=== PATIENT | female | born 1995 | race Caucasian/White ===

== ENCOUNTER 2016-05-12 11:41 | Emergency (ER) | payer OTHER ==
[2016-05-12] MEDS ORDERED: ONDANSETRON ODT 4 MG TAB PO STA (12:39)
[2016-05-12] MEDS ORDERED: ONDANSETRON 4 MG ODT STARTER PACK 2 TAB BTL PO STA (12:39)
[2016-05-12] MEDS ORDERED: DIPHENOX-ATROP STARTER PACK 8 TAB BTL PO STA (12:39)
[2016-05-12] MEDS ORDERED: DIPHENOX-ATROP 2.5-0.025 MG 1 EACH TAB PO STA (12:39)
--- NOTE | 2016-05-12 12:42 | ED ---
General Adult HPI - General Chief complaint: Nausea/Vomiting/Diarrhea Stated complaint: Vomiting/stomach pain Time Seen by Provider: 05/12/16 12:00 Source: patient, RN notes reviewed Mode of arrival: ambulatory Limitations: no limitations - History of Present Illness Initial comments: This is a 21-year-old female who presents emergency Department complaining of coughing a lot and having started vomiting last evening and having diarrhea since. Patient denies any abdominal pain but she continues to be nauseous. Patient denies any fever or chills. Patient denies any sputum production when she is coughing. Patient denies any difficulty breathing or shortness of breath or chest pain. Patient states she hasn't taken anything for the cough. Patient denies any dysuria hematuria urinary frequency. Patient denies headache patient denies numbness weakness. Patient denies any lightheadedness dizziness and episode. - Related Data Home Medications Medication Instructions Recorded Confirmed EPINEPHrine (Auto Inject) [Epipen] 0.3 mg IM ONCE PRN 07/23/15 05/12/16 Previous Rx's Medication Instructions Recorded Benzonatate [Tessalon Perles] 200 mg PO TID 4 Days 05/12/16 Allergies Allergy/AdvReac Type Severity Reaction Status Date / Time adhesive tape Allergy Rash/Hives Verified 05/12/16 12:41 venom-honey bee Allergy Anaphylaxis Verified 05/12/16 12:41 [bee venom (honey bee)] Review of Systems ROS Statement: Those systems with pertinent positive or pertinent negative responses have been documented in the HPI. ROS Other: All systems not noted in ROS Statement are negative. Past Medical History Past Medical History: Asthma, Hypertension Additional Past Medical History / Comment(s): gestational diabetes History of Any Multi-Drug Resistant Organisms: MRSA Date of last positivie culture/infection: 2014 MDRO Source:: Skin Past Surgical History: Section, Cholecystectomy Past Anesthesia/Blood Transfusion Reactions: Postoperative Nausea & Vomiting ( PONV) Past Psychological History: No Psychological Hx Reported Smoking Status: Never smoker Past Alcohol Use History: None Reported Past Drug Use History: None Reported - Past Family History Mother Family Medical History: No Reported History General Exam - General Exam Comments Initial Comments: GENERAL: Patient is well-developed and well-nourished. Patient is nontoxic and well- hydrated and is in mild distress. ENT: Neck is soft and supple. No significant lymphadenopathy is noted. Oropharynx is clear. Moist mucous membranes. Neck has full range of motion without eliciting any pain. EYES: The sclera were anicteric and conjunctiva were pink and moist. Extraocular movements were intact and pupils were equal round and reactive to light. Eyelids were unremarkable. PULMONARY: Unlabored respirations. Good breath sounds bilaterally. No audible rales rhonchi or wheezing was noted. CARDIOVASCULAR: There is a regular rate and rhythm without any murmurs gallops or rubs. ABDOMEN: Soft and nontender with normal bowel sounds. No palpable organomegaly was noted. There is no palpable pulsatile mass. SKIN: Skin is clear with no lesions or rashes and otherwise unremarkable. NEUROLOGIC: Patient is alert and oriented x3. Cranial nerves II through XII are grossly intact. Motor and sensory are also intact. Normal speech, volume and content. Symmetrical smile. MUSCULOSKELETAL: Normal extremities with adequate strength and full range of motion. No lower extremity swelling or edema. No calf tenderness. LYMPHATICS: No significant lymphadenopathy is noted PSYCHIATRIC: Normal psychiatric evaluation. Normal interpersonal interactions appears functionally intact in deals appropriately with others. No signs of depression. No signs of anxiety. Limitations: no limitations Course Vital Signs 05/12/16 11:49 Temperature 97.8 F Pulse Rate 108 H Respiratory 20 Rate Blood Pressure 131/84 O2 Sat by Pulse 98 Oximetry Medical Decision Making - Medical Decision Making Chest x-ray is normal. Disposition Clinical Impression: Upper respiratory disease, Gastroenteritis Disposition: HOME SELF-CARE Condition: Good Instructions: Gastroenteritis (ED) Prescriptions: Benzonatate [Tessalon Perles] 200 mg PO TID 4 Days Referrals: Felipa Mesa MD [Primary Care Provider] - 1-2 days Time of Disposition: 13:10
--- NOTE | 2016-05-12 13:11 | XR ---
EXAMINATION TYPE: XR chest 2V DATE OF EXAM: 05/12/2016 12:59 PM COMPARISON: Chest x-ray March 12, 2013. HISTORY: Difficulty breathing per order. Coughing per patient. TECHNIQUE: Frontal and lateral views of the chest are obtained. FINDINGS: There is no focal air space opacity, pleural effusion, or pneumothorax seen. The cardiac silhouette size is within normal limits. The osseous structures are intact. Cholecystectomy clips a re redemonstrated. IMPRESSION: No acute cardiopulmonary process. No significant change from prior.
[2016-05-12 13:21] VITALS: BP 133/76; PULSE 90; RESP 16; TEMP 99.1
== END 2016-05-12 13:32 | disposition home or self-care (01) ==
LOC: EC 11:41
DX: K52.9 Noninfective gastroenteritis and colitis, unspecified (principal); J39.9 Disease of upper respiratory tract, unspecified
CPT/HCPCS: 71020; 99284; S0119

== ENCOUNTER 2016-05-14 19:26 | Emergency (ER) | payer OTHER ==
[2016-05-14] MEDS ORDERED: SODIUM CHLORIDE 0.9% 1,000 ML IV STA ×2 (20:08)
[2016-05-14] MEDS ORDERED: ACETAMINOPHEN IV (For NPO) 1,000 MG in SALINE 100 100ML.BAG IVPB STA (20:08)
[2016-05-14] MEDS ORDERED: ONDANSETRON 4 MG/2 ML VIAL IVP STA (20:10)
[2016-05-14] MEDS ORDERED: MECLIZINE 12.5 MG TAB PO STA (20:10)
--- NOTE | 2016-05-14 20:11 | ED ---
General Adult HPI - General Chief complaint: Dizziness Stated complaint: SOB Time Seen by Provider: 05/14/16 20:01 Source: patient, RN notes reviewed, old records reviewed Mode of arrival: ambulatory Limitations: no limitations - History of Present Illness Initial comments: Patient 21-year-old female who presents emergency room today with a chief complaint of increased cough congestion over the last 3 days. Does admit that she was seen here in the emergency room for this a few days ago had a chest x- ray was negative given cough medication go home with. Patient states that symptoms have increased. Admits cough with positive sputum production. Admits to sore throat. States fevers at home. States he really nauseated and having some vomiting. States feeling dizzy lightheaded at times. He describes as room spinning. Denies any other complaints associated symptoms. Patient denies any recent shortness of breath, chest pain, back pain, abdominal pain, nausea or vomiting, numbness or tingling, dysuria or hematuria, constipation or diarrhea, headaches or visual changes, or any other complaints. - Related Data Home Medications Medication Instructions Recorded Confirmed EPINEPHrine (Auto Inject) [Epipen] 0.3 mg IM ONCE PRN 07/23/15 05/14/16 Ibuprofen [Motrin] 200 mg PO Q6HR PRN 05/14/16 05/14/16 Previous Rx's Medication Instructions Recorded Benzonatate [Tessalon Perles] 200 mg PO TID 4 Days 05/12/16 Acetaminophen Tab [Tylenol] 1,000 mg PO TID 5 Days 05/14/16 Ibuprofen [Motrin] 600 mg PO Q6HR PRN #20 day 05/14/16 Oseltamivir [Tamiflu] 75 mg PO Q12HR 5 Days 05/14/16 Allergies Allergy/AdvReac Type Severity Reaction Status Date / Time adhesive tape Allergy Rash/Hives Verified 05/14/16 20:20 venom-honey bee Allergy Anaphylaxis Verified 05/14/16 20:20 [bee venom (honey bee)] Review of Systems ROS Statement: Those systems with pertinent positive or pertinent negative responses have been documented in the HPI. ROS Other: All systems not noted in ROS Statement are negative. Past Medical History Past Medical History: Asthma, Hypertension Additional Past Medical History / Comment(s): gestational diabetes History of Any Multi-Drug Resistant Organisms: MRSA Date of last positivie culture/infection: 2015 MDRO Source:: Skin Past Surgical History: Section, Cholecystectomy Past Anesthesia/Blood Transfusion Reactions: Postoperative Nausea & Vomiting ( PONV) Past Psychological History: No Psychological Hx Reported Smoking Status: Never smoker Past Alcohol Use History: None Reported Past Drug Use History: None Reported - Past Family History Mother Family Medical History: No Reported History General Exam - General Exam Comments Initial Comments: General: The patient is awake and alert, in no distress, and does not appear acutely ill. Eye: Pupils are equal, round and reactive to light, extra-ocular movements are intact. No nystagmus. There is normal conjunctiva bilaterally. No signs of icterus. Ears, nose, mouth and throat: There are moist mucous membranes and no oral lesions. Neck: The neck is supple, there is no tenderness or JVD. Cardiovascular: There is a regular rate and rhythm. No murmur, rub or gallop is appreciated. Respiratory: Lungs are clear to auscultation, respirations are non-labored, breath sounds are equal. No wheezes, stridor, rales, or rhonchi. Gastrointestinal: Soft, non-distended, non-tender abdomen without masses or organomegaly noted. There is no rebound or guarding present. No CVA tenderness. Bowel sounds are unremarkable. Musculoskeletal: Normal ROM, no tenderness. Strength 5/5. Sensation intact. Pulses equal bilaterally 2+. Neurological: A&O x 3. CN II-XII intact, There are no obvious motor or sensory deficits. Coordination appears grossly intact. Speech is normal. Skin: Skin is warm and dry and no rashes or lesions are noted. Psychiatric: Cooperative, appropriate mood & affect, normal judgment. Limitations: no limitations Course Vital Signs 05/14/16 19:55 Temperature 103.1 F H Pulse Rate 124 H Respiratory 20 Rate Blood Pressure 130/85 O2 Sat by Pulse 98 Oximetry Medical Decision Making - Medical Decision Making Patient has been on menstrual cycle. Labs reviewed shows large amount of blood in the urinalysis. Patient remained labs shows influenza B-positive chest x- rays negative. Patient reexamined at this time her recurrent 106 receiving approximately half the bolus at this time. We'll remain for the remaining bolus. Feeling better. Fever improved for 101.3F. Patient was started on Tamiflu his symptoms started 2 days ago advised continue Tylenol / ibuprofen. - Lab Data Result diagrams: 05/14/16 20:50 05/14/16 20:50 Lab Results 05/14/16 05/14/16 05/14/16 Range/Units 20:50 20:50 20:50 WBC 4.8 (3.8-10.6) k/uL RBC 4.84 (3.80-5.40) m/uL Hgb 14.2 (11.4-16.0) gm/dL Hct 42.6 (34.0-46.0) % MCV 88.0 (80.0-100.0) fL MCH 29.4 (25.0-35.0) pg MCHC 33.4 (31.0-37.0) g/dL RDW 13.2 (11.5-15.5) % Plt Count 200 (150-450) k/uL Neutrophils % 64 % Lymphocytes % 26 % Monocytes % 6 % Eosinophils % 1 % Basophils % 0 % Neutrophils # 3.1 (1.3-7.7) k/uL Lymphocytes # 1.3 (1.0-4.8) k/uL Monocytes # 0.3 (0-1.0) k/uL Eosinophils # 0.0 (0-0.7) k/uL Basophils # 0.0 (0-0.2) k/uL Sodium 140 (137-145) mmol/L Potassium 4.0 (3.5-5.1) mmol/L Chloride 104 (98-107) mmol/L Carbon Dioxide 25 (22-30) mmol/L Anion Gap 11 mmol/L BUN 13 (7-17) mg/dL Creatinine 0.72 (0.52-1.04) mg/dL Est GFR (MDRD) Af Amer >60 (>60 ml/min/1.73 sqM) Est GFR (MDRD) Non-Af >60 (>60 ml/min/1.73 sqM) Glucose 80 (74-99) mg/dL Calcium 9.0 (8.4-10.2) mg/dL Total Bilirubin 0.5 (0.2-1.3) mg/dL AST 30 (14-36) U/L ALT 39 (9-52) U/L Alkaline Phosphatase 74 (38-126) U/L Total Protein 7.1 (6.3-8.2) g/dL Albumin 4.2 (3.5-5.0) g/dL Urine Color Urine Appearance (Clear) Urine pH (5.0-8.0) Ur Specific [place] (1.001-1.035) Urine Protein (Negative) Urine Glucose (UA) (Negative) Urine Ketones (Negative) Urine Blood (Negative) Urine Nitrate (Negative) Urine Bilirubin (Negative) Urine Urobilinogen (<2.0) mg/dL Ur Leukocyte Esterase (Negative) Urine RBC (0-5) /hpf Urine WBC (0-5) /hpf Ur Squamous Epith Cells (0-4) /hpf Urine Mucus (None) /hpf Influenza Type A RNA Not Detected (Not Detectd) Influenza Type B (PCR) Detected H (Not Detectd) Group A Strep Rapid (Negative) 05/14/16 05/14/16 Range/Units 20:50 20:50 WBC (3.8-10.6) k/uL RBC (3.80-5.40) m/uL Hgb (11.4-16.0) gm/dL Hct (34.0-46.0) % MCV (80.0-100.0) fL MCH (25.0-35.0) pg MCHC (31.0-37.0) g/dL RDW (11.5-15.5) % Plt Count (150-450) k/uL Neutrophils % % Lymphocytes % % Monocytes % % Eosinophils % % Basophils % % Neutrophils # (1.3-7.7) k/uL Lymphocytes # (1.0-4.8) k/uL Monocytes # (0-1.0) k/uL Eosinophils # (0-0.7) k/uL Basophils # (0-0.2) k/uL Sodium (137-145) mmol/L Potassium (3.5-5.1) mmol/L Chloride (98-107) mmol/L Carbon Dioxide (22-30) mmol/L Anion Gap mmol/L BUN (7-17) mg/dL Creatinine (0.52-1.04) mg/dL Est GFR (MDRD) Af Amer (>60 ml/min/1.73 sqM) Est GFR (MDRD) Non-Af (>60 ml/min/1.73 sqM) Glucose (74-99) mg/dL Calcium (8.4-10.2) mg/dL Total Bilirubin (0.2-1.3) mg/dL AST (14-36) U/L ALT (9-52) U/L Alkaline Phosphatase (38-126) U/L Total Protein (6.3-8.2) g/dL Albumin (3.5-5.0) g/dL Urine Color Light Red Urine Appearance Clear (Clear) Urine pH 5.5 (5.0-8.0) Ur Specific [place] 1.022 (1.001-1.035) Urine Protein 1+ H (Negative) Urine Glucose (UA) Negative (Negative) Urine Ketones Negative (Negative) Urine Blood Large H (Negative) Urine Nitrate Negative (Negative) Urine Bilirubin Negative (Negative) Urine Urobilinogen <2.0 (<2.0) mg/dL Ur Leukocyte Esterase Trace H (Negative) Urine RBC >182 H (0-5) /hpf Urine WBC 20 H (0-5) /hpf Ur Squamous Epith Cells 3 (0-4) /hpf Urine Mucus Rare H (None) /hpf Influenza Type A RNA (Not Detectd) Influenza Type B (PCR) (Not Detectd) Group A Strep Rapid Negative (Negative) Disposition Clinical Impression: Influenza B Disposition: HOME SELF-CARE Condition: Good Instructions: Influenza (ED) Additional Instructions: Please use medication as discussed. Please follow-up with family doctor in the next 2 days of symptoms have not improved. Please return to emergency room if the symptoms increase or worsen or for any other concerns. Prescriptions: Acetaminophen Tab [Tylenol] 1,000 mg PO TID 5 Days Ibuprofen [Motrin] 600 mg PO Q6HR PRN #20 day PRN Reason: Pain Oseltamivir [Tamiflu] 75 mg PO Q12HR 5 Days Time of Disposition: 21:45
[2016-05-14 21:11] LABS: Basophils % (A) 0 %; CH 29.8; Eosinophils % (A) 1 %; HCT 42.6 % (34.0-46.0); HDW 2.97; HGB 14.2 gm/dL (11.4-16.0); Luc # (Auto) 0.12; Luc % (Auto) 3; Lymphocytes # (A) 1.3 k/uL (1.0-4.8); Lymphocytes % (A) 26 %; MCH 29.4 pg (25.0-35.0); MCHC 33.4 g/dL (31.0-37.0); Mean Platelet Volume 7.6; Monocytes # (A) 0.3 k/uL (0-1.0); Monocytes % (A) 6 %; Neutrophils # (A) 3.1 k/uL (1.3-7.7); Neutrophils % (A) 64 %; RBC 4.84 m/uL (3.80-5.40); RDW 13.2 % (11.5-15.5); WBC 4.8 k/uL (3.8-10.6); WBC (Perox) 4.57
[2016-05-14 21:19] LABS: Appearance,Urine Clear (Clear); Bilirubin,Urine Negative (Negative); Glucose,Urine (UA) Negative (Negative); Ketones,Urine Negative (Negative); Leukocyte Esterase,Urine Trace (Negative); Mucus,Urine Rare /hpf; Nitrite,Urine Negative (Negative); PH, Urine 5.5 (5.0-8.0); Particle Count 12196; Protein,Urine 1+ (Negative); RBC,Urine >182 /hpf (0-5); Specific Gravity,Urine 1.022 (1.001-1.035); Squamous Epithelial Cell,Urine 3 /hpf (0-4); UA Billing (MACRO vs. MICRO) MICRO; Urobilinogen,Urine <2.0 mg/dL (<2.0); WBC,Urine 20 /hpf (0-5)
[2016-05-14 21:26] LABS: ALT 39 U/L (9-52); AST 30 U/L (14-36); Alkaline Phosphatase 74 U/L (38-126); Anion Gap 11 mmol/L; Blood Urea Nitrogen 13 mg/dL (7-17); Carbon Dioxide 25 mmol/L (22-30); Chloride 104 mmol/L (98-107); Glucose 80 mg/dL (74-99); Non-African American GFR(MDRD) >60 (>60 ml/min/1.73 sqM); Sodium 140 mmol/L (137-145); Total Bilirubin 0.5 mg/dL (0.2-1.3); Total Protein 7.1 g/dL (6.3-8.2)
--- NOTE | 2016-05-14 21:42 | XR ---
EXAMINATION TYPE: XR chest 2V DATE OF EXAM: 05/14/2016 9:22 PM COMPARISON: 05/12/2016 HISTORY: Cough and congestion TECHNIQUE: Frontal and lateral views of the chest are obtained. FINDINGS: Heart and mediastinum are normal. Lungs are clear. Diaphragm is normal. Bony thorax is int act. IMPRESSION: Normal chest. No change.
[2016-05-14] MEDS ORDERED: IBUPROFEN 600 MG TAB PO STA (21:44)
[2016-05-14 22:05] VITALS: BP 106/58; PULSE 102; RESP 18; TEMP 101.4
== END 2016-05-14 22:05 | disposition home or self-care (01) ==
LOC: EC 19:26
DX: J10.1 Influenza due to other identified influenza virus with other respiratory manifestations (principal); R42 Dizziness and giddiness; R11.2 Nausea with vomiting, unspecified; Z91.030 Bee allergy status; Z91.048 Other nonmedicinal substance allergy status
CPT/HCPCS: 36415; 93005; 80053; 85025; 81001; 87040; 87086; 87081; 87430; 87502; 71020; 99284; 96374; 96375; 96361; J2405; J0131

== ENCOUNTER 2017-03-12 11:38 | Emergency (ER) | payer OTHER ==
[2017-03-12 11:59] VITALS: BP 125/85; PULSE 97; RESP 16; TEMP 98.9
--- NOTE | 2017-03-12 12:42 | ED ---
URI HPI - General Chief Complaint: Upper Respiratory Infection Stated Complaint: Cough Time Seen by Provider: 03/12/17 11:59 Source: patient Mode of arrival: ambulatory Limitations: no limitations - History of Present Illness Initial Comments: 22-year-old female patient presents to the emergency department today with complaints of cough and upper respiratory symptoms. Patient states that symptoms started 2-3 days ago. She states that she has had sore throat, nasal congestion, and cough. States that she does have coughing episodes that are so bad they cause her to vomit. She denies any fevers or chills with this. She denies any sputum production. She states her children have been sick with similar symptoms over the last week or 2. She states that she does become short of breath at times. Patient denies any recent rash, chest pain, abdominal pain, nausea, vomiting, diarrhea, constipation, back pain, numbness, tingling, dizziness, weakness, hematuria, dysuria, urinary urgency, urinary frequency, headache, visual changes, or any other complaints. - Related Data Home Medications Medication Instructions Recorded Confirmed EPINEPHrine (Auto Inject) [Epipen] 0.3 mg IM ONCE PRN 07/23/15 05/14/16 Ibuprofen [Motrin] 200 mg PO Q6HR PRN 05/14/16 05/14/16 Previous Rx's Medication Instructions Recorded Benzonatate [Tessalon Perles] 200 mg PO TID 4 Days capsule 05/12/16 Acetaminophen Tab [Tylenol] 1,000 mg PO TID 5 Days tablet 05/14/16 Ibuprofen [Motrin] 600 mg PO Q6HR PRN #20 day 05/14/16 Oseltamivir [Tamiflu] 75 mg PO Q12HR 5 Days cap 05/14/16 Benzonatate [Tessalon Perles] 100 mg PO TID #15 cap 03/12/17 Promethaz-Cod 6.25-10 mg/5 ml 5 ml PO Q6HR PRN #100 ml 03/12/17 [Phenergan with Codeine] Allergies Allergy/AdvReac Type Severity Reaction Status Date / Time adhesive tape Allergy Rash/Hives Verified 03/12/17 11:56 venom-honey bee Allergy Anaphylaxis Verified 03/12/17 11:56 [bee venom (honey bee)] Review of Systems ROS Statement: Those systems with pertinent positive or pertinent negative responses have been documented in the HPI. ROS Other: All systems not noted in ROS Statement are negative. Past Medical History Past Medical History: Asthma, Hypertension Additional Past Medical History / Comment(s): gestational diabetes History of Any Multi-Drug Resistant Organisms: MRSA Date of last positivie culture/infection: 2014 MDRO Source:: Skin Past Surgical History: Section, Cholecystectomy Past Anesthesia/Blood Transfusion Reactions: Postoperative Nausea & Vomiting ( PONV) Past Psychological History: No Psychological Hx Reported Smoking Status: Never smoker Past Alcohol Use History: None Reported Past Drug Use History: None Reported - Past Family History Mother Family Medical History: No Reported History General Exam Limitations: no limitations General appearance: alert, in no apparent distress, other (This is a well- developed, well-nourished, obese female patient in no acute distress. Vital signs upon presentation are temperature 98.9F, pulse 97, respirations 16, blood pressure 125/85, pulse ox 100% on room air.) Eye exam: Present: normal appearance, PERRL, EOMI. Absent: scleral icterus, conjunctival injection, periorbital swelling ENT exam: Present: normal exam, normal oropharynx, mucous membranes moist Neck exam: Present: normal inspection. Absent: tenderness, meningismus, lymphadenopathy Respiratory exam: Present: normal lung sounds bilaterally, other (Persistent cough noted throughout exam). Absent: respiratory distress, wheezes, rales, rhonchi, stridor Cardiovascular Exam: Present: regular rate, normal rhythm, normal heart sounds. Absent: systolic murmur, diastolic murmur, rubs, gallop, clicks GI/Abdominal exam: Present: soft, normal bowel sounds. Absent: distended, tenderness, guarding, rebound, rigid Neurological exam: Present: alert, oriented X3, CN II-XII intact Psychiatric exam: Present: normal affect, normal mood Skin exam: Present: warm, dry, intact, normal color. Absent: rash Course Vital Signs 03/12/17 11:56 Temperature 98.9 F Pulse Rate 97 Respiratory 16 Rate Blood Pressure 125/85 O2 Sat by Pulse 100 Oximetry Medical Decision Making - Medical Decision Making 22-year-old female patient presented to the emergency department today for evaluation of cough and upper respiratory symptoms. Physical examination was unremarkable. Lungs are clear to auscultation with good air movement. Patient had even nonlabored respirations. She did exhibit a dry cough throughout the exam. Chest x-ray was clear for any acute cardiopulmonary process. Influenza testing was negative. Patient symptoms are consistent with viral upper respiratory infection. She is instructed to increase her fluids. She is instructed to use [id number] cold remedies such as Mucinex however reports that she does not have money to buy these things. She will be given a prescription for Tessalon Perles for use during the day and Phenergan with codeine for use at night. She is instructed to follow-up with her primary care physician for recheck in 1-2 days. She is instructed to return here immediately for any new, worsening, or concerning symptoms. She verbalizes understanding and agrees with this plan. - Lab Data Lab Results 03/12/17 Range/Units 12:25 Influenza Type A RNA Not Detected (Not Detectd) Influenza Type B (PCR) Not Detected (Not Detectd) - Radiology Data Radiology results: report reviewed, image reviewed 2 views of the chest are obtained and show no focal airspace opacity. No evidence for pneumothorax. No pleural effusion. The cardiac silhouette size is within normal limits. The osseous structures are grossly intact. Impression by Dr. Peoples shows no acute cardiopulmonary process. Disposition Clinical Impression: Viral upper respiratory illness Disposition: HOME SELF-CARE Condition: Good Instructions: Upper Respiratory Infection (ED) Additional Instructions: Increase fluids. Rest. Use [id number] nasal decongestants for symptom relief. Take cough medication as directed. Follow-up with your primary care physician for recheck in 1-2 days. Return here immediately for any new, worsening, or concerning symptoms. Prescriptions: Benzonatate [Tessalon Perles] 100 mg PO TID #15 cap Promethaz-Cod 6.25-10 mg/5 ml [Phenergan with Codeine] 5 ml PO Q6HR PRN #100 ml PRN Reason: Cough Referrals: Felipa Mesa MD [Primary Care Provider] - 1-2 days Time of Disposition: 13:16
--- NOTE | 2017-03-12 12:44 | XR ---
EXAMINATION TYPE: XR chest 2V DATE OF EXAM: 03/12/2017 COMPARISON: 05/14/2016 HISTORY: Chest pain TECHNIQUE: Frontal and lateral views of the chest are obtained. FINDINGS: There is no focal air space opacity. No evidence for pneumothorax. No pleural effusion. The cardiac silhouette size is within normal limits. The osseous structures are grossly intact. IMPRESSION: 1. No acute cardiopulmonary process.
== END 2017-03-12 13:23 | disposition home or self-care (01) ==
LOC: EC 11:38
DX: J06.9 Acute upper respiratory infection, unspecified (principal); Z86.14 Personal history of Methicillin resistant Staphylococcus aureus infection; Z91.030 Bee allergy status; Z91.048 Other nonmedicinal substance allergy status
CPT/HCPCS: 71046; 87502; 99283

== ENCOUNTER 2017-12-09 11:37 | Emergency (ER) | payer OTHER ==
[2017-12-09 11:44] VITALS: BP 146/96; PULSE 96; RESP 20; TEMP 98.1
--- NOTE | 2017-12-09 12:05 | ED ---
General Adult HPI - General Chief complaint: Dental/Oral Stated complaint: dental pain Time Seen by Provider: 12/09/17 11:46 Source: patient, RN notes reviewed Mode of arrival: ambulatory Limitations: no limitations - History of Present Illness Initial comments: Patient's a 22-year-old female presents emergency room today with a chief complaint of increased dental pain. Patient admits that she's been trying follow-up with a dentist. Patient states that increased pain on both the right upper and lower jaw. States that was in teeth pushing 3. She states that she' s had small pieces that appropriate way. Patient admits increased pain over the last day. Denies any drainage. States she's been using [id number] Tylenol/ibuprofen for pain. Denies any other complaints or symptoms. Patient denies any recent fever, chills, shortness of breath, chest pain, back pain, abdominal pain, nausea or vomiting, or any other complaints. - Related Data Home Medications Medication Instructions Recorded Confirmed EPINEPHrine (Auto Inject) [Epipen] 0.3 mg IM ONCE PRN 07/23/15 05/14/16 Ibuprofen [Motrin] 200 mg PO Q6HR PRN 05/14/16 05/14/16 Previous Rx's Medication Instructions Recorded Benzonatate [Tessalon Perles] 200 mg PO TID 4 Days capsule 05/12/16 Acetaminophen Tab [Tylenol] 1,000 mg PO TID 5 Days tablet 05/14/16 Ibuprofen [Motrin] 600 mg PO Q6HR PRN #20 day 05/14/16 Oseltamivir [Tamiflu] 75 mg PO Q12HR 5 Days cap 05/14/16 Benzonatate [Tessalon Perles] 100 mg PO TID #15 cap 03/12/17 Promethaz-Cod 6.25-10 mg/5 ml 5 ml PO Q6HR PRN #100 ml 03/12/17 [Phenergan with Codeine] Acetaminophen Tab [Tylenol] 1,000 mg PO TID 5 Days tablet 12/09/17 Ibuprofen [Motrin] 600 mg PO Q6HR PRN #40 day 12/09/17 Penicillin V Potassium [Pen Vee K] 500 mg PO QID #40 tablet 12/09/17 Allergies Allergy/AdvReac Type Severity Reaction Status Date / Time adhesive tape Allergy Rash/Hives Verified 12/09/17 11:40 venom-honey bee Allergy Anaphylaxis Verified 12/09/17 11:40 [bee venom (honey bee)] Review of Systems ROS Statement: Those systems with pertinent positive or pertinent negative responses have been documented in the HPI. ROS Other: All systems not noted in ROS Statement are negative. Past Medical History Past Medical History: Asthma, Hypertension Additional Past Medical History / Comment(s): gestational diabetes History of Any Multi-Drug Resistant Organisms: MRSA Date of last positivie culture/infection: 2014 MDRO Source:: Skin Past Surgical History: Section, Cholecystectomy Past Anesthesia/Blood Transfusion Reactions: Postoperative Nausea & Vomiting ( PONV) Past Psychological History: No Psychological Hx Reported Smoking Status: Never smoker Past Alcohol Use History: None Reported Past Drug Use History: None Reported - Past Family History Mother Family Medical History: No Reported History General Exam - General Exam Comments Initial Comments: General: The patient is awake and alert, in no distress, and does not appear acutely ill. Eye: Extra-ocular movements are intact. No nystagmus. There is normal conjunctiva bilaterally. No signs of icterus. Ears, nose, mouth and throat: There are moist mucous membranes and no oral lesions. Patient does have tenderness over to teeth 1 and 32. No Drainable abscess. Uvula midline. Patient swallows without difficulty. Neck: The neck is supple, there is no tenderness or JVD. Musculoskeletal: Normal ROM, no tenderness. Sensation intact. Neurological: A&O x 3. CN II-XII intact, There are no obvious motor or sensory deficits. Coordination appears grossly intact. Speech is normal. Skin: Skin is warm and dry and no rashes or lesions are noted. Psychiatric: Cooperative, appropriate mood & affect, normal judgment. Limitations: no limitations Course Vital Signs 12/09/17 11:40 Temperature 98.1 F Pulse Rate 96 Respiratory 20 Rate Blood Pressure 146/96 O2 Sat by Pulse 95 Oximetry Medical Decision Making - Medical Decision Making Patient was given information to follow up with dentist. Patient will be started on antibiotics of penicillin. Advised continue Tylenol/ibuprofen. Advised warm compresses and saltwater gargles. Disposition Clinical Impression: Pain, dental Disposition: HOME SELF-CARE Condition: Good Instructions: Toothache (ED) Additional Instructions: Please follow-up with dentist and use antibiotic and pain medication as discussed. [facility] [place] [id number] [address] [phone]) (existing clients only) For new clients: [phone] [facility] Pay $50 for x-rays and the rest discovered [phone] Prescriptions: Acetaminophen Tab [Tylenol] 1,000 mg PO TID 5 Days tablet Ibuprofen [Motrin] 600 mg PO Q6HR PRN #40 day PRN Reason: Pain Penicillin V Potassium [Pen Vee K] 500 mg PO QID #40 tablet Is patient prescribed a controlled substance at d/c from ED?: No Referrals: Felipa Mesa MD [Primary Care Provider] - 1-2 days Time of Disposition: 12:04
== END 2017-12-09 12:10 | disposition home or self-care (01) ==
LOC: EC 11:37
DX: K08.89 Other specified disorders of teeth and supporting structures (principal); R68.84 Jaw pain; Z86.14 Personal history of Methicillin resistant Staphylococcus aureus infection; Z91.048 Other nonmedicinal substance allergy status; Z91.030 Bee allergy status
CPT/HCPCS: 99282

== ENCOUNTER 2018-01-31 21:27 | Emergency (ER) | payer OTHER ==
[2018-01-31] MEDS ORDERED: KETOROLAC 30 MG/ML 1 ML VIAL IVP STA (23:03)
--- NOTE | 2018-01-31 23:08 | ED ---
Chest Pain HPI - General Chief Complaint: Chest Pain Stated Complaint: Chest pain, left arm numb Time Seen by Provider: 01/31/18 22:08 Source: patient, RN notes reviewed Mode of arrival: ambulatory Limitations: no limitations - History of Present Illness Initial Comments: This is a 22-year-old female with no prior history of heart or lung disease who does not smoke who states she had the onset of chest pain this morning around 6 AM she states this started with some left arm numbness and left chest discomfort some dizziness with nausea she states that nausea is gone so some dizziness the pain initially was 6/10 severity now is 4-5/10 he does he worse with certain movements she's had no cough no fevers chills sweats no palpitations or other symptoms. MD Complaint: chest pain, other - Related Data Previous Rx's Medication Instructions Recorded Ibuprofen 800 mg PO Q6HR PRN #20 tablet 02/01/18 predniSONE 20 mg PO BID #10 tab 02/01/18 Allergies Allergy/AdvReac Type Severity Reaction Status Date / Time adhesive tape Allergy Rash/Hives Verified 01/31/18 22:41 venom-honey bee Allergy Anaphylaxis Verified 01/31/18 22:41 [bee venom (honey bee)] Review of Systems ROS Statement: Those systems with pertinent positive or pertinent negative responses have been documented in the HPI. ROS Other: All systems not noted in ROS Statement are negative. EKG Findings - EKG Results: EKG: interpreted by PRIYA, sinus rhythm (Sinus rhythm rate 93 NV interval 142 QRS 84 QT since QTC 364/432 minimal voltage criteria for LVH) Past Medical History Past Medical History: Asthma, Hypertension Additional Past Medical History / Comment(s): gestational diabetes History of Any Multi-Drug Resistant Organisms: MRSA Date of last positivie culture/infection: 2014 MDRO Source:: Skin Past Surgical History: Section, Cholecystectomy Past Anesthesia/Blood Transfusion Reactions: Postoperative Nausea & Vomiting ( PONV) Past Psychological History: No Psychological Hx Reported Smoking Status: Never smoker Past Alcohol Use History: None Reported Past Drug Use History: None Reported - Past Family History Mother Family Medical History: No Reported History General Exam - General Exam Comments Initial Comments: This is a well-developed well-nourished awake alert oriented 3 female Limitations: no limitations General appearance: alert, in no apparent distress Head exam: Present: atraumatic, normocephalic, normal inspection Eye exam: Present: normal appearance, PERRL, EOMI. Absent: scleral icterus, conjunctival injection, periorbital swelling ENT exam: Present: normal exam, mucous membranes moist Neck exam: Present: normal inspection. Absent: tenderness, meningismus, lymphadenopathy Respiratory exam: Present: normal lung sounds bilaterally, chest wall tenderness (Reproducible tennis palpation along the costal chondral and costosternal margins mostly on the left. No step-off no crepitation). Absent: respiratory distress, wheezes, rales, rhonchi, stridor Cardiovascular Exam: Present: regular rate, normal rhythm, normal heart sounds. Absent: systolic murmur, diastolic murmur, rubs, gallop, clicks GI/Abdominal exam: Present: soft, normal bowel sounds. Absent: distended, tenderness, guarding, rebound, rigid Extremities exam: Present: normal inspection, full ROM, normal capillary refill. Absent: tenderness, pedal edema, joint swelling, calf tenderness Back exam: Present: normal inspection Neurological exam: Present: alert, oriented X3, CN II-XII intact Psychiatric exam: Present: normal affect, normal mood Skin exam: Present: warm, dry, intact, normal color. Absent: rash Course Vital Signs 01/31/18 01/31/18 21:28 23:31 Temperature 99.1 F Pulse Rate 104 H 82 Respiratory 18 16 Rate Blood Pressure 148/85 118/58 O2 Sat by Pulse 99 100 Oximetry Chest Pain MDM - MDM I did review the imaging and report no acute findings. Patient's presentation is consistent with costochondritis I did have a long discussion with her and her family member was present regarding the findings patient be discharged on appropriate medication she did get a lot of relief from the Toradol. She'll be given medication prior to discharge and prescriptions. Disposition Clinical Impression: Chest wall syndrome, Costalchondritis Disposition: HOME SELF-CARE Condition: Good Instructions: Costochondritis (ED) Prescriptions: Ibuprofen 800 mg PO Q6HR PRN #20 tablet PRN Reason: Pain predniSONE 20 mg PO BID #10 tab Is patient prescribed a controlled substance at d/c from ED?: No Referrals: Felipa Mesa MD [Primary Care Provider] - 1-2 days
--- NOTE | 2018-01-31 23:23 | XR ---
EXAMINATION TYPE: XR chest 2V DATE OF EXAM: 01/31/2018 COMPARISON: 03/12/2017 HISTORY: Left arm numbness TECHNIQUE: Frontal and lateral views of the chest are obtained. FINDINGS: Heart and mediastinum are normal. Lungs are clear. Diaphragm is normal. Bony thorax appear s normal. IMPRESSION: Normal chest. No change.
[2018-01-31 23:59] LABS: Basophils % (A) 0 %; Eosinophils # (A) 0.1 k/uL (0-0.7); Eosinophils % (A) 1 %; HCT 40.1 % (34.0-46.0); HGB 13.2 gm/dL (11.4-16.0); Lymphocytes # (A) 2.2 k/uL (1.0-4.8); Lymphocytes % (A) 38 %; MCH 28.9 pg (25.0-35.0); MCHC 32.9 g/dL (31.0-37.0); MCV 87.7 fL (80.0-100.0); Mean Platelet Volume 8.2; Monocytes # (A) 0.3 k/uL (0-1.0); Monocytes % (A) 5 %; Neutrophils # (A) 3.1 k/uL (1.3-7.7); Neutrophils % (A) 53 %; Platelet Count 245 k/uL (150-450); RBC 4.57 m/uL (3.80-5.40); WBC 5.7 k/uL (3.8-10.6)
[2018-02-01 00:07] LABS: ALT 26 U/L (9-52); AST 27 U/L (14-36); Albumin 3.5 g/dL (3.5-5.0); Alkaline Phosphatase 53 U/L (38-126); Amylase 33 U/L (30-110); Anion Gap 8 mmol/L; Blood Urea Nitrogen 13 mg/dL (7-17); Calcium 9.1 mg/dL (8.4-10.2); Carbon Dioxide 23 mmol/L (22-30); Chloride 110 mmol/L (98-107); Glucose 126 mg/dL (74-99); Lipase 58 U/L (23-300); Potassium 4.2 mmol/L (3.5-5.1); Sodium 141 mmol/L (137-145); Total Bilirubin 0.3 mg/dL (0.2-1.3)
[2018-02-01 00:13] LABS: D-Dimer 0.5 mg/L FEU (<0.60); Partial Thromboplastin Time 22.5 sec (22.0-30.0); Prothrombin Time 9.5 sec (9.0-12.0)
[2018-02-01 00:24] LABS: Creatine Kinase 79 U/L (30-135)
[2018-02-01 00:37] LABS: Creatine Kinase MB <0.2 ng/mL (0.0-2.4); Troponin I <0.012 ng/mL (0.000-0.034)
[2018-02-01] MEDS ORDERED: HYDROmorphone 1 MG/ML 1 ML SYRINGE IVP STA (00:39)
[2018-02-01] MEDS ORDERED: methylPREDNISolone SOD SUCCI 125 MG/2 ML VIAL IV STA (00:40)
[2018-02-01] MEDS ORDERED: ONDANSETRON 4 MG/2 ML VIAL IVP STA (00:40)
[2018-02-01 01:08] VITALS: BP 130/90; PULSE 100; RESP 18; TEMP 97.5
== END 2018-02-01 01:07 | disposition home or self-care (01) ==
LOC: EC 21:27
DX: M94.0 Chondrocostal junction syndrome [Tietze] (principal); R20.0 Anesthesia of skin; R42 Dizziness and giddiness; R11.0 Nausea; J45.909 Unspecified asthma, uncomplicated; Z86.14 Personal history of Methicillin resistant Staphylococcus aureus infection; Z91.048 Other nonmedicinal substance allergy status; Z91.030 Bee allergy status
CPT/HCPCS: 36415; 93005; 85379; 83880; 80053; 82150; 82550; 82553; 83690; 83735; 84484; 85025; 85610; 85730; 71046; 99285; 96374; 96375 ×3; J2930; J2405; J1885; J1170

== ENCOUNTER 2018-02-13 07:40 | Emergency (ER) | payer OTHER ==
[2018-02-13] MEDS ORDERED: KETOROLAC 30 MG/ML 1 ML VIAL IVP STA (08:05)
[2018-02-13] MEDS ORDERED: SODIUM CHLORIDE 0.9% 1,000 ML IV STA (08:05)
[2018-02-13] MEDS ORDERED: LORazepam 2 MG/ML INJ IV STA (08:05)
--- NOTE | 2018-02-13 08:20 | ED ---
General Adult HPI - General Chief complaint: Chest Pain Stated complaint: Chest pain/nausea Time Seen by Provider: 02/13/18 07:44 Source: patient, EMS, RN notes reviewed, old records reviewed Mode of arrival: EMS Limitations: no limitations - History of Present Illness Initial comments: Patient 22-year-old female presenting to the emergency room today with a chief complaint of left-sided chest pain that started this morning at 6 AM when she was getting out of bed. She states that it's a sharp pain worse with certain movements. She does admit that she had similar pain a few weeks ago was seen here in the emergency room for this. She states she was concerned this morning as the pain was sharp some more intense and she felt like her throat was closing. She is unsure if she was having a panic attack. Patient states she's never felt like that in the past. She states symptoms have improved greatly at this time. Still expresses some pain to the left side of the chest wall that she rates at 5/10. States throat closing sensation is gone away. She does admit that she has numbness tingling into the left hand. Patient also felt nauseated. EMS did give her some Zofran and she is feeling better. Patient denies any other complaints at this time. Patient denies any recent fever, chills, shortness of breath, back pain, abdominal pain, vomiting, numbness or tingling, headaches or visual changes, or any other complaints. - Related Data Previous Rx's Medication Instructions Recorded Ibuprofen 800 mg PO Q6HR PRN #20 tablet 02/01/18 predniSONE 20 mg PO BID #10 tab 02/01/18 Ibuprofen [Motrin] 600 mg PO Q6HR PRN #40 day 02/13/18 Allergies Allergy/AdvReac Type Severity Reaction Status Date / Time adhesive tape Allergy Rash/Hives Verified 01/31/18 22:41 venom-honey bee Allergy Anaphylaxis Verified 01/31/18 22:41 [bee venom (honey bee)] Review of Systems ROS Statement: Those systems with pertinent positive or pertinent negative responses have been documented in the HPI. ROS Other: All systems not noted in ROS Statement are negative. Past Medical History Past Medical History: Asthma, Hypertension Additional Past Medical History / Comment(s): gestational diabetes History of Any Multi-Drug Resistant Organisms: MRSA Date of last positivie culture/infection: 2014 MDRO Source:: Skin Past Surgical History: Section, Cholecystectomy Past Anesthesia/Blood Transfusion Reactions: Postoperative Nausea & Vomiting ( PONV) Past Psychological History: No Psychological Hx Reported Smoking Status: Never smoker Past Alcohol Use History: None Reported Past Drug Use History: None Reported - Past Family History Mother Family Medical History: No Reported History General Exam - General Exam Comments Initial Comments: General: The patient is awake and alert, in no distress, and does not appear acutely ill. Eye: Pupils are equal, round and reactive to light, extra-ocular movements are intact. No nystagmus. There is normal conjunctiva bilaterally. No signs of icterus. Ears, nose, mouth and throat: There are moist mucous membranes and no oral lesions. Neck: The neck is supple, there is no tenderness or JVD. Cardiovascular: There is a regular rate and rhythm. No murmur, rub or gallop is appreciated. Chest pain reproduced to the anterior left side of the chest wall on palpation. Respiratory: Lungs are clear to auscultation, respirations are non-labored, breath sounds are equal. No wheezes, stridor, rales, or rhonchi Musculoskeletal: Normal ROM. Tender to palpation on the left side of the chest wall. Strength 5/5. Sensation intact. Pulses equal bilaterally 2+. Neurological: A&O x 3. CN II-XII intact, There are no obvious motor or sensory deficits. Coordination appears grossly intact. Speech is normal. Skin: Skin is warm and dry and no rashes or lesions are noted. Psychiatric: Cooperative, appropriate mood & affect, normal judgment. Limitations: no limitations Course Vital Signs 02/13/18 07:53 Temperature 99.1 F Pulse Rate 91 Respiratory 19 Rate Blood Pressure 129/70 O2 Sat by Pulse 97 Oximetry EKG Findings - EKG Comments: EKG Findings:: EKG performed at 0747: Shows normal sinus rhythm at 98 bpm. HI interval 140. QRS 70. QT/QTC 350/446. No acute ST changes. Medical Decision Making - Medical Decision Making Patient reexamined at this time shows no signs of distress she is resting comfortably. Patient does admit that symptoms have resolved after Toradol, Ativan here in the emergency room. Patient will be discharged home continued on anti-inflammatories. Her chest x-ray and labs have been reviewed. EKG showed normal sinus rhythm. Case discussed with attending physician Dr. Grimes. He had recent visit to the emergency room which was reviewed had a negative D- dimer test at that time. Patient currently doing well. Her pain is reproduced to palpation on the left side of the chest wall is felt to be musculoskeletal. She is. Following up with the family doctor over the next 2 days. Advised return if symptoms increase worsen or any other concerns. - Lab Data Result diagrams: 02/13/18 07:50 02/13/18 07:50 Lab Results 02/13/18 02/13/18 02/13/18 Range/Units 07:50 07:50 07:50 WBC 5.7 (3.8-10.6) k/uL RBC 4.37 (3.80-5.40) m/uL Hgb 12.7 (11.4-16.0) gm/dL Hct 37.4 (34.0-46.0) % MCV 85.6 (80.0-100.0) fL MCH 28.9 (25.0-35.0) pg MCHC 33.8 (31.0-37.0) g/dL RDW 13.5 (11.5-15.5) % Plt Count 223 (150-450) k/uL Neutrophils % 65 % Lymphocytes % 27 % Monocytes % 5 % Eosinophils % 2 % Basophils % 0 % Neutrophils # 3.7 (1.3-7.7) k/uL Lymphocytes # 1.5 (1.0-4.8) k/uL Monocytes # 0.3 (0-1.0) k/uL Eosinophils # 0.1 (0-0.7) k/uL Basophils # 0.0 (0-0.2) k/uL PT (9.0-12.0) sec INR (<1.2) APTT (22.0-30.0) sec Sodium 141 (137-145) mmol/L Potassium 4.2 (3.5-5.1) mmol/L Chloride 108 H (98-107) mmol/L Carbon Dioxide 24 (22-30) mmol/L Anion Gap 9 mmol/L BUN 16 (7-17) mg/dL Creatinine 0.63 (0.52-1.04) mg/dL Est GFR (CKD-EPI)AfAm >90 (>60 ml/min/1.73 sqM) Est GFR (CKD-EPI)NonAf >90 (>60 ml/min/1.73 sqM) Glucose 160 H (74-99) mg/dL Calcium 9.0 (8.4-10.2) mg/dL Total Bilirubin 0.3 (0.2-1.3) mg/dL AST 19 (14-36) U/L ALT 29 (9-52) U/L Alkaline Phosphatase 57 (38-126) U/L Total Creatine Kinase 41 (30-135) U/L CK-MB (CK-2) <0.2 (0.0-2.4) ng/mL CK-MB (CK-2) Rel Index Troponin I <0.012 (0.000-0.034) ng/mL Total Protein 5.7 L (6.3-8.2) g/dL Albumin 3.4 L (3.5-5.0) g/dL Urine Color Urine Appearance (Clear) Urine pH (5.0-8.0) Ur Specific [place] (1.001-1.035) Urine Protein (Negative) Urine Glucose (UA) (Negative) Urine Ketones (Negative) Urine Blood (Negative) Urine Nitrite (Negative) Urine Bilirubin (Negative) Urine Urobilinogen (<2.0) mg/dL Ur Leukocyte Esterase (Negative) Urine RBC (0-5) /hpf Urine WBC (0-5) /hpf Ur Squamous Epith Cells (0-4) /hpf Urine Bacteria (None) /hpf Urine Mucus (None) /hpf Urine HCG, Qual (Not Detectd) 02/13/18 02/13/18 02/13/18 Range/Units 07:50 07:50 07:50 WBC (3.8-10.6) k/uL RBC (3.80-5.40) m/uL Hgb (11.4-16.0) gm/dL Hct (34.0-46.0) % MCV (80.0-100.0) fL MCH (25.0-35.0) pg MCHC (31.0-37.0) g/dL RDW (11.5-15.5) % Plt Count (150-450) k/uL Neutrophils % % Lymphocytes % % Monocytes % % Eosinophils % % Basophils % % Neutrophils # (1.3-7.7) k/uL Lymphocytes # (1.0-4.8) k/uL Monocytes # (0-1.0) k/uL Eosinophils # (0-0.7) k/uL Basophils # (0-0.2) k/uL PT 9.4 (9.0-12.0) sec INR 0.9 (<1.2) APTT 23.1 (22.0-30.0) sec Sodium (137-145) mmol/L Potassium (3.5-5.1) mmol/L Chloride (98-107) mmol/L Carbon Dioxide (22-30) mmol/L Anion Gap mmol/L BUN (7-17) mg/dL Creatinine (0.52-1.04) mg/dL Est GFR (CKD-EPI)AfAm (>60 ml/min/1.73 sqM) Est GFR (CKD-EPI)NonAf (>60 ml/min/1.73 sqM) Glucose (74-99) mg/dL Calcium (8.4-10.2) mg/dL Total Bilirubin (0.2-1.3) mg/dL AST (14-36) U/L ALT (9-52) U/L Alkaline Phosphatase (38-126) U/L Total Creatine Kinase (30-135) U/L CK-MB (CK-2) (0.0-2.4) ng/mL CK-MB (CK-2) Rel Index Troponin I (0.000-0.034) ng/mL Total Protein (6.3-8.2) g/dL Albumin (3.5-5.0) g/dL Urine Color Light Yellow Urine Appearance Clear (Clear) Urine pH 5.0 (5.0-8.0) Ur Specific [place] 1.013 (1.001-1.035) Urine Protein Negative (Negative) Urine Glucose (UA) Negative (Negative) Urine Ketones Negative (Negative) Urine Blood Large H (Negative) Urine Nitrite Negative (Negative) Urine Bilirubin Negative (Negative) Urine Urobilinogen <2.0 (<2.0) mg/dL Ur Leukocyte Esterase Negative (Negative) Urine RBC 39 H (0-5) /hpf Urine WBC 1 (0-5) /hpf Ur Squamous Epith Cells 2 (0-4) /hpf Urine Bacteria Rare H (None) /hpf Urine Mucus Rare H (None) /hpf Urine HCG, Qual Not Detected (Not Detectd) Disposition Clinical Impression: Chest wall pain Disposition: HOME SELF-CARE Condition: Good Instructions: Chest Wall Pain (ED) Additional Instructions: Please use medication as discussed. Please follow-up with family doctor in the next 2 days of symptoms have not improved. Please return to emergency room if the symptoms increase or worsen or for any other concerns. Prescriptions: Ibuprofen [Motrin] 600 mg PO Q6HR PRN #40 day PRN Reason: Pain Is patient prescribed a controlled substance at d/c from ED?: No Referrals: Felipa Mesa MD [Primary Care Provider] - 1-2 days Time of Disposition: 10:21
[2018-02-13 08:45] LABS: Basophils % (A) 0 %; Eosinophils # (A) 0.1 k/uL (0-0.7); Eosinophils % (A) 2 %; HCT 37.4 % (34.0-46.0); HGB 12.7 gm/dL (11.4-16.0); Lymphocytes # (A) 1.5 k/uL (1.0-4.8); Lymphocytes % (A) 27 %; MCH 28.9 pg (25.0-35.0); MCHC 33.8 g/dL (31.0-37.0); MCV 85.6 fL (80.0-100.0); Mean Platelet Volume 7.7; Monocytes # (A) 0.3 k/uL (0-1.0); Monocytes % (A) 5 %; Neutrophils # (A) 3.7 k/uL (1.3-7.7); Neutrophils % (A) 65 %; Platelet Count 223 k/uL (150-450); RBC 4.37 m/uL (3.80-5.40); RDW 13.5 % (11.5-15.5); WBC 5.7 k/uL (3.8-10.6)
[2018-02-13 08:51] LABS: Appearance,Urine Clear (Clear); Bacteria,Urine Rare /hpf; Bilirubin,Urine Negative (Negative); Blood,Urine Large (Negative); Color,Urine Light Yellow; Glucose,Urine (UA) Negative (Negative); Ketones,Urine Negative (Negative); Leukocyte Esterase,Urine Negative (Negative); Mucus,Urine Rare /hpf; Nitrite,Urine Negative (Negative); Protein,Urine Negative (Negative); RBC,Urine 39 /hpf (0-5); Specific Gravity,Urine 1.013 (1.001-1.035); Squamous Epithelial Cell,Urine 2 /hpf (0-4); Urobilinogen,Urine <2.0 mg/dL (<2.0)
[2018-02-13 08:53] LABS: ALT 29 U/L (9-52); AST 19 U/L (14-36); Albumin 3.4 g/dL (3.5-5.0); Alkaline Phosphatase 57 U/L (38-126); Anion Gap 9 mmol/L; Blood Urea Nitrogen 16 mg/dL (7-17); Carbon Dioxide 24 mmol/L (22-30); Chloride 108 mmol/L (98-107); Glucose 160 mg/dL (74-99); Potassium 4.2 mmol/L (3.5-5.1); Sodium 141 mmol/L (137-145); Total Bilirubin 0.3 mg/dL (0.2-1.3); Total Protein 5.7 g/dL (6.3-8.2)
--- NOTE | 2018-02-13 08:54 | XR ---
EXAMINATION TYPE: XR chest 2V DATE OF EXAM: 02/13/2018 HISTORY: Fever and chills. REFERENCE: Previous study dated 01/31/2018. FINDINGS: The heart is mildly enlarged. There is mild vascular congestion without interstitial change . Pleural spaces are clear. IMPRESSION: 1. MILD CARDIOMEGALY. 2. VASCULAR CONGESTION.
[2018-02-13 08:58] LABS: INR 0.9 (<1.2); Partial Thromboplastin Time 23.1 sec (22.0-30.0); Prothrombin Time 9.4 sec (9.0-12.0)
[2018-02-13 09:16] LABS: Creatine Kinase 41 U/L (30-135)
[2018-02-13 09:29] LABS: Creatine Kinase MB <0.2 ng/mL (0.0-2.4); Troponin I <0.012 ng/mL (0.000-0.034)
[2018-02-13 10:26] VITALS: BP 119/81; PULSE 72; RESP 18; TEMP 98.4
== END 2018-02-13 10:27 | disposition home or self-care (01) ==
LOC: EC 07:40
DX: R07.89 Other chest pain (principal); R11.0 Nausea; Z91.048 Other nonmedicinal substance allergy status; Z91.030 Bee allergy status
CPT/HCPCS: 36415; 93005; 80053; 82550; 82553; 84484; 85025; 85610; 85730; 81001; 81025; 71046; 99285; 96374; 96375; 96361; J2060; J1885

== ENCOUNTER 2018-02-16 18:46 | Emergency (ER) | payer OTHER ==
[2018-02-16] MEDS ORDERED: LORazepam 1 MG TAB PO STA (20:32)
--- NOTE | 2018-02-16 21:03 | ED ---
Psych HPI - General Chief Complaint: Psychiatric Symptoms Stated Complaint: Mental Health Time Seen by Provider: 02/16/18 19:21 Source: patient, family, RN notes reviewed, old records reviewed Mode of arrival: ambulatory - History of Present Illness Initial Comments: Patient is a 22-year-old female with a history of anxiety and panic disorder. She presents today feeling like she is going to . She certainly started on Paxil by her primary care provider today. Patient states that she has this feeling of impending doom. She states that today she started to have feelings of suicidal thoughts. No specific plan. She states she does have a good life and knows that she will not complete suicidal action. She denies any other physical complaints at this time. - Related Data Home Medications Medication Instructions Recorded Confirmed Cyclobenzaprine [Flexeril] 10 mg PO TID PRN 02/16/18 02/16/18 PARoxetine [Paxil] 20 mg PO DAILY 02/16/18 02/16/18 Previous Rx's Medication Instructions Recorded Ibuprofen [Motrin] 600 mg PO Q6HR PRN #40 day 02/13/18 Allergies Allergy/AdvReac Type Severity Reaction Status Date / Time adhesive tape Allergy Rash/Hives Verified 02/16/18 19:48 prednisone Allergy Swelling Verified 02/16/18 19:48 venom-honey bee Allergy Anaphylaxis Verified 02/16/18 19:48 [bee venom (honey bee)] Review of Systems ROS Statement: Those systems with pertinent positive or pertinent negative responses have been documented in the HPI. ROS Other: All systems not noted in ROS Statement are negative. Past Medical History Past Medical History: Asthma, Hypertension Additional Past Medical History / Comment(s): gestational diabetes History of Any Multi-Drug Resistant Organisms: MRSA Date of last positivie culture/infection: 2014 MDRO Source:: Skin Past Surgical History: Section, Cholecystectomy Past Anesthesia/Blood Transfusion Reactions: Postoperative Nausea & Vomiting ( PONV) Past Psychological History: Anxiety, Panic Disorder Smoking Status: Never smoker Past Alcohol Use History: None Reported Past Drug Use History: None Reported - Past Family History Mother Family Medical History: No Reported History General Exam - General Exam Comments Initial Comments: This is an anxious appearing 22-year-old female. No acute distress. General: Well appearing, well nourished, in no distress. Oriented x 3, normal mood and affect . Ambulating without difficulty. Skin: Good turgor, no rash, unusual bruising or prominent lesions Hair: Normal texture and distribution. HEENT: Head: Normocephalic, atraumatic, no visible or palpable masses, depressions, or scaring. Eyes: Visual acuity intact, conjunctiva clear, sclera non-icteric, EOM intact, PERRL. Ears: EACs clear, TMs translucent & cone of light visualized. hearing intact. Nose: No external lesions, mucosa non-inflamed, septum and turbinates normal Mouth: Mucous membranes moist, no mucosal lesions. Teeth/Gums: No obvious caries or periodontal disease. No gingival inflammation or significant resorption. Pharynx: Mucosa non-inflamed, no tonsillar hypertrophy or exudate Neck: Supple, without lesions, bruits, or adenopathy, thyroid non-enlarged and non-tender Heart: No cardiomegaly or thrills; regular rate and rhythm, no murmur or gallop Lungs: Clear to auscultation and percussion Abdomen: Bowel sounds normal, no tenderness, organomegaly, masses, or hernia Extremities: No amputations or deformities, cyanosis, edema or varicosities, peripheral pulses intact Musculoskeletal: Normal gait and station. No misalignment, asymmetry, crepitation, defects, tenderness, masses, effusions, decreased range of motion, instability, atrophy or abnormal strength or tone in the head, neck, spine, ribs , pelvis or extremities. Neurologic: CN 2-12 normal. Sensation to pain, touch, and proprioception normal. DTRs normal in upper and lower extremities. No pathologic reflexes. Psychiatric: Oriented X3, Patient is anxious. States she's panicked. Feels impending doom. Limitations: no limitations Course Vital Signs 02/16/18 02/16/18 19:03 21:15 Temperature 98.4 F 99.1 F Pulse Rate 122 H 89 Respiratory 20 18 Rate Blood Pressure 126/80 138/78 O2 Sat by Pulse 99 98 Oximetry Medical Decision Making - Medical Decision Making 20 for a female history of panic disorder presents today with anxiety. She states she's had fleeting suicidal thoughts. No specific plan. At this time Patient is medically clear for EPS violation. Patient was seen by EPS. Patient was deemed to be discharged home with stable outpatient condition she' ll follow up with services. They do request 1 mg of Ativan by mouth to take at home for anxiety. Patient will be given give the Patient 1mgAtivan here in the emergency department. All questions answered return parameters were discussed. Following up outpatient counseling services. - Lab Data Lab Results 02/16/18 02/16/18 Range/Units 20:42 20:42 Urine HCG, Qual Not Detected (Not Detectd) Urine Opiates Screen Not Detected (NotDetected) Ur Oxycodone Screen Not Detected (NotDetected) Urine Methadone Screen Not Detected (NotDetected) Ur Propoxyphene Screen Not Detected (NotDetected) Ur Barbiturates Screen Not Detected (NotDetected) U Tricyclic Antidepress Not Detected (NotDetected) Ur Phencyclidine Scrn Not Detected (NotDetected) Ur Amphetamines Screen Not Detected (NotDetected) U Methamphetamines Scrn Not Detected (NotDetected) U Benzodiazepines Scrn Detected H (NotDetected) Urine Cocaine Screen Not Detected (NotDetected) U Marijuana (THC) Screen Not Detected (NotDetected) Disposition Clinical Impression: Anxiety, Panic disorder Disposition: HOME SELF-CARE Condition: Good Instructions: Help Prevent Suicide (ED), Anxiety (ED) Additional Instructions: Patient advised to follow-up with outpatient referrals for anxiety and depression. Return to emergency department if any alarming signs or symptoms occur. Is patient prescribed a controlled substance at d/c from ED?: No Referrals: Felipa Mesa MD [Primary Care Provider] - 1-2 days Time of Disposition: 21:03
[2018-02-16 21:11] LABS: Amphetamine Screen,Urine Not Detected (NotDetected); Barbiturate Screen,Urine Not Detected (NotDetected); Benzodiazepines Screen,Urine Detected (NotDetected); Cocaine Screen,Urine Not Detected (NotDetected); Methadone Screen, Urine Not Detected (NotDetected); Opiate Screen,Urine Not Detected (NotDetected); Oxycodone Screen, Urine Not Detected (NotDetected); Phencyclidine Screen,Urine Not Detected (NotDetected); Tricyclic Antidepressant,Urine Not Detected (NotDetected); Urn Cannabinoid Scrn Not Detected (NotDetected)
[2018-02-16 21:16] VITALS: BP 138/78; PULSE 89; RESP 18; TEMP 99.1
== END 2018-02-16 21:14 | disposition home or self-care (01) ==
LOC: EC 18:46
DX: F41.0 Panic disorder [episodic paroxysmal anxiety] (principal); R45.851 Suicidal ideations; Z86.14 Personal history of Methicillin resistant Staphylococcus aureus infection; Z79.899 Other long term (current) drug therapy; Z91.048 Other nonmedicinal substance allergy status; Z91.030 Bee allergy status; Z88.8 Allergy status to other drugs, medicaments and biological substances
CPT/HCPCS: 80306; 81025; 82075; 99285

== ENCOUNTER 2018-02-17 20:03 | Emergency (ER) | payer OTHER ==
[2018-02-17 20:21] VITALS: TEMP 97.8
[2018-02-17 21:16] LABS: Amphetamine Screen,Urine Not Detected (NotDetected); Barbiturate Screen,Urine Not Detected (NotDetected); Benzodiazepines Screen,Urine Detected (NotDetected); Cocaine Screen,Urine Not Detected (NotDetected); Methadone Screen, Urine Not Detected (NotDetected); Opiate Screen,Urine Not Detected (NotDetected); Oxycodone Screen, Urine Not Detected (NotDetected); Phencyclidine Screen,Urine Not Detected (NotDetected); Tricyclic Antidepressant,Urine Not Detected (NotDetected); Urn Cannabinoid Scrn Not Detected (NotDetected)
--- NOTE | 2018-02-17 23:39 | ED ---
Psych HPI - General Source: patient, EMS, RN notes reviewed, old records reviewed Mode of arrival: EMS <Jasmin Jackson - Last Filed: 02/21/18 01:31> <Carol Castro P - Last Filed: 02/25/18 03:52> - General Stated Complaint: Mental Health Time Seen by Provider: 02/17/18 20:18 - History of Present Illness Initial Comments: 22-year-old female presents emergency room today with suicidal ideation. She sees images per minute yesterday for similar complaints. She states that she feels unsafe with herself. Patient reports that she's anxious. Has a pending doom feeling. (Jasmin Jackson) - Related Data Home Medications Medication Instructions Recorded Confirmed Cyclobenzaprine [Flexeril] 10 mg PO TID PRN 02/16/18 02/17/18 PARoxetine [Paxil] 20 mg PO DAILY 02/16/18 02/17/18 LORazepam [Ativan] 1 mg PO ONCE 02/17/18 02/17/18 hydrOXYzine HCL [Atarax] 25 mg PO TID PRN 02/17/18 02/17/18 Previous Rx's Medication Instructions Recorded Ibuprofen [Motrin] 600 mg PO Q6HR PRN #40 day 02/13/18 Allergies Allergy/AdvReac Type Severity Reaction Status Date / Time adhesive tape Allergy Rash/Hives Verified 02/17/18 20:28 prednisone Allergy Swelling Verified 02/17/18 20:28 venom-honey bee Allergy Anaphylaxis Verified 02/17/18 20:28 [bee venom (honey bee)] Review of Systems ROS Other: All systems not noted in ROS Statement are negative. <Jasmin Jackson - Last Filed: 02/21/18 01:31> ROS Other: All systems not noted in ROS Statement are negative. <Carol Castro P - Last Filed: 02/25/18 03:52> ROS Statement: Those systems with pertinent positive or pertinent negative responses have been documented in the HPI. Past Medical History Past Medical History: Asthma, Hypertension Additional Past Medical History / Comment(s): gestational diabetes History of Any Multi-Drug Resistant Organisms: MRSA Date of last positivie culture/infection: 2014 MDRO Source:: Skin Past Surgical History: Section, Cholecystectomy Past Anesthesia/Blood Transfusion Reactions: Postoperative Nausea & Vomiting ( PONV) Past Psychological History: Anxiety, Panic Disorder Smoking Status: Never smoker Past Alcohol Use History: None Reported Past Drug Use History: None Reported - Past Family History Mother Family Medical History: No Reported History <Jasmin Jackson - Last Filed: 02/21/18 01:31> General Exam Limitations: no limitations General appearance: alert, in no apparent distress, anxious Head exam: Present: atraumatic, normocephalic, normal inspection Eye exam: Present: normal appearance, PERRL, EOMI. Absent: scleral icterus, conjunctival injection, periorbital swelling ENT exam: Present: normal exam, mucous membranes moist Respiratory exam: Present: normal lung sounds bilaterally. Absent: respiratory distress, wheezes, rales, rhonchi, stridor Cardiovascular Exam: Present: regular rate, normal rhythm, normal heart sounds. Absent: systolic murmur, diastolic murmur, rubs, gallop, clicks Extremities exam: Present: normal inspection, full ROM, normal capillary refill. Absent: tenderness, pedal edema, joint swelling, calf tenderness Back exam: Present: normal inspection Neurological exam: Present: alert, oriented X3, CN II-XII intact Psychiatric exam: Present: normal affect, depressed (Fleeting suicidal thoughts and manic. Patient denies plan. ) Skin exam: Present: warm, dry, intact, normal color. Absent: rash <Jasmin Jackson - Last Filed: 02/21/18 01:31> <Carol Castro P - Last Filed: 02/25/18 03:52> - General Exam Comments Initial Comments: 22-year-old female. Alert and oriented. Patient is Anxious. (Jasmin Jackson) Vital Signs 02/17/18 02/18/18 20:10 01:30 Temperature 97.8 F Pulse Rate 119 H 103 H Respiratory 16 18 Rate Blood Pressure 154/86 139/60 O2 Sat by Pulse 94 L 96 Oximetry Medical Decision Making <Jasmin Jackson - Last Filed: 02/21/18 01:31> <Carol Castro P - Last Filed: 02/25/18 03:52> - Medical Decision Making Patient presents emergency room for second time for fleeting suicidal thoughts and anxiety. Patient this time is medically clear for EPS evaluation. EPS evaluated the Patient and states the Patient safer discharge home. Patient has been advised that close follow-up with her primary care physician. Crisis unit [facility]. (Jasmin Jackson) I was available for consultation in the emergency department. The history and physical exam were done by the midlevel provider. I was consulted for this patient's care. I reviewed the case with the midlevel provider and based on their presentation of the patient, I agree with the assessment, medical decision making and plan of care as documented. (Carol Castro) - Lab Data Lab Results 02/17/18 Range/Units 20:38 Urine Opiates Screen Not Detected (NotDetected) Ur Oxycodone Screen Not Detected (NotDetected) Urine Methadone Screen Not Detected (NotDetected) Ur Propoxyphene Screen Not Detected (NotDetected) Ur Barbiturates Screen Not Detected (NotDetected) U Tricyclic Antidepress Not Detected (NotDetected) Ur Phencyclidine Scrn Not Detected (NotDetected) Ur Amphetamines Screen Not Detected (NotDetected) U Methamphetamines Scrn Not Detected (NotDetected) U Benzodiazepines Scrn Detected H (NotDetected) Urine Cocaine Screen Not Detected (NotDetected) U Marijuana (THC) Screen Not Detected (NotDetected) Disposition Is patient prescribed a controlled substance at d/c from ED?: No Time of Disposition: 23:52 <Jasmin Jackson - Last Filed: 02/21/18 01:31> <Carlo Castro - Last Filed: 02/25/18 03:52> Clinical Impression: Anxiety Disposition: HOME SELF-CARE Condition: Good Instructions: Help Prevent Suicide (ED) Additional Instructions: Patient advised to follow-up with primary care physician. Return to emergency department if any alarming signs or symptoms occur. Referrals: Felipa Mesa MD [Primary Care Provider] - 1-2 days
[2018-02-18 01:41] VITALS: BP 139/60; PULSE 103; RESP 18
== END 2018-02-18 01:30 | disposition home or self-care (01) ==
LOC: EC 20:03
DX: F41.0 Panic disorder [episodic paroxysmal anxiety] (principal); R45.851 Suicidal ideations; Z86.14 Personal history of Methicillin resistant Staphylococcus aureus infection; Z79.899 Other long term (current) drug therapy; Z88.8 Allergy status to other drugs, medicaments and biological substances; Z91.030 Bee allergy status; Z91.048 Other nonmedicinal substance allergy status
CPT/HCPCS: 80306; 82075; 99285

== ENCOUNTER 2018-03-04 17:44 | Emergency (ER) | payer OTHER ==
[2018-03-04 17:56] VITALS: TEMP 97.6
[2018-03-04 19:26] LABS: Basophils % (A) 0 %; Eosinophils # (A) 0.2 k/uL (0-0.7); Eosinophils % (A) 3 %; HCT 41.7 % (34.0-46.0); HGB 13.7 gm/dL (11.4-16.0); Lymphocytes # (A) 1.8 k/uL (1.0-4.8); Lymphocytes % (A) 29 %; MCH 27.9 pg (25.0-35.0); MCHC 32.8 g/dL (31.0-37.0); MCV 84.8 fL (80.0-100.0); Mean Platelet Volume 7.4; Monocytes # (A) 0.3 k/uL (0-1.0); Monocytes % (A) 5 %; Neutrophils # (A) 3.8 k/uL (1.3-7.7); Neutrophils % (A) 61 %; Platelet Count 240 k/uL (150-450); RBC 4.91 m/uL (3.80-5.40); RDW 13.6 % (11.5-15.5); WBC 6.2 k/uL (3.8-10.6)
[2018-03-04 19:30] LABS: Amorphous Sediment,Urine Rare /hpf; Appearance,Urine Cloudy (Clear); Bilirubin,Urine Negative (Negative); Blood,Urine Negative (Negative); Color,Urine Yellow; Glucose,Urine (UA) Negative (Negative); Ketones,Urine Negative (Negative); Leukocyte Esterase,Urine Negative (Negative); Mucus,Urine Occasional /hpf; Nitrite,Urine Negative (Negative); Protein,Urine Trace (Negative); RBC,Urine 21 /hpf (0-5); Specific Gravity,Urine 1.025 (1.001-1.035); Squamous Epithelial Cell,Urine 7 /hpf (0-4); Urobilinogen,Urine <2.0 mg/dL (<2.0)
[2018-03-04] MEDS ORDERED: SODIUM CHLORIDE 0.9% 1,000 ML IV STA (19:36)
--- NOTE | 2018-03-04 19:36 | ED ---
General Adult HPI - General Chief complaint: Allergic Reaction Stated complaint: vision trouble Time Seen by Provider: 03/04/18 18:33 Source: patient, RN notes reviewed Mode of arrival: ambulatory Limitations: no limitations - History of Present Illness Initial comments: Patient is a 22-year-old female presenting to the emergency room today with a chief complaint of possible medication reaction. Patient does admit that she was started on Seroquel approximately one month ago. She states she was started on Trileptal approximately 2 weeks ago. She states that since starting the Trileptal she's noticed some blurry vision double vision at times. She states that she is also felt unsteady when she is on her feet at times. States does not always happen. Patient states she is unsure if this is related back to the medication. She states she does not see a psychiatrist for another week and a half and does not feel like she can go that long. She denies any suicidal , homicidal thoughts or plans. Patient denies any other complaints or symptoms. States appetites been well. Patient denies any recent fever, chills, shortness of breath, chest pain, back pain, abdominal pain, nausea or vomiting, numbness or tingling, headaches, or any other complaints. - Related Data Home Medications Medication Instructions Recorded Confirmed Cyclobenzaprine [Flexeril] 10 mg PO TID PRN 02/16/18 02/17/18 PARoxetine [Paxil] 20 mg PO DAILY 02/16/18 02/17/18 LORazepam [Ativan] 1 mg PO ONCE 02/17/18 02/17/18 hydrOXYzine HCL [Atarax] 25 mg PO TID PRN 02/17/18 02/17/18 Previous Rx's Medication Instructions Recorded Ibuprofen [Motrin] 600 mg PO Q6HR PRN #40 day 02/13/18 Allergies Allergy/AdvReac Type Severity Reaction Status Date / Time adhesive tape Allergy Rash/Hives Verified 03/04/18 17:56 prednisone Allergy Swelling Verified 03/04/18 17:56 venom-honey bee Allergy Anaphylaxis Verified 03/04/18 17:56 [bee venom (honey bee)] Review of Systems ROS Statement: Those systems with pertinent positive or pertinent negative responses have been documented in the HPI. ROS Other: All systems not noted in ROS Statement are negative. Past Medical History Past Medical History: Asthma, Hypertension Additional Past Medical History / Comment(s): gestational diabetes History of Any Multi-Drug Resistant Organisms: MRSA Date of last positivie culture/infection: 2014 MDRO Source:: Skin Past Surgical History: Section, Cholecystectomy Past Anesthesia/Blood Transfusion Reactions: Postoperative Nausea & Vomiting ( PONV) Past Psychological History: Anxiety, Panic Disorder Smoking Status: Never smoker Past Alcohol Use History: None Reported Past Drug Use History: None Reported - Past Family History Mother Family Medical History: No Reported History General Exam - General Exam Comments Initial Comments: General: The patient is awake and alert, in no distress, and does not appear acutely ill. Eye: Pupils are equal, round and reactive to light, extra-ocular movements are intact. No nystagmus. There is normal conjunctiva bilaterally. No signs of icterus. Ears, nose, mouth and throat: There are moist mucous membranes and no oral lesions. Neck: The neck is supple, there is no tenderness or JVD. Cardiovascular: There is a regular rate and rhythm. No murmur, rub or gallop is appreciated. Respiratory: Lungs are clear to auscultation, respirations are non-labored, breath sounds are equal. No wheezes, stridor, rales, or rhonchi. Musculoskeletal: Normal ROM, no tenderness. Strength 5/5. Sensation intact. Pulses equal bilaterally 2+. Neurological: A&O x 3. CN II-XII intact, There are no obvious motor or sensory deficits. Coordination appears grossly intact. Speech is normal. Skin: Skin is warm and dry and no rashes or lesions are noted. Psychiatric: Cooperative, appropriate mood & affect, normal judgment. Limitations: no limitations Course Vital Signs 03/04/18 17:52 Temperature 97.6 F Pulse Rate 118 H Respiratory 20 Rate Blood Pressure 141/81 O2 Sat by Pulse 97 Oximetry EKG Findings - EKG Comments: EKG Findings:: EKG performed at 1927: Shows normal sinus rhythm at 94 bpm. IN interval 142. QRS 70. QT/QTc is 342/427. No acute ST changes. Medical Decision Making - Medical Decision Making Patient labs been reviewed are unremarkable. EKG showed normal sinus rhythm. Patient was seen by psychiatric nurse here in the emergency room who did discuss the case with psychiatrist. At this time patient is advised to stop the Trileptal. Advised follow-up the family doctor with her appointment this coming week. Patient states understanding and is in agreement with the plan. Will be discharged home advised return for any other concerns. - Lab Data Result diagrams: 03/04/18 18:56 03/04/18 18:56 Lab Results 03/04/18 03/04/18 12 Range/Units 18:56 18:56 18:56 WBC 6.2 (3.8-10.6) k/uL RBC 4.91 (3.80-5.40) m/uL Hgb 13.7 (11.4-16.0) gm/dL Hct 41.7 (34.0-46.0) % MCV 84.8 (80.0-100.0) fL MCH 27.9 (25.0-35.0) pg MCHC 32.8 (31.0-37.0) g/dL RDW 13.6 (11.5-15.5) % Plt Count 240 (150-450) k/uL Neutrophils % 61 % Lymphocytes % 29 % Monocytes % 5 % Eosinophils % 3 % Basophils % 0 % Neutrophils # 3.8 (1.3-7.7) k/uL Lymphocytes # 1.8 (1.0-4.8) k/uL Monocytes # 0.3 (0-1.0) k/uL Eosinophils # 0.2 (0-0.7) k/uL Basophils # 0.0 (0-0.2) k/uL Sodium 142 (137-145) mmol/L Potassium 4.2 (3.5-5.1) mmol/L Chloride 112 H (98-107) mmol/L Carbon Dioxide 23 (22-30) mmol/L Anion Gap 7 mmol/L BUN 15 (7-17) mg/dL Creatinine 0.68 (0.52-1.04) mg/dL Est GFR (CKD-EPI)AfAm >90 (>60 ml/min/1.73 sqM) Est GFR (CKD-EPI)NonAf >90 (>60 ml/min/1.73 sqM) Glucose 109 H (74-99) mg/dL Calcium 9.7 (8.4-10.2) mg/dL Total Bilirubin 0.4 (0.2-1.3) mg/dL AST 23 (14-36) U/L ALT 23 (9-52) U/L Alkaline Phosphatase 67 (38-126) U/L Total Protein 7.0 (6.3-8.2) g/dL Albumin 4.2 (3.5-5.0) g/dL Urine Color Yellow Urine Appearance Cloudy H (Clear) Urine pH 6.0 (5.0-8.0) Ur Specific [place] 1.025 (1.001-1.035) Urine Protein Trace H (Negative) Urine Glucose (UA) Negative (Negative) Urine Ketones Negative (Negative) Urine Blood Negative (Negative) Urine Nitrite Negative (Negative) Urine Bilirubin Negative (Negative) Urine Urobilinogen <2.0 (<2.0) mg/dL Ur Leukocyte Esterase Negative (Negative) Urine RBC 21 H (0-5) /hpf Urine WBC 3 (0-5) /hpf Ur Squamous Epith Cells 7 H (0-4) /hpf Amorphous Sediment Rare H (None) /hpf Urine Mucus Occasional H (None) /hpf Urine HCG, Qual (Not Detectd) Urine Opiates Screen Not Detected (NotDetected) Ur Oxycodone Screen Not Detected (NotDetected) Urine Methadone Screen Not Detected (NotDetected) Ur Propoxyphene Screen Not Detected (NotDetected) Ur Barbiturates Screen Not Detected (NotDetected) U Tricyclic Antidepress Detected H (NotDetected) Ur Phencyclidine Scrn Not Detected (NotDetected) Ur Amphetamines Screen Not Detected (NotDetected) U Methamphetamines Scrn Not Detected (NotDetected) U Benzodiazepines Scrn Not Detected (NotDetected) Urine Cocaine Screen Not Detected (NotDetected) U Marijuana (THC) Screen Not Detected (NotDetected) 03/04/18 Range/Units 18:56 WBC (3.8-10.6) k/uL RBC (3.80-5.40) m/uL Hgb (11.4-16.0) gm/dL Hct (34.0-46.0) % MCV (80.0-100.0) fL MCH (25.0-35.0) pg MCHC (31.0-37.0) g/dL RDW (11.5-15.5) % Plt Count (150-450) k/uL Neutrophils % % Lymphocytes % % Monocytes % % Eosinophils % % Basophils % % Neutrophils # (1.3-7.7) k/uL Lymphocytes # (1.0-4.8) k/uL Monocytes # (0-1.0) k/uL Eosinophils # (0-0.7) k/uL Basophils # (0-0.2) k/uL Sodium (137-145) mmol/L Potassium (3.5-5.1) mmol/L Chloride (98-107) mmol/L Carbon Dioxide (22-30) mmol/L Anion Gap mmol/L BUN (7-17) mg/dL Creatinine (0.52-1.04) mg/dL Est GFR (CKD-EPI)AfAm (>60 ml/min/1.73 sqM) Est GFR (CKD-EPI)NonAf (>60 ml/min/1.73 sqM) Glucose (74-99) mg/dL Calcium (8.4-10.2) mg/dL Total Bilirubin (0.2-1.3) mg/dL AST (14-36) U/L ALT (9-52) U/L Alkaline Phosphatase (38-126) U/L Total Protein (6.3-8.2) g/dL Albumin (3.5-5.0) g/dL Urine Color Urine Appearance (Clear) Urine pH (5.0-8.0) Ur Specific [place] (1.001-1.035) Urine Protein (Negative) Urine Glucose (UA) (Negative) Urine Ketones (Negative) Urine Blood (Negative) Urine Nitrite (Negative) Urine Bilirubin (Negative) Urine Urobilinogen (<2.0) mg/dL Ur Leukocyte Esterase (Negative) Urine RBC (0-5) /hpf Urine WBC (0-5) /hpf Ur Squamous Epith Cells (0-4) /hpf Amorphous Sediment (None) /hpf Urine Mucus (None) /hpf Urine HCG, Qual Not Detected (Not Detectd) Urine Opiates Screen (NotDetected) Ur Oxycodone Screen (NotDetected) Urine Methadone Screen (NotDetected) Ur Propoxyphene Screen (NotDetected) Ur Barbiturates Screen (NotDetected) U Tricyclic Antidepress (NotDetected) Ur Phencyclidine Scrn (NotDetected) Ur Amphetamines Screen (NotDetected) U Methamphetamines Scrn (NotDetected) U Benzodiazepines Scrn (NotDetected) Urine Cocaine Screen (NotDetected) U Marijuana (THC) Screen (NotDetected) Disposition Clinical Impression: Dizziness Disposition: HOME SELF-CARE Condition: Good Instructions: Adverse Drug Reaction (ED) Additional Instructions: Please stop the Trileptal as discussed and follow-up family doctor with your appointment. Please return here to the emergency room for any other concerns. Is patient prescribed a controlled substance at d/c from ED?: No Referrals: Felipa Mesa MD [Primary Care Provider] - 1-2 days Time of Disposition: 00:26
[2018-03-04 19:37] LABS: Amphetamine Screen,Urine Not Detected (NotDetected); Barbiturate Screen,Urine Not Detected (NotDetected); Benzodiazepines Screen,Urine Not Detected (NotDetected); Cocaine Screen,Urine Not Detected (NotDetected); Methadone Screen, Urine Not Detected (NotDetected); Opiate Screen,Urine Not Detected (NotDetected); Oxycodone Screen, Urine Not Detected (NotDetected); Phencyclidine Screen,Urine Not Detected (NotDetected); Tricyclic Antidepressant,Urine Detected (NotDetected); Urn Cannabinoid Scrn Not Detected (NotDetected)
[2018-03-04 19:38] LABS: ALT 23 U/L (9-52); AST 23 U/L (14-36); Albumin 4.2 g/dL (3.5-5.0); Alkaline Phosphatase 67 U/L (38-126); Anion Gap 7 mmol/L; Blood Urea Nitrogen 15 mg/dL (7-17); Calcium 9.7 mg/dL (8.4-10.2); Carbon Dioxide 23 mmol/L (22-30); Chloride 112 mmol/L (98-107); Glucose 109 mg/dL (74-99); Potassium 4.2 mmol/L (3.5-5.1); Sodium 142 mmol/L (137-145); Total Bilirubin 0.4 mg/dL (0.2-1.3)
[2018-03-05 01:11] VITALS: BP 135/95; PULSE 100; RESP 18
== END 2018-03-05 00:37 | disposition home or self-care (01) ==
LOC: EC 17:44
DX: R42 Dizziness and giddiness (principal); H53.2 Diplopia; H53.8 Other visual disturbances; F41.0 Panic disorder [episodic paroxysmal anxiety]; Z88.8 Allergy status to other drugs, medicaments and biological substances; Z91.030 Bee allergy status; Z91.048 Other nonmedicinal substance allergy status; Z79.899 Other long term (current) drug therapy; Z86.14 Personal history of Methicillin resistant Staphylococcus aureus infection
CPT/HCPCS: 36415; 80053; 80306; 81001; 81025; 85025; 93005; 96360; 99284

== ENCOUNTER 2018-03-15 13:07 | Emergency (ER) | payer OTHER ==
[2018-03-15 13:15] VITALS: RESP 18
[2018-03-15] MEDS ORDERED: ACETAMINOPHEN TAB 500 MG TAB PO STA (13:44)
[2018-03-15] MEDS ORDERED: SODIUM CHLORIDE 0.9% 1,000 ML IV STA (13:44)
--- NOTE | 2018-03-15 14:30 | XR ---
EXAMINATION TYPE: XR chest 2V DATE OF EXAM: 03/15/2018 COMPARISON: 02/13/2018 HISTORY: 23 year-old female chest pain, dysrhythmia TECHNIQUE: PA and lateral views FINDINGS: Heart upper limits of normal in size. Hazy density at the cardiac apex suggesting epicardial fat pad. Aorta and pulmonary vasculature within normal limits. No consolidation or pleural effusion. IMPRESSION: Borderline heart size. No definite acute process.
[2018-03-15 14:41] LABS: ALT 32 U/L (9-52); AST 22 U/L (14-36); Albumin 3.6 g/dL (3.5-5.0); Alkaline Phosphatase 68 U/L (38-126); Anion Gap 8 mmol/L; Blood Urea Nitrogen 8 mg/dL (7-17); Carbon Dioxide 23 mmol/L (22-30); Chloride 109 mmol/L (98-107); Glucose 207 mg/dL (74-99); Magnesium 1.7 mg/dL (1.6-2.3); Potassium 3.9 mmol/L (3.5-5.1); Sodium 140 mmol/L (137-145); Total Bilirubin 0.3 mg/dL (0.2-1.3); Total Protein 6.1 g/dL (6.3-8.2)
[2018-03-15 14:43] LABS: Basophils % (A) 0 %; Eosinophils # (A) 0.1 k/uL (0-0.7); Eosinophils % (A) 2 %; HCT 37.8 % (34.0-46.0); HGB 12.8 gm/dL (11.4-16.0); Lymphocytes % (A) 25 %; MCH 28.8 pg (25.0-35.0); MCHC 33.9 g/dL (31.0-37.0); MCV 85.1 fL (80.0-100.0); Mean Platelet Volume 7.7; Monocytes # (A) 0.3 k/uL (0-1.0); Monocytes % (A) 6 %; Neutrophils # (A) 2.6 k/uL (1.3-7.7); Neutrophils % (A) 64 %; Platelet Count 191 k/uL (150-450); RBC 4.44 m/uL (3.80-5.40); RDW 13.5 % (11.5-15.5)
--- NOTE | 2018-03-15 14:45 | ED ---
Arrhythmia/Palpitations HPI - General Chief Complaint: Arrhythmia/Palpitations Stated Complaint: Rapid heart beat, chest pain Time Seen by Provider: 03/15/18 13:24 Source: patient, RN notes reviewed Mode of arrival: wheelchair Limitations: no limitations - History of Present Illness Initial Comments: This a 23-year-old female presents emergency Department chief complaint of heart racing, palpitations and body aches. Patient states that she's had ongoing palpitations she's also been referred to a manager competitive intelligence but has not seen a manager competitive intelligence. Patient admits to cough that has started 1 day ago. Patient went of body aches diffusely denies any sore throat, headache, dizziness , nausea, vomiting diarrhea constipation. Patient does have some intermittent shortness breath. Patient has no history of hyperthyroidism - Related Data Home Medications Medication Instructions Recorded Confirmed QUEtiapine FUMARATE [SEROquel] 200 mg PO HS 03/15/18 03/15/18 Previous Rx's Medication Instructions Recorded Oseltamivir [Tamiflu] 75 mg PO Q12HR #10 cap 03/15/18 Allergies Allergy/AdvReac Type Severity Reaction Status Date / Time adhesive tape Allergy Rash/Hives Verified 03/15/18 13:31 prednisone Allergy Swelling Verified 03/15/18 13:31 venom-honey bee Allergy Anaphylaxis Verified 03/15/18 13:31 [bee venom (honey bee)] Review of Systems ROS Statement: Those systems with pertinent positive or pertinent negative responses have been documented in the HPI. ROS Other: All systems not noted in ROS Statement are negative. Past Medical History Past Medical History: Asthma, Hypertension Additional Past Medical History / Comment(s): gestational diabetes History of Any Multi-Drug Resistant Organisms: MRSA Date of last positivie culture/infection: 2014 MDRO Source:: Skin Past Surgical History: Section, Cholecystectomy Past Anesthesia/Blood Transfusion Reactions: Postoperative Nausea & Vomiting ( PONV) Past Psychological History: Anxiety, Bipolar, Panic Disorder Smoking Status: Never smoker Past Alcohol Use History: None Reported Past Drug Use History: None Reported - Past Family History Mother Family Medical History: No Reported History General Exam Limitations: no limitations General appearance: alert, in no apparent distress Head exam: Present: atraumatic, normocephalic, normal inspection Eye exam: Present: normal appearance, PERRL, EOMI. Absent: scleral icterus, conjunctival injection, periorbital swelling ENT exam: Present: normal exam, normal oropharynx, mucous membranes moist, TM's normal bilaterally, normal external ear exam Neck exam: Present: normal inspection, full ROM. Absent: tenderness, meningismus, lymphadenopathy Respiratory exam: Present: normal lung sounds bilaterally. Absent: respiratory distress, wheezes, rales, rhonchi, stridor Cardiovascular Exam: Present: normal rhythm, tachycardia, normal heart sounds. Absent: systolic murmur, diastolic murmur, rubs, gallop, clicks GI/Abdominal exam: Present: soft, normal bowel sounds. Absent: distended, tenderness, guarding, rebound, rigid Skin exam: Present: warm, dry, intact, normal color. Absent: rash Course Vital Signs 03/15/18 03/15/18 03/15/18 13:11 14:30 15:00 Temperature 99.7 F H 98.6 F Pulse Rate 115 H 107 H 92 Respiratory 18 18 18 Rate Blood Pressure 137/84 167/75 126/83 O2 Sat by Pulse 98 99 100 Oximetry EKG Findings - EKG Comments: EKG Findings:: EKG performed at 14:04 normal sinus rhythm with a rate of 97 NE 148 QRS 68 QT/QTC 354/[address] elevation or depression, normal axis normal intervals Medical Decision Making - Medical Decision Making 23-year-old female presented for palpitations, cough. Patient's found to have influenza A. Patient symptoms that started within last 24 hours will be started on antivirals. CT of the chest was obtained secondary to elevated d- dimer which is negative for PE. Patient otherwise had normal lab work. She will be discharged) follow-up with primary care physician and cardiology as she' s been scheduled see for ongoing palpitations. - Lab Data Result diagrams: 03/15/18 13:52 03/15/18 13:52 Lab Results 03/15/18 03/15/18 03/15/18 Range/Units 13:52 13:52 13:52 WBC 4.0 (3.8-10.6) k/uL RBC 4.44 (3.80-5.40) m/uL Hgb 12.8 (11.4-16.0) gm/dL Hct 37.8 (34.0-46.0) % MCV 85.1 (80.0-100.0) fL MCH 28.8 (25.0-35.0) pg MCHC 33.9 (31.0-37.0) g/dL RDW 13.5 (11.5-15.5) % Plt Count 191 (150-450) k/uL Neutrophils % 64 % Lymphocytes % 25 % Monocytes % 6 % Eosinophils % 2 % Basophils % 0 % Neutrophils # 2.6 (1.3-7.7) k/uL Lymphocytes # 1.0 (1.0-4.8) k/uL Monocytes # 0.3 (0-1.0) k/uL Eosinophils # 0.1 (0-0.7) k/uL Basophils # 0.0 (0-0.2) k/uL D-Dimer 0.63 H (<0.60) mg/L FEU Sodium 140 (137-145) mmol/L Potassium 3.9 (3.5-5.1) mmol/L Chloride 109 H (98-107) mmol/L Carbon Dioxide 23 (22-30) mmol/L Anion Gap 8 mmol/L BUN 8 (7-17) mg/dL Creatinine 0.65 (0.52-1.04) mg/dL Est GFR (CKD-EPI)AfAm >90 (>60 ml/min/1.73 sqM) Est GFR (CKD-EPI)NonAf >90 (>60 ml/min/1.73 sqM) Glucose 207 H (74-99) mg/dL Calcium 9.0 (8.4-10.2) mg/dL Magnesium 1.7 (1.6-2.3) mg/dL Total Bilirubin 0.3 (0.2-1.3) mg/dL AST 22 (14-36) U/L ALT 32 (9-52) U/L Alkaline Phosphatase 68 (38-126) U/L Troponin I (0.000-0.034) ng/mL Total Protein 6.1 L (6.3-8.2) g/dL Albumin 3.6 (3.5-5.0) g/dL TSH 1.480 (0.465-4.680) mIU/L Influenza Type A RNA (Not Detectd) Influenza Type B (PCR) (Not Detectd) 03/15/18 03/15/18 Range/Units 13:52 13:52 WBC (3.8-10.6) k/uL RBC (3.80-5.40) m/uL Hgb (11.4-16.0) gm/dL Hct (34.0-46.0) % MCV (80.0-100.0) fL MCH (25.0-35.0) pg MCHC (31.0-37.0) g/dL RDW (11.5-15.5) % Plt Count (150-450) k/uL Neutrophils % % Lymphocytes % % Monocytes % % Eosinophils % % Basophils % % Neutrophils # (1.3-7.7) k/uL Lymphocytes # (1.0-4.8) k/uL Monocytes # (0-1.0) k/uL Eosinophils # (0-0.7) k/uL Basophils # (0-0.2) k/uL D-Dimer (<0.60) mg/L FEU Sodium (137-145) mmol/L Potassium (3.5-5.1) mmol/L Chloride (98-107) mmol/L Carbon Dioxide (22-30) mmol/L Anion Gap mmol/L BUN (7-17) mg/dL Creatinine (0.52-1.04) mg/dL Est GFR (CKD-EPI)AfAm (>60 ml/min/1.73 sqM) Est GFR (CKD-EPI)NonAf (>60 ml/min/1.73 sqM) Glucose (74-99) mg/dL Calcium (8.4-10.2) mg/dL Magnesium (1.6-2.3) mg/dL Total Bilirubin (0.2-1.3) mg/dL AST (14-36) U/L ALT (9-52) U/L Alkaline Phosphatase (38-126) U/L Troponin I <0.012 (0.000-0.034) ng/mL Total Protein (6.3-8.2) g/dL Albumin (3.5-5.0) g/dL TSH (0.465-4.680) mIU/L Influenza Type A RNA Detected H (Not Detectd) Influenza Type B (PCR) Not Detected (Not Detectd) Disposition Clinical Impression: Palpitations, Anxiety, Influenza Disposition: HOME SELF-CARE Condition: Stable Instructions: Heart Palpitations (ED), Influenza (ED) Additional Instructions: Please return to the Emergency Department if symptoms worsen or any other concerns. Prescriptions: Oseltamivir [Tamiflu] 75 mg PO Q12HR #10 cap Is patient prescribed a controlled substance at d/c from ED?: No Referrals: Felipa Mesa MD [Primary Care Provider] - 1-2 days Time of Disposition: 16:15
[2018-03-15 15:09] VITALS: TEMP 98.6
--- NOTE | 2018-03-15 16:10 | CT ---
CT CHEST FOR PULMONARY EMBOLISM. EXAMINATION TYPE: CT chest angio for PE DATE OF EXAM: 03/15/2018 INDICATION: Chest pressure CT DLP: 665.7 mGycm, Automated exposure control for dose reduction was used. CONTRAST: Patient injected with 100 mL of Isovue 370. COMPARISON: None TECHNIQUE: CT of the chest is performed on a spiral scan at 2 mm thick sections. Study is performed with intravenous contrast timed for evaluation for pulmonary embolism. This will limit additional po rtions of the evaluation. 3-D MIP images reconstructed by the technologist are reviewed on the compu ter in the coronal and sagittal planes. FINDINGS: No persistent filling defects are evident to suggest an acute pulmonary embolism. No mediastinal or hilar adenopathy enlarged by CT criteria is evident. The ascending aorta diameter at the level of the main pulmonary artery is 3.0 cm. The main pulmonary artery diameter at the bifur cation is 2.7 cm. Lung windows are clear. Limited CT section through the upper abdomen are unremarkable. IMPRESSIONS: 1. No acute pulmonary embolism.
[2018-03-15 16:21] VITALS: BP 128/78; PULSE 98
== END 2018-03-15 16:28 | disposition home or self-care (01) ==
LOC: EC 13:07
DX: J10.1 Influenza due to other identified influenza virus with other respiratory manifestations (principal); F41.9 Anxiety disorder, unspecified; R00.2 Palpitations; R79.1 Abnormal coagulation profile; F31.9 Bipolar disorder, unspecified; Z88.8 Allergy status to other drugs, medicaments and biological substances; Z91.030 Bee allergy status; Z91.048 Other nonmedicinal substance allergy status; Z79.899 Other long term (current) drug therapy; Z86.14 Personal history of Methicillin resistant Staphylococcus aureus infection
CPT/HCPCS: 36415; 93005; 85379; 80053; 84443; 83735; 84484; 85025; 87502; 71046; 71275; 99285; 96360; Q9967

== ENCOUNTER 2018-07-06 19:25 | Emergency (ER) | payer OTHER ==
[2018-07-06] MEDS ORDERED: SODIUM CHLORIDE 0.9% 1,000 ML IV STA (20:22)
[2018-07-06] MEDS ORDERED: ONDANSETRON 4 MG/2 ML VIAL IVP STA (20:22)
--- NOTE | 2018-07-06 20:25 | ED ---
Weakness HPI - General Chief complaint: Chest Pain Stated complaint: Vomiting Time Seen by Provider: 07/06/18 19:45 Source: patient, RN notes reviewed, old records reviewed Mode of arrival: wheelchair Limitations: no limitations - History of Present Illness Initial comments: This is a 23-year-old female the ER for evaluation. She presents today for evelia luation multiple complaints nausea and vomiting. Chest pain and abdominal pain. Patient is history of gallbladder surgery, patient has no diarrhea no fevers. No significant history of similar, complaints. No recent travel history no sick contacts. MD Complaint: generalized weakness, lack of energy (Nausea vomiting chest pain and abdominal pain) -: hour(s) Location: generalized Severity: moderate Severity scale (1-10): 5 Quality: aching Consistency: constant Improves with: none Worsens with: none Context: recent illness Associated Symptoms: chest pain, fever/chills, loss of appetite, nausea/vomiting - Related Data Previous Rx's Medication Instructions Recorded Ibuprofen [Motrin] 600 mg PO Q8HR PRN #30 tab 03/15/18 Allergies Allergy/AdvReac Type Severity Reaction Status Date / Time adhesive tape Allergy Rash/Hives Verified 07/06/18 20:21 prednisone Allergy Swelling Verified 07/06/18 20:21 venom-honey bee Allergy Anaphylaxis Verified 07/06/18 20:21 [bee venom (honey bee)] Review of Systems ROS Statement: Those systems with pertinent positive or pertinent negative responses have been documented in the HPI. ROS Other: All systems not noted in ROS Statement are negative. Past Medical History Past Medical History: Asthma, Hypertension Additional Past Medical History / Comment(s): gestational diabetes History of Any Multi-Drug Resistant Organisms: MRSA Date of last positivie culture/infection: 2014 MDRO Source:: Skin Past Surgical History: Section, Cholecystectomy Past Anesthesia/Blood Transfusion Reactions: Postoperative Nausea & Vomiting (PONV) Past Psychological History: Anxiety, Bipolar, Panic Disorder Smoking Status: Never smoker Past Alcohol Use History: None Reported Past Drug Use History: None Reported - Past Family History Mother Family Medical History: No Reported History General Exam Limitations: no limitations General appearance: alert, in no apparent distress, obese Head exam: Present: atraumatic, normocephalic, normal inspection Eye exam: Present: normal appearance, PERRL, EOMI. Absent: scleral icterus, conjunctival injection, periorbital swelling ENT exam: Present: normal exam, mucous membranes moist Neck exam: Present: normal inspection. Absent: tenderness, meningismus, lymphadenopathy Respiratory exam: Present: normal lung sounds bilaterally. Absent: respiratory distress, wheezes, rales, rhonchi, stridor Cardiovascular Exam: Present: regular rate, normal rhythm, normal heart sounds. Absent: systolic murmur, diastolic murmur, rubs, gallop, clicks GI/Abdominal exam: Present: soft, normal bowel sounds. Absent: distended, tenderness, guarding, rebound, rigid Extremities exam: Present: normal inspection, full ROM, normal capillary refill. Absent: tenderness, pedal edema, joint swelling, calf tenderness Back exam: Present: normal inspection Neurological exam: Present: alert, oriented X3, CN II-XII intact Psychiatric exam: Present: normal affect, normal mood Skin exam: Present: warm, dry, intact, normal color. Absent: rash Course Vital Signs 07/06/18 19:39 Temperature 98.3 F Pulse Rate 80 Respiratory 18 Rate Blood Pressure 137/89 O2 Sat by Pulse 97 Oximetry - Reevaluation(s) Reevaluation #1: 07/06/18 21:40 Record reviewed Reevaluation #2: 07/06/18 21:40 Symptoms are improved Reevaluation #3: 07/06/18 22:32 NO Active nausea and vomiting EKG Findings - EKG Comments: EKG Findings:: EKG shows normal sinus rhythm rate 90, NE 150, QRS 72, QTc 459 Medical Decision Making - Medical Decision Making 23 female the ER for evaluation of bowel pain positive abdominal pain and chest pain which are improved no significant nausea vomiting currently. Patient can be discharged home - Lab Data Result diagrams: 07/06/18 20:15 07/06/18 20:15 Lab Results 07/06/18 07/06/18 07/06/18 Range/Units 20:15 20:15 20:15 WBC 7.3 (3.8-10.6) k/uL RBC 4.95 (3.80-5.40) m/uL Hgb 13.8 (11.4-16.0) gm/dL Hct 41.6 (34.0-46.0) % MCV 84.1 (80.0-100.0) fL MCH 27.8 (25.0-35.0) pg MCHC 33.1 (31.0-37.0) g/dL RDW 14.1 (11.5-15.5) % Plt Count 249 (150-450) k/uL Neutrophils % 85 % Lymphocytes % 9 % Monocytes % 4 % Eosinophils % 1 % Basophils % 0 % Neutrophils # 6.2 (1.3-7.7) k/uL Lymphocytes # 0.7 L (1.0-4.8) k/uL Monocytes # 0.3 (0-1.0) k/uL Eosinophils # 0.1 (0-0.7) k/uL Basophils # 0.0 (0-0.2) k/uL Poikilocytosis Slight D-Dimer 0.28 (<0.60) mg/L FEU Sodium 141 (137-145) mmol/L Potassium 3.7 (3.5-5.1) mmol/L Chloride 108 H (98-107) mmol/L Carbon Dioxide 24 (22-30) mmol/L Anion Gap 9 mmol/L BUN 13 (7-17) mg/dL Creatinine 0.71 (0.52-1.04) mg/dL Est GFR (CKD-EPI)AfAm >90 (>60 ml/min/1.73 sqM) Est GFR (CKD-EPI)NonAf >90 (>60 ml/min/1.73 sqM) Glucose 139 H (74-99) mg/dL Plasma Lactic Acid Scooby (0.7-2.0) mmol/L Calcium 9.2 (8.4-10.2) mg/dL Phosphorus 2.3 L (2.5-4.5) mg/dL Magnesium 1.7 (1.6-2.3) mg/dL Total Bilirubin 0.7 (0.2-1.3) mg/dL AST 32 (14-36) U/L ALT 39 (9-52) U/L Alkaline Phosphatase 86 (38-126) U/L Troponin I (0.000-0.034) ng/mL NT-Pro-B Natriuret Pep pg/mL Total Protein 6.5 (6.3-8.2) g/dL Albumin 4.1 (3.5-5.0) g/dL Urine Color Urine Appearance (Clear) Urine pH (5.0-8.0) Ur Specific [place] (1.001-1.035) Urine Protein (Negative) Urine Glucose (UA) (Negative) Urine Ketones (Negative) Urine Blood (Negative) Urine Nitrite (Negative) Urine Bilirubin (Negative) Urine Urobilinogen (<2.0) mg/dL Ur Leukocyte Esterase (Negative) Urine RBC (0-5) /hpf Urine WBC (0-5) /hpf Ur Squamous Epith Cells (0-4) /hpf Hyaline Casts (0-2) /lpf Urine Mucus (None) /hpf 07/06/18 07/06/18 07/06/18 Range/Units 20:15 20:15 20:15 WBC (3.8-10.6) k/uL RBC (3.80-5.40) m/uL Hgb (11.4-16.0) gm/dL Hct (34.0-46.0) % MCV (80.0-100.0) fL MCH (25.0-35.0) pg MCHC (31.0-37.0) g/dL RDW (11.5-15.5) % Plt Count (150-450) k/uL Neutrophils % % Lymphocytes % % Monocytes % % Eosinophils % % Basophils % % Neutrophils # (1.3-7.7) k/uL Lymphocytes # (1.0-4.8) k/uL Monocytes # (0-1.0) k/uL Eosinophils # (0-0.7) k/uL Basophils # (0-0.2) k/uL Poikilocytosis D-Dimer (<0.60) mg/L FEU Sodium (137-145) mmol/L Potassium (3.5-5.1) mmol/L Chloride (98-107) mmol/L Carbon Dioxide (22-30) mmol/L Anion Gap mmol/L BUN (7-17) mg/dL Creatinine (0.52-1.04) mg/dL Est GFR (CKD-EPI)AfAm (>60 ml/min/1.73 sqM) Est GFR (CKD-EPI)NonAf (>60 ml/min/1.73 sqM) Glucose (74-99) mg/dL Plasma Lactic Acid Scooby 1.3 (0.7-2.0) mmol/L Calcium (8.4-10.2) mg/dL Phosphorus (2.5-4.5) mg/dL Magnesium (1.6-2.3) mg/dL Total Bilirubin (0.2-1.3) mg/dL AST (14-36) U/L ALT (9-52) U/L Alkaline Phosphatase (38-126) U/L Troponin I <0.012 (0.000-0.034) ng/mL NT-Pro-B Natriuret Pep 35 pg/mL Total Protein (6.3-8.2) g/dL Albumin (3.5-5.0) g/dL Urine Color Urine Appearance (Clear) Urine pH (5.0-8.0) Ur Specific [place] (1.001-1.035) Urine Protein (Negative) Urine Glucose (UA) (Negative) Urine Ketones (Negative) Urine Blood (Negative) Urine Nitrite (Negative) Urine Bilirubin (Negative) Urine Urobilinogen (<2.0) mg/dL Ur Leukocyte Esterase (Negative) Urine RBC (0-5) /hpf Urine WBC (0-5) /hpf Ur Squamous Epith Cells (0-4) /hpf Hyaline Casts (0-2) /lpf Urine Mucus (None) /hpf 07/06/18 Range/Units 20:15 WBC (3.8-10.6) k/uL RBC (3.80-5.40) m/uL Hgb (11.4-16.0) gm/dL Hct (34.0-46.0) % MCV (80.0-100.0) fL MCH (25.0-35.0) pg MCHC (31.0-37.0) g/dL RDW (11.5-15.5) % Plt Count (150-450) k/uL Neutrophils % % Lymphocytes % % Monocytes % % Eosinophils % % Basophils % % Neutrophils # (1.3-7.7) k/uL Lymphocytes # (1.0-4.8) k/uL Monocytes # (0-1.0) k/uL Eosinophils # (0-0.7) k/uL Basophils # (0-0.2) k/uL Poikilocytosis D-Dimer (<0.60) mg/L FEU Sodium (137-145) mmol/L Potassium (3.5-5.1) mmol/L Chloride (98-107) mmol/L Carbon Dioxide (22-30) mmol/L Anion Gap mmol/L BUN (7-17) mg/dL Creatinine (0.52-1.04) mg/dL Est GFR (CKD-EPI)AfAm (>60 ml/min/1.73 sqM) Est GFR (CKD-EPI)NonAf (>60 ml/min/1.73 sqM) Glucose (74-99) mg/dL Plasma Lactic Acid Scooby (0.7-2.0) mmol/L Calcium (8.4-10.2) mg/dL Phosphorus (2.5-4.5) mg/dL Magnesium (1.6-2.3) mg/dL Total Bilirubin (0.2-1.3) mg/dL AST (14-36) U/L ALT (9-52) U/L Alkaline Phosphatase (38-126) U/L Troponin I (0.000-0.034) ng/mL NT-Pro-B Natriuret Pep pg/mL Total Protein (6.3-8.2) g/dL Albumin (3.5-5.0) g/dL Urine Color Yellow Urine Appearance Cloudy H (Clear) Urine pH 5.5 (5.0-8.0) Ur Specific [place] 1.018 (1.001-1.035) Urine Protein Trace H (Negative) Urine Glucose (UA) Negative (Negative) Urine Ketones Trace H (Negative) Urine Blood Negative (Negative) Urine Nitrite Negative (Negative) Urine Bilirubin Negative (Negative) Urine Urobilinogen <2.0 (<2.0) mg/dL Ur Leukocyte Esterase Negative (Negative) Urine RBC 1 (0-5) /hpf Urine WBC 1 (0-5) /hpf Ur Squamous Epith Cells 14 H (0-4) /hpf Hyaline Casts 1 (0-2) /lpf Urine Mucus Occasional H (None) /hpf - Radiology Data Radiology results: report reviewed (CTA chest abdomen and pelvis negative for acute disease), image reviewed Disposition Clinical Impression: Chest pain, Atypical chest pain, Abdominal pain Disposition: HOME SELF-CARE Condition: Good Instructions (If sedation given, give patient instructions): Abdominal Pain (ED), Chest Pain (ED) Is patient prescribed a controlled substance at d/c from ED?: No Referrals: Felipa Mesa MD [Primary Care Provider] - 1-2 days
[2018-07-06 20:52] LABS: Basophils % (A) 0 %; Eosinophils # (A) 0.1 k/uL (0-0.7); Eosinophils % (A) 1 %; HCT 41.6 % (34.0-46.0); HGB 13.8 gm/dL (11.4-16.0); Lymphocytes # (A) 0.7 k/uL (1.0-4.8); Lymphocytes % (A) 9 %; MCH 27.8 pg (25.0-35.0); MCHC 33.1 g/dL (31.0-37.0); MCV 84.1 fL (80.0-100.0); Mean Platelet Volume 8.1; Monocytes # (A) 0.3 k/uL (0-1.0); Monocytes % (A) 4 %; Neutrophils # (A) 6.2 k/uL (1.3-7.7); Neutrophils % (A) 85 %; Platelet Count 249 k/uL (150-450); Poikilocytosis Slight; RBC 4.95 m/uL (3.80-5.40); RDW 14.1 % (11.5-15.5); WBC 7.3 k/uL (3.8-10.6)
--- NOTE | 2018-07-06 20:58 | XR ---
EXAMINATION: XR chest 2V DATE AND TIME: 07/06/2018 8:51 PM CLINICAL INDICATION: PHH; Weakness TECHNIQUE: Departmental protocol COMPARISON: 03/15/2018 FINDINGS: The lungs are clear. The pleural spaces are negative. The cardiac silhouette is not enlarged. The remainder of the mediastinal silhouette is unremarkable. The skeletal structures and soft tissues are negative for acute findings. IMPRESSION: NO ACUTE PROCESS.
[2018-07-06 21:12] LABS: ALT 39 U/L (9-52); AST 32 U/L (14-36); Albumin 4.1 g/dL (3.5-5.0); Alkaline Phosphatase 86 U/L (38-126); Anion Gap 9 mmol/L; Blood Urea Nitrogen 13 mg/dL (7-17); Calcium 9.2 mg/dL (8.4-10.2); Carbon Dioxide 24 mmol/L (22-30); Chloride 108 mmol/L (98-107); Glucose 139 mg/dL (74-99); Magnesium 1.7 mg/dL (1.6-2.3); Phosphorus 2.3 mg/dL (2.5-4.5); Potassium 3.7 mmol/L (3.5-5.1); Sodium 141 mmol/L (137-145); Total Bilirubin 0.7 mg/dL (0.2-1.3); Total Protein 6.5 g/dL (6.3-8.2)
[2018-07-06 21:24] LABS: Appearance,Urine Cloudy (Clear); Bilirubin,Urine Negative (Negative); Blood,Urine Negative (Negative); Color,Urine Yellow; Glucose,Urine (UA) Negative (Negative); Hyaline Casts,Urine 1 /lpf (0-2); Ketones,Urine Trace (Negative); Leukocyte Esterase,Urine Negative (Negative); Mucus,Urine Occasional /hpf; Nitrite,Urine Negative (Negative); PH, Urine 5.5 (5.0-8.0); Protein,Urine Trace (Negative); RBC,Urine 1 /hpf (0-5); Specific Gravity,Urine 1.018 (1.001-1.035); Squamous Epithelial Cell,Urine 14 /hpf (0-4); Urobilinogen,Urine <2.0 mg/dL (<2.0); WBC,Urine 1 /hpf (0-5)
--- NOTE | 2018-07-06 22:21 | CT ---
EXAM: CT Abdomen and Pelvis With Intravenous Contrast CLINICAL HISTORY: ITS.REASON CT Reason: Pain TECHNIQUE: Axial computed tomography images of the abdomen and pelvis with intravenous contrast. CTDI is 45.9 mGy and DLP is 2061.4 mGy-cm. This CT exam was performed using one or more of the following dose reduction techniques: automated exposure control, adjustment of the mA and/or kV according to patient size, and/or use of iterative reconstruction technique. COMPARISON: No relevant prior studies available. FINDINGS: Lung bases: Unremarkable. No mass. No consolidation. ABDOMEN: Liver: Probable mild parenchymal steatosis. No mass. Gallbladder and bile ducts: Cholecystectomy Pancreas: Unremarkable. No mass. No ductal dilation. Spleen: Splenomegaly. Adrenals: Unremarkable. No mass. Kidneys and ureters: 8mm upper pole left renal hypodensity is too small to characterize, but most likely a cyst. The same applies to a 4 mm mid zone right renal hypodensity. No hydronephrosis. Stomach and bowel: No obstruction or perforation. PELVIS: Appendix: Suspect a normal appendix, but somewhat limited assessment due to motion. Bladder: Unremarkable. No mass. Reproductive: Unremarkable as visualized. ABDOMEN and PELVIS: Intraperitoneal space: Unremarkable. No free air. No significant fluid collection. Bones/joints: No acute fracture. No dislocation. Soft tissues: Small fatty umbilical hernia. Vasculature: Unremarkable. No abdominal aortic aneurysm. Lymph nodes: Unremarkable. No enlarged lymph nodes. IMPRESSION: No clear explanation for abdominal pain. Renal hypodensities are too small to characterize, but statistically speaking, most likely represents cyst. Splenomegaly and other incidental findings as detailed above
--- NOTE | 2018-07-06 22:25 | CT ---
EXAM: CT Angiography Chest With Intravenous Contrast CLINICAL HISTORY: ITS.REASON CT Reason: Pain TECHNIQUE: Axial computed tomographic angiography images of the chest with intravenous contrast using pulmonary embolism protocol. CTDI is 22.9 mGy and DLP is 622.8 mGy-cm. This CT exam was performed using one or more of the following dose reduction techniques: automated exposure control, adjustment of the mA and/or kV according to patient size, and/or use of iterative reconstruction technique. MIP reconstructed images were created and reviewed. COMPARISON: 03/15/18. FINDINGS: Pulmonary arteries: Unremarkable. No pulmonary embolism. Aorta: No acute findings. No thoracic aortic aneurysm. Lungs: Unremarkable. No mass. No consolidation. Pleural space: Unremarkable. No significant effusion. No pneumothorax. Heart: Unremarkable. No cardiomegaly. No significant pericardial effusion. No evidence of RV dysfunction. Bones/joints: No acute fracture. No dislocation. Soft tissues: Upper abdominal findings are described in the dedicated CT abdomen and pelvis report. Lymph nodes: Unremarkable. No enlarged lymph nodes. IMPRESSION: No PE or aortic dissection. No acute pulmonary infiltrate.
[2018-07-07 00:39] VITALS: BP 145/76; PULSE 78; RESP 16; TEMP 99
== END 2018-07-06 23:01 | disposition home or self-care (01) ==
LOC: EC 19:25
DX: R07.89 Other chest pain (principal); R10.84 Generalized abdominal pain; R53.1 Weakness; R11.2 Nausea with vomiting, unspecified; R63.0 Anorexia; R50.9 Fever, unspecified; Z86.14 Personal history of Methicillin resistant Staphylococcus aureus infection; Z90.49 Acquired absence of other specified parts of digestive tract; Z88.8 Allergy status to other drugs, medicaments and biological substances; Z91.030 Bee allergy status; Z91.048 Other nonmedicinal substance allergy status
CPT/HCPCS: 36415; 93005; 85379; 83880; 80053; 83605; 83735; 84100; 84484; 85025; 81001; 87086; 71046; 71275; 74177; 99285; 96374; 96361; J2405; Q9967

== ENCOUNTER 2018-07-27 09:22 | Emergency (ER) | payer OTHER ==
[2018-07-27 09:34] VITALS: BP 173/95; PULSE 116; RESP 20; TEMP 99.1
--- NOTE | 2018-07-27 10:01 | XR ---
EXAMINATION TYPE: XR chest 2V DATE OF EXAM: 07/27/2018 COMPARISON: Prior chest x-ray 07/06/2018 HISTORY: Cough and pain TECHNIQUE: Frontal and lateral views of the chest are obtained. FINDINGS: The patient is rotated. There is no focal air space opacity, pleural effusion, or pneumotho rax seen. The cardiac silhouette size is within normal limits. The osseous structures are intact. IMPRESSION: No acute cardiopulmonary process.
--- NOTE | 2018-07-27 10:35 | ED ---
URI HPI - General Chief Complaint: Upper Respiratory Infection Stated Complaint: chest pain, cough Time Seen by Provider: 07/27/18 09:38 Source: patient, RN notes reviewed Mode of arrival: ambulatory Limitations: no limitations - History of Present Illness Initial Comments: This a 23-year-old female presents emergency Department chief complaint of chest pain, cough congestion. Patient did show the cough last 24 hours. Patient states it hurts when she coughs in her chest states he also hurts when she takes a deep inspiration. No pain leg pain no leg swelling. No history of PE or DVT. Patient had multiple CTs of her chest recently that are negative. Patient has not taken anything for the discomfort. Patient states she just feels achy does not feel well. - Related Data Home Medications Medication Instructions Recorded Confirmed Aspirin/Acetaminophen/Caffeine 1 tab PO Q12H PRN 07/27/18 07/27/18 [Excedrin Migraine Caplet] Previous Rx's Medication Instructions Recorded Azithromycin [Zithromax Z-pack] 0 mg PO DIRECTED #1 pack 07/27/18 Benzonatate [Tessalon Perles] 100 mg PO TID PRN #15 capsule 07/27/18 Fluticasone Nasal [place] [Flonase 2 spr EA NOSTRIL DAILY #1 bottle 07/27/18 Nasal [place]] Ibuprofen [Motrin] 600 mg PO Q8HR PRN #30 tab 07/27/18 Allergies Allergy/AdvReac Type Severity Reaction Status Date / Time adhesive tape Allergy Rash/Hives Verified 07/27/18 09:48 prednisone Allergy Swelling Verified 07/27/18 09:48 venom-honey bee Allergy Anaphylaxis Verified 07/27/18 09:48 [bee venom (honey bee)] Review of Systems ROS Statement: Those systems with pertinent positive or pertinent negative responses have been documented in the HPI. ROS Other: All systems not noted in ROS Statement are negative. Past Medical History Past Medical History: Asthma, Hypertension Additional Past Medical History / Comment(s): gestational diabetes History of Any Multi-Drug Resistant Organisms: MRSA Date of last positivie culture/infection: 2014 MDRO Source:: Skin Past Surgical History: Section, Cholecystectomy Past Anesthesia/Blood Transfusion Reactions: Postoperative Nausea & Vomiting (PONV) Past Psychological History: Anxiety, Bipolar, Panic Disorder Smoking Status: Never smoker Past Alcohol Use History: None Reported Past Drug Use History: None Reported - Past Family History Mother Family Medical History: No Reported History General Exam Limitations: no limitations General appearance: alert, in no apparent distress Head exam: Present: atraumatic, normocephalic, normal inspection Eye exam: Present: normal appearance, PERRL, EOMI. Absent: scleral icterus, conjunctival injection, periorbital swelling ENT exam: Present: normal exam, normal oropharynx, mucous membranes moist, TM's normal bilaterally, normal external ear exam Neck exam: Present: normal inspection. Absent: tenderness, meningismus, lymphadenopathy Respiratory exam: Present: normal lung sounds bilaterally, chest wall tenderness. Absent: respiratory distress, wheezes, rales, rhonchi, stridor Cardiovascular Exam: Present: normal rhythm, tachycardia, normal heart sounds. Absent: systolic murmur, diastolic murmur, rubs, gallop, clicks GI/Abdominal exam: Present: soft, normal bowel sounds. Absent: distended, tenderness, guarding, rebound, rigid Course Vital Signs 07/27/18 09:30 Temperature 99.1 F Pulse Rate 116 H Respiratory 20 Rate Blood Pressure 173/95 O2 Sat by Pulse 95 Oximetry Medical Decision Making - Medical Decision Making 23-year-old female presents emergency from for cough congestion chest discomfort. Patient's pain is related to costochondritis as is very reproducible along the sternal border. Chest x-ray unremarkable EKG unremarkable - EKG Data EKG Comments: EKG performed at 10:26 sinus tachycardia rate of 102 WV 150 QRS 72 QT/QTC 350/456 Disposition Clinical Impression: Bronchitis, Costochondritis, acute Disposition: HOME SELF-CARE Condition: Stable Instructions (If sedation given, give patient instructions): Costochondritis (ED) Additional Instructions: Please return to the Emergency Department if symptoms worsen or any other concerns. Prescriptions: Fluticasone Nasal [place] [Flonase Nasal [place]] 2 spr EA NOSTRIL DAILY #1 bottle Ibuprofen [Motrin] 600 mg PO Q8HR PRN #30 tab PRN Reason: Pain Benzonatate [Tessalon Perles] 100 mg PO TID PRN #15 capsule PRN Reason: Cough Azithromycin [Zithromax Z-pack] 0 mg PO DIRECTED #1 pack Is patient prescribed a controlled substance at d/c from ED?: No Referrals: Felipa Mesa MD [Primary Care Provider] - 1-2 days Time of Disposition: 11:07
[2018-07-27] MEDS ORDERED: IBUPROFEN 600 MG TAB PO STA (11:18)
== END 2018-07-27 11:28 | disposition home or self-care (01) ==
LOC: EC 09:22
DX: M94.0 Chondrocostal junction syndrome [Tietze] (principal); J40 Bronchitis, not specified as acute or chronic; Z86.14 Personal history of Methicillin resistant Staphylococcus aureus infection; Z91.030 Bee allergy status; Z88.8 Allergy status to other drugs, medicaments and biological substances; Z91.048 Other nonmedicinal substance allergy status
CPT/HCPCS: 71046; 99285

== ENCOUNTER 2018-12-30 17:32 | Emergency (ER) | payer OTHER ==
[2018-12-30 17:45] VITALS: RESP 18; TEMP 98.3
[2018-12-30] MEDS ORDERED: SODIUM CHLORIDE 0.9% 1,000 ML IV STA (18:00)
[2018-12-30] MEDS ORDERED: MORPHINE SULFATE 4 MG/ML SYRINGE IVP STA (18:06)
[2018-12-30] MEDS ORDERED: ONDANSETRON 4 MG/2 ML VIAL IVP STA (18:06)
--- NOTE | 2018-12-30 18:06 | ED ---
Chest Pain HPI <Sarah Del Rosario Sasha - Last Filed: 12/30/18 21:08> - General Source: patient, RN notes reviewed, old records reviewed Mode of arrival: ambulatory Limitations: no limitations - History of Present Illness MD Complaint: chest pain, other (abdpminal pain, vaginal bleeding) Onset: during rest Pain Location: substernal, left chest Pain Radiation: LUE Severity: mild Severity scale (1-10): 3 Quality: tightness Consistency: constant, other (also crampy abdominal pain) Improves With: nothing Worsens With: nothing Anginal Symptoms: nausea, dyspnea Treatments Prior to Arrival: none <Eliazar Soto - Last Filed: 12/31/18 16:32> - General Chief Complaint: Chest Pain Stated Complaint: pelvic pain, bleeding Time Seen by Provider: 12/30/18 17:47 - History of Present Illness Initial Comments: This is a 23-year-old female the ER for evaluation patient does say for evaluation of chest pain. Patient has anterior chest pain left-sided chest pain. Left-sided body. Patient also complaining of abdominal pain with persistent vaginal bleeding. There is had tuba ligation so denying . No recent travel history or sick contacts no fevers. Mild nausea no vomiting no significant diarrhea, she does have also pain with intercourse. No fevers. (Eliazar Soto) - Related Data Home Medications Medication Instructions Recorded Confirmed Aspirin/Acetaminophen/Caffeine 1 tab PO Q12H PRN 07/27/18 07/27/18 [Excedrin Migraine Caplet] Previous Rx's Medication Instructions Recorded Azithromycin [Zithromax Z-pack] 0 mg PO DIRECTED #1 pack 07/27/18 Benzonatate [Tessalon Perles] 100 mg PO TID PRN #15 capsule 07/27/18 Fluticasone Nasal [place] [Flonase 2 spr EA NOSTRIL DAILY #1 bottle 07/27/18 Nasal [place]] Ibuprofen [Motrin] 600 mg PO Q8HR PRN #30 tab 07/27/18 Allergies Allergy/AdvReac Type Severity Reaction Status Date / Time adhesive tape Allergy Rash/Hives Verified 12/30/18 17:45 prednisone Allergy Swelling Verified 12/30/18 17:45 venom-honey bee Allergy Anaphylaxis Verified 12/30/18 17:45 [bee venom (honey bee)] Review of Systems ROS Other: All systems not noted in ROS Statement are negative. <Sarah Del Rosario - Last Filed: 12/30/18 21:08> ROS Other: All systems not noted in ROS Statement are negative. <Eliazar Soto - Last Filed: 12/31/18 16:32> ROS Statement: Those systems with pertinent positive or pertinent negative responses have been documented in the HPI. Past Medical History Past Medical History: Asthma, Hypertension Additional Past Medical History / Comment(s): gestational diabetes History of Any Multi-Drug Resistant Organisms: MRSA Date of last positivie culture/infection: 2014 MDRO Source:: Skin Past Surgical History: Section, Cholecystectomy Past Anesthesia/Blood Transfusion Reactions: Postoperative Nausea & Vomiting (PONV) Past Psychological History: Anxiety, Bipolar, Panic Disorder Smoking Status: Never smoker Past Alcohol Use History: None Reported Past Drug Use History: None Reported - Past Family History Mother Family Medical History: No Reported History <Eliazar Soto - Last Filed: 12/31/18 16:32> General Exam External exam: Present: normal external exam (Pelvic exam was performed by Sarah Del Rosario PA-C). Absent: swelling, lesions Speculum exam: Present: vaginal discharge (Small amount of white milky discharge.). Absent: erythema, cervical discharge, vaginal bleeding By manual exam: Present: normal by manual exam <Sarah Del Rosario - Last Filed: 12/30/18 21:08> Limitations: no limitations General appearance: alert, in no apparent distress, anxious Head exam: Present: atraumatic, normocephalic, normal inspection Eye exam: Present: normal appearance, PERRL, EOMI. Absent: scleral icterus, conjunctival injection, periorbital swelling ENT exam: Present: normal exam, mucous membranes moist Neck exam: Present: normal inspection. Absent: tenderness, meningismus, lymphadenopathy Respiratory exam: Present: normal lung sounds bilaterally. Absent: respiratory distress, wheezes, rales, rhonchi, stridor Cardiovascular Exam: Present: normal rhythm, tachycardia, normal heart sounds. Absent: systolic murmur, diastolic murmur, rubs, gallop, clicks GI/Abdominal exam: Present: soft, normal bowel sounds. Absent: distended, tenderness (diffuse), guarding, rebound, rigid Extremities exam: Present: normal inspection, full ROM, normal capillary refill. Absent: tenderness, pedal edema, joint swelling, calf tenderness Back exam: Present: normal inspection Neurological exam: Present: alert, oriented X3, CN II-XII intact Psychiatric exam: Present: normal affect, normal mood Skin exam: Present: warm, dry, intact, normal color. Absent: rash <Eliazar Soto - Last Filed: 12/31/18 16:32> Course <Eliazar Soto - Last Filed: 12/31/18 16:32> Vital Signs 12/30/18 12/30/18 12/30/18 17:41 19:52 21:09 Temperature 98.3 F Pulse Rate 110 H 83 90 Respiratory 18 18 18 Rate Blood Pressure 143/80 139/81 120/77 O2 Sat by Pulse 98 98 98 Oximetry - Reevaluation(s) Reevaluation #1: 12/30/18 18:06 Medical records reviewed Patient's chest pain abdominal pain is improved (Eliazar Soto) Reevaluation #2: No acute findings. Patient's chest pain or bowel pain pelvic pain. Patient can be discharged home (Eliazar Soto) Chest Pain MDM <Eliazar Soto - Last Filed: 12/31/18 16:32> - MDM 23 female to the ER with atypical chest pain suprapubic abdominal pain, no signs of infection CT chest and pelvis negative for acute disease. Patient can be discharged home (Eliazar Soto) Disposition <Sarah Del Rosario - Last Filed: 12/30/18 21:08> Is patient prescribed a controlled substance at d/c from ED?: No <Eliazar Soto - Last Filed: 12/31/18 16:32> Clinical Impression: Abdominal pain, Atypical chest pain Disposition: HOME SELF-CARE Condition: Good Instructions (If sedation given, give patient instructions): Chest Pain (ED), Abdominal Pain (ED) Referrals: Felipa Mesa MD [Primary Care Provider] - 1-2 days
[2018-12-30 18:46] LABS: Basophils % (A) 1 %; Eosinophils # (A) 0.1 k/uL (0-0.7); Eosinophils % (A) 1 %; HCT 43.6 % (34.0-46.0); HGB 14.8 gm/dL (11.4-16.0); Lymphocytes # (A) 2.1 k/uL (1.0-4.8); Lymphocytes % (A) 29 %; MCH 28.7 pg (25.0-35.0); MCV 84.4 fL (80.0-100.0); Mean Platelet Volume 6.8; Monocytes # (A) 0.3 k/uL (0-1.0); Monocytes % (A) 5 %; Neutrophils # (A) 4.5 k/uL (1.3-7.7); Neutrophils % (A) 63 %; Platelet Count 272 k/uL (150-450); RBC 5.16 m/uL (3.80-5.40); RDW 13.5 % (11.5-15.5); WBC 7.2 k/uL (3.8-10.6)
[2018-12-30 18:50] LABS: Appearance,Urine Cloudy (Clear); Bacteria,Urine Rare /hpf; Bilirubin,Urine Negative (Negative); Blood,Urine Negative (Negative); Color,Urine Yellow; Glucose,Urine (UA) Negative (Negative); Ketones,Urine Negative (Negative); Leukocyte Esterase,Urine Negative (Negative); Mucus,Urine Rare /hpf; Nitrite,Urine Negative (Negative); PH, Urine 5.5 (5.0-8.0); Protein,Urine Trace (Negative); RBC,Urine <1 /hpf (0-5); Specific Gravity,Urine 1.032 (1.001-1.035); Squamous Epithelial Cell,Urine 9 /hpf (0-4); Urobilinogen,Urine <2.0 mg/dL (<2.0)
[2018-12-30 18:57] LABS: ALT 21 U/L (9-52); AST 21 U/L (14-36); African American GFR (CKD) >90 (>60 ml/min/1.73 sqM); Albumin 3.5 g/dL (3.5-5.0); Alkaline Phosphatase 54 U/L (38-126); Amylase 32 U/L (30-110); Anion Gap 4 mmol/L; Blood Urea Nitrogen 18 mg/dL (7-17); Calcium 8.6 mg/dL (8.4-10.2); Carbon Dioxide 24 mmol/L (22-30); Chloride 111 mmol/L (98-107); Creatine Kinase 99 U/L (30-135); Glucose 127 mg/dL (74-99); Potassium 3.9 mmol/L (3.5-5.1); Sodium 139 mmol/L (137-145); Total Bilirubin 0.3 mg/dL (0.2-1.3); Total Protein 5.7 g/dL (6.3-8.2)
--- NOTE | 2018-12-30 20:16 | CT ---
EXAMINATION TYPE: CT angio chest with contrast and with 3-D reconstruction renderings. DATE OF EXAM: 12/30/2018 7:09 PM COMPARISON: 07/06/2018 HISTORY: Chest pain. CT DLP: 676.1. mGycm Automated exposure control for dose reduction was used. CONTRAST: Dyspnea, suspect CTA scan of the thorax is performed with IV Contrast, patient injected wit h 100ml mL of Isovue 370, pulmonary embolism protocol. Three-D reconstructions. FINDINGS: LUNGS: The lungs are grossly clear, there is no concerning parenchymal mass or nodule identified. The re is no pleural effusion or pneumothorax seen. The tracheobronchial tree is patent. MEDIASTINUM: There is satisfactory enhancement of the pulmonary artery and its branches, there is no CT evidence for pulmonary embolism. No acute aortic findings. No cardiomegaly or pericardial effusion . No mediastinal or hilar adenopathy. OTHER: No additional significant abnormality is seen. IMPRESSION: NO ACUTE PROCESS.
--- NOTE | 2018-12-30 20:20 | CT ---
EXAMINATION TYPE: CT abdomen pelvis w con DATE OF EXAM: 12/30/2018 COMPARISON: 07/06/2018 HISTORY: Pelvic pain x2 weeks and vaginal bleeding. CT DLP: 2559.7 mGycm Automated exposure control for dose reduction was used. TECHNIQUE: Helical acquisition of images was performed from the lung bases through the pelvis. CONTRAST: Performed without Oral Contrast and with IV Contrast, patient injected with 100ml mL of Isovue 370. FINDINGS: LUNG BASES: No acute findings. LIVER/GB: No significant abnormality is appreciated. PANCREAS: No significant abnormality is seen. SPLEEN: There is a seen mild splenomegaly is redemonstrated. No focal findings. ADRENALS: No signific ant abnormality is seen. KIDNEYS: No significant abnormality is seen. FREE AIR: No free air is visualized. RETROPERITONEAL ADENOPATHY: None visualized REPRODUCTIVE ORGANS: No significant abnormality is seen URINARY BLADDER: No significant abnormality is seen. PELVIC ADENOPATHY: None visualized. OSSEOUS STRUCTURES: No significant abnormality is seen. BOWEL: No significant abnormality is seen. OTHER: No acute vascular findings. IMPRESSION: NO ACUTE PROCESS.
[2018-12-30 21:10] VITALS: BP 120/77; PULSE 90
[2019-01-01 14:56] LABS: C. trachomatis,PCR Negative (Neg,Equiv); Chlamydia trachomatis Source Urine
[2019-01-02 12:35] LABS: N. gonorrhoeae,PCR Negative (Neg,Equiv); Neisseria Source Urine
== END 2018-12-30 21:10 | disposition home or self-care (01) ==
LOC: EC 17:32
DX: R07.89 Other chest pain (principal); R10.30 Lower abdominal pain, unspecified; R00.0 Tachycardia, unspecified; N89.8 Other specified noninflammatory disorders of vagina; R11.0 Nausea; Z88.8 Allergy status to other drugs, medicaments and biological substances; Z91.030 Bee allergy status; Z91.048 Other nonmedicinal substance allergy status; Z86.14 Personal history of Methicillin resistant Staphylococcus aureus infection; Z98.51 Tubal ligation status; Z90.49 Acquired absence of other specified parts of digestive tract
CPT/HCPCS: 36415; 80053; 82150; 82550; 83690; 85025; 81001; 81025; 84703; 87491; 87591; 71275; 74177; 99285; 96374; 96375; 96361; J2270; J2405; Q9967

== ENCOUNTER 2020-05-18 15:04 | Emergency (ER) | payer OTHER ==
[2020-05-18 15:23] VITALS: BP 110/78; RESP 18; TEMP 98.9
--- NOTE | 2020-05-18 15:27 | ED ---
General Adult HPI - General Source: patient Mode of arrival: ambulatory Limitations: no limitations <Carol Castro P - Last Filed: 05/18/20 15:27> - General Source: RN notes reviewed <Wali Echevarria - Last Filed: 05/18/20 17:02> - General Chief complaint: Upper Respiratory Infection Stated complaint: ENT Time Seen by Provider: 05/18/20 15:27 - History of Present Illness Initial comments: Patient is a 25-year-old female presents to emergency department with her 2 children status post exposure to a Covid-positive family member. She notes that she has had a cough for approximately 2-3 days that is nonproductive and dry and a mildly irritated throat. She notes that she is wanted to get tested to make sure she did have Covid. She denied any chest pain shortness of breath headache nausea vomiting diarrhea constipation fever fatigue chills loss of sense of taste or smell. (Wali Echevarria) - Related Data Home Medications Medication Instructions Recorded Confirmed Aspirin/Acetaminophen/Caffeine 1 tab PO Q12H PRN 07/27/18 07/27/18 [Excedrin Migraine Caplet] Previous Rx's Medication Instructions Recorded Azithromycin [Zithromax Z-pack (6 0 mg PO DIRECTED #1 pack 07/27/18 tabs)] Benzonatate [Tessalon Perles] 100 mg PO TID PRN #15 capsule 07/27/18 Fluticasone Nasal [place] [Flonase 2 spr EA NOSTRIL DAILY #1 bottle 07/27/18 Nasal [place]] Ibuprofen [Motrin] 600 mg PO Q8HR PRN #30 tab 07/27/18 Allergies Allergy/AdvReac Type Severity Reaction Status Date / Time adhesive tape Allergy Rash/Hives Verified 05/18/20 15:23 prednisone Allergy Swelling Verified 05/18/20 15:23 venom-honey bee Allergy Anaphylaxis Verified 05/18/20 15:23 [bee venom (honey bee)] Review of Systems ROS Other: All systems not noted in ROS Statement are negative. <Carol Castro P - Last Filed: 05/18/20 15:27> ROS Other: All systems not noted in ROS Statement are negative. <Wali Echevarria - Last Filed: 05/18/20 17:02> ROS Statement: Those systems with pertinent positive or pertinent negative responses have been documented in the HPI. Past Medical History Past Medical History: Asthma, Hypertension Additional Past Medical History / Comment(s): gestational diabetes History of Any Multi-Drug Resistant Organisms: MRSA Date of last positivie culture/infection: 2014 MDRO Source:: Skin Past Surgical History: Section, Cholecystectomy Past Anesthesia/Blood Transfusion Reactions: Postoperative Nausea & Vomiting (PONV) Past Psychological History: Anxiety, Bipolar, Panic Disorder Smoking Status: Never smoker Past Alcohol Use History: None Reported Past Drug Use History: None Reported - Past Family History Mother Family Medical History: No Reported History <Carol Castro P - Last Filed: 05/18/20 15:27> General Exam Limitations: no limitations <Carol Castro P - Last Filed: 05/18/20 15:27> General appearance: alert, in no apparent distress, obese Head exam: Present: atraumatic, normocephalic, normal inspection Eye exam: Present: normal appearance, PERRL, EOMI. Absent: scleral icterus, conjunctival injection, periorbital swelling ENT exam: Present: normal exam, mucous membranes moist Neck exam: Present: normal inspection. Absent: tenderness, meningismus, lymphadenopathy Respiratory exam: Present: normal lung sounds bilaterally. Absent: respiratory distress, wheezes, rales, rhonchi, stridor Cardiovascular Exam: Present: regular rate, normal rhythm, normal heart sounds. Absent: systolic murmur, diastolic murmur, rubs, gallop, clicks GI/Abdominal exam: Present: soft, normal bowel sounds. Absent: distended, tenderness, guarding, rebound, rigid Extremities exam: Present: normal inspection, full ROM, normal capillary refill. Absent: tenderness, pedal edema, joint swelling, calf tenderness Neurological exam: Present: alert, oriented X3, CN II-XII intact Psychiatric exam: Present: normal affect, normal mood Skin exam: Present: warm, dry, intact, normal color. Absent: rash <Wali Echevarria - Last Filed: 05/18/20 17:02> Course Vital Signs 05/18/20 05/18/20 05/18/20 15:20 15:45 16:18 Temperature 98.9 F Pulse Rate 100 Respiratory 18 18 18 Rate Blood Pressure 110/78 O2 Sat by Pulse 97 Oximetry Medical Decision Making <Wali Echevarria - Last Filed: 05/18/20 17:02> - Medical Decision Making 25-year-old female complaining of a cough that is nonproductive status post exposure to Covid positive family member. Covid test ordered. Vital stable Covid positive per rapid swab. Case discussed with Dr. Castro patient can discharge home with quarantining con servative management. (Wali Echevarria) - Lab Data Lab Results 05/18/20 Range/Units 16:30 Coronavirus (PCR) Detected A (Not Detectd) Disposition <Carol Castro - Last Filed: 05/18/20 15:27> Is patient prescribed a controlled substance at d/c from ED?: No Time of Disposition: 17:02 <Wali Echevarria - Last Filed: 05/18/20 17:02> Clinical Impression: COVID-19 Disposition: HOME SELF-CARE Condition: Stable Instructions (If sedation given, give patient instructions): Upper Respiratory Infection (ED) Additional Instructions: Please return to the Emergency Department if symptoms worsen or any other concerns. Per CDC guidelines quarantine for 10-14 days. Can use [id number] cough syrup and pain medication as needed for symptomatic control. I'll with primary care since possible. Referrals: Felipa Mesa MD [Primary Care Provider] - 1-2 days
[2020-05-18 17:25] VITALS: PULSE 81
== END 2020-05-18 17:15 | disposition home or self-care (01) ==
LOC: EC 15:04
DX: U07.1 COVID-19 (principal); I10 Essential (primary) hypertension; J45.909 Unspecified asthma, uncomplicated; Z79.1 Long term (current) use of non-steroidal anti-inflammatories (NSAID)
CPT/HCPCS: 87635; 99283

== ENCOUNTER 2020-05-24 06:55 | Emergency (ER) | payer OTHER ==
[2020-05-24] MEDS ORDERED: IBUPROFEN 600 MG TAB PO STA (07:06)
[2020-05-24] MEDS ORDERED: ACETAMINOPHEN TAB 500 MG TAB PO STA (07:06)
[2020-05-24] MEDS ORDERED: SODIUM CHLORIDE 0.9% 1,000 ML IV ONE (07:06)
--- NOTE | 2020-05-24 07:08 | ED ---
Fever HPI - General Chief Complaint: Fever Stated Complaint: Fever Time Seen by Provider: 05/24/20 06:58 Source: patient, EMS, RN notes reviewed Mode of arrival: EMS Limitations: no limitations - History of Present Illness Initial Comments: This a 25-year-old female presents emergency department via EMS chief complaint of fever. Patient was seen here few days ago and tested positive for covid. Patient states that she has not taken any recent Tylenol Motrin last dose was last night. Patient states she's has increasing cough but no significant shor tness of breath no chest pain. She states that she felt like her heart was racing this morning but has settled down denies any current vomiting diarrhea constipation dysuria, leg pain or any other complaints. - Related Data Home Medications Medication Instructions Recorded Confirmed Aspirin/Acetaminophen/Caffeine 1 tab PO Q12H PRN 07/27/18 07/27/18 [Excedrin Migraine Caplet] Previous Rx's Medication Instructions Recorded Azithromycin [Zithromax Z-pack (6 0 mg PO DIRECTED #1 pack 07/27/18 tabs)] Benzonatate [Tessalon Perles] 100 mg PO TID PRN #15 capsule 07/27/18 Fluticasone Nasal [place] [Flonase 2 spr EA NOSTRIL DAILY #1 bottle 07/27/18 Nasal [place]] Ibuprofen [Motrin] 600 mg PO Q8HR PRN #30 tab 07/27/18 Allergies Allergy/AdvReac Type Severity Reaction Status Date / Time adhesive tape Allergy Rash/Hives Verified 05/24/20 07:04 prednisone Allergy Swelling Verified 05/24/20 07:04 venom-honey bee Allergy Anaphylaxis Verified 05/24/20 07:04 [bee venom (honey bee)] Review of Systems ROS Statement: Those systems with pertinent positive or pertinent negative responses have been documented in the HPI. ROS Other: All systems not noted in ROS Statement are negative. Past Medical History Past Medical History: Asthma, Hypertension Additional Past Medical History / Comment(s): gestational diabetes History of Any Multi-Drug Resistant Organisms: MRSA Date of last positivie culture/infection: 2014 MDRO Source:: Skin Past Surgical History: Section, Cholecystectomy Past Anesthesia/Blood Transfusion Reactions: Postoperative Nausea & Vomiting (PONV) Past Psychological History: Anxiety, Bipolar, Panic Disorder Smoking Status: Never smoker Past Alcohol Use History: None Reported Past Drug Use History: None Reported - Past Family History Mother Family Medical History: No Reported History General Exam Limitations: no limitations General appearance: alert, in no apparent distress Head exam: Present: atraumatic, normocephalic, normal inspection Eye exam: Present: normal appearance, PERRL, EOMI. Absent: scleral icterus, conjunctival injection, periorbital swelling ENT exam: Present: normal exam, normal oropharynx, mucous membranes moist Neck exam: Present: normal inspection, full ROM. Absent: tenderness, meningismus, lymphadenopathy Respiratory exam: Present: normal lung sounds bilaterally. Absent: respiratory distress, wheezes, rales, rhonchi, stridor Cardiovascular Exam: Present: normal rhythm, tachycardia, normal heart sounds. Absent: systolic murmur, diastolic murmur, rubs, gallop, clicks GI/Abdominal exam: Present: soft, normal bowel sounds. Absent: distended, tenderness, guarding, rebound, rigid Back exam: Absent: CVA tenderness (R), CVA tenderness (L) Neurological exam: Present: alert, oriented X3 Skin exam: Present: warm, dry, intact, normal color. Absent: rash Course Vital Signs 05/24/20 07:01 Temperature 103.1 F H Pulse Rate 116 H Respiratory 18 Rate Blood Pressure 133/83 O2 Sat by Pulse 99 Oximetry Medical Decision Making - Medical Decision Making X-ray shows bilateral infiltrates. Patient was tachycardic with fever. Patient's fever was treated with Tylenol Motrin patient is otherwise medically stable no signs of distress no hypoxia or dyspnea. Patient was given monoclonal antibodies and discharged in stable condition. Disposition Clinical Impression: Pneumonia due to COVID-19 virus Disposition: HOME SELF-CARE Condition: Stable Instructions (If sedation given, give patient instructions): Fever in Adults (ED), Coronavirus Disease 2019 (COVID-19) Additional Instructions: Please return to the Emergency Department if symptoms worsen or any other concerns. Is patient prescribed a controlled substance at d/c from ED?: No Referrals: Felipa Mesa MD [Primary Care Provider] - 1-2 days Time of Disposition: 07:36
--- NOTE | 2020-05-24 07:31 | XR ---
EXAMINATION TYPE: XR chest 2V DATE OF EXAM: 05/24/2020 COMPARISON: Chest x-ray July 27, 2018. CT chest December 30, 2018 HISTORY: Fever, +Covid, cough. TECHNIQUE: Frontal and lateral views of the chest are obtained. FINDINGS: New patchy right hilar and right greater than left bilateral lower lung opacities on backg round low lung volumes. No pleural effusion or pneumothorax seen bilaterally. Cardiac silhouette size is stable and within normal limits. The osseous structures are intact. IMPRESSION: New bilateral multifocal opacities consistent with covid-19 infection.
[2020-05-24] MEDS ORDERED: BAMLANIVIMAB 700 MG in SODIUM CHLORIDE 0.9% 50 ML IVPB ONE (08:00)
[2020-05-24 08:54] VITALS: RESP 16
[2020-05-24 10:10] VITALS: BP 115/78; PULSE 79; TEMP 98.9
== END 2020-05-24 10:14 | disposition home or self-care (01) ==
LOC: EC 06:55
DX: U07.1 COVID-19 (principal); J12.82 Pneumonia due to coronavirus disease 2019; I10 Essential (primary) hypertension; J45.909 Unspecified asthma, uncomplicated; F41.9 Anxiety disorder, unspecified
CPT/HCPCS: 71046; 99283; 96360; Q0239

== ENCOUNTER 2020-08-10 19:47 | Emergency (ER) | payer OTHER ==
[2020-08-10 21:06] VITALS: BP 142/101; PULSE 98; RESP 22; TEMP 98.3
--- NOTE | 2020-08-10 21:59 | XR ---
EXAMINATION TYPE: XR chest 2V DATE OF EXAM: 08/10/2020 COMPARISON: 05/24/2020 HISTORY: Cough TECHNIQUE: FINDINGS: Heart and mediastinum are normal. Lungs are clear. Diaphragm is normal. Bony thorax is norm al. IMPRESSION: Normal chest. No adverse change.
--- NOTE | 2020-08-10 22:27 | ED ---
URI HPI - General Chief Complaint: Upper Respiratory Infection Stated Complaint: cough, chest congestion, fever Time Seen by Provider: 08/10/20 21:40 Source: patient Mode of arrival: ambulatory Limitations: no limitations - Related Data Home Medications Medication Instructions Recorded Confirmed Aspirin/Acetaminophen/Caffeine 1 tab PO Q12H PRN 07/27/18 07/27/18 [Excedrin Migraine Caplet] Previous Rx's Medication Instructions Recorded Azithromycin [Zithromax Z-pack (6 0 mg PO DIRECTED #1 pack 07/27/18 tabs)] Benzonatate [Tessalon Perles] 100 mg PO TID PRN #15 capsule 07/27/18 Fluticasone Nasal [place] [Flonase 2 spr EA NOSTRIL DAILY #1 bottle 07/27/18 Nasal [place]] Ibuprofen [Motrin] 600 mg PO Q8HR PRN #30 tab 07/27/18 Acetaminophen Tab [Tylenol Tab] 500 mg PO Q4H #30 tablet 05/24/20 Ibuprofen [Motrin] 600 mg PO Q8HR PRN #30 tab 05/24/20 Allergies Allergy/AdvReac Type Severity Reaction Status Date / Time adhesive tape Allergy Rash/Hives Verified 08/10/20 21:06 prednisone Allergy Swelling Verified 08/10/20 21:06 venom-honey bee Allergy Anaphylaxis Verified 08/10/20 21:06 [bee venom (honey bee)] Review of Systems ROS Statement: Those systems with pertinent positive or pertinent negative responses have been documented in the HPI. ROS Other: All systems not noted in ROS Statement are negative. Past Medical History Past Medical History: Asthma, Hypertension Additional Past Medical History / Comment(s): gestational diabetes Covid 05/26 History of Any Multi-Drug Resistant Organisms: MRSA Date of last positivie culture/infection: 2014 MDRO Source:: Skin Past Surgical History: Section, Cholecystectomy Past Anesthesia/Blood Transfusion Reactions: Postoperative Nausea & Vomiting (PONV) Past Psychological History: Anxiety, Bipolar, Panic Disorder Smoking Status: Never smoker Past Alcohol Use History: None Reported Past Drug Use History: None Reported - Past Family History Mother Family Medical History: No Reported History General Exam Limitations: no limitations Course Vital Signs 08/10/20 21:02 Temperature 98.3 F Pulse Rate 98 Respiratory 22 Rate Blood Pressure 142/101 O2 Sat by Pulse 97 Oximetry Medical Decision Making - Lab Data Lab Results 08/10/20 Range/Units 21:17 Coronavirus (PCR) Not Detected (Not Detectd) Disposition Clinical Impression: Acute upper respiratory infection Disposition: HOME SELF-CARE Condition: Fair Instructions (If sedation given, give patient instructions): Upper Respiratory Infection (ED) Is patient prescribed a controlled substance at d/c from ED?: No Referrals: Felipa Mesa MD [Primary Care Provider] - 1-2 days
== END 2020-08-10 22:59 | disposition home or self-care (01) ==
LOC: EC 19:47
DX: J06.9 Acute upper respiratory infection, unspecified (principal); I10 Essential (primary) hypertension; J45.909 Unspecified asthma, uncomplicated; F41.9 Anxiety disorder, unspecified; F31.9 Bipolar disorder, unspecified; Z86.16 Personal history of COVID-19; Z20.822 Contact with and (suspected) exposure to COVID-19; Z79.82 Long term (current) use of aspirin
CPT/HCPCS: 71046; 87635; 99283

== ENCOUNTER 2020-09-06 21:53 | Emergency (ER) | payer OTHER ==
[2020-09-06 22:07] VITALS: BP 120/78; RESP 20
--- NOTE | 2020-09-06 22:38 | XR ---
EXAMINATION TYPE: XR chest 2V DATE OF EXAM: 09/06/2020 COMPARISON: 08/10/2020 HISTORY: Fever TECHNIQUE: FINDINGS: Heart and mediastinum are normal. There is some mild infiltrate left lower lobe. The right lung is clear. Bony thorax is intact. There is no pleural effusion. IMPRESSION: There is some mild pneumonia in the left lower lobe which is a change compared to old exa m.
--- NOTE | 2020-09-06 22:41 | ED ---
URI HPI - General Chief Complaint: Upper Respiratory Infection Stated Complaint: Chest Heaviness, Body Aches Time Seen by Provider: 09/06/20 22:14 Source: patient Mode of arrival: ambulatory Limitations: no limitations - History of Present Illness Initial Comments: This patient is a 25-year-old woman. She presents to be evaluated for fever and chills, cough, myalgias. Symptoms had started a few days ago and she was seen at [facility], where she states she was given antibiotics to take for otitis media. The patient notes that her children had similar symptoms and then she developed cough, body aches, fever and chills. MD Complaint: fever, cough -: days(s) Consistency: constant Improves With: nothing Worsens With: nothing Context: sick contacts Associated Symptoms: fever, cough Treatments Prior to Arrival: antibiotics - Related Data Home Medications Medication Instructions Recorded Confirmed Aspirin/Acetaminophen/Caffeine 1 tab PO Q12H PRN 07/27/18 07/27/18 [Excedrin Migraine Caplet] Previous Rx's Medication Instructions Recorded Azithromycin [Zithromax Z-pack (6 0 mg PO DIRECTED #1 pack 07/27/18 tabs)] Benzonatate [Tessalon Perles] 100 mg PO TID PRN #15 capsule 07/27/18 Fluticasone Nasal [place] [Flonase 2 spr EA NOSTRIL DAILY #1 bottle 07/27/18 Nasal [place]] Ibuprofen [Motrin] 600 mg PO Q8HR PRN #30 tab 07/27/18 Acetaminophen Tab [Tylenol Tab] 500 mg PO Q4H #30 tablet 05/24/20 Ibuprofen [Motrin] 600 mg PO Q8HR PRN #30 tab 05/24/20 Azithromycin [Zithromax Z-pack (6 0 mg PO DIRECTED #1 pack 08/10/20 tabs)] Acetaminophen Tab [Tylenol] 650 mg PO Q6H PRN #40 tab 09/06/20 Albuterol Inhaler [Ventolin Hfa 2 puff INHALATION Q4HR PRN #1 09/06/20 Inhaler] inhaler Azithromycin [Zithromax Z-pack (6 250 mg PO DIRECTED #6 tab 09/06/20 tabs)] Benzonatate [Tessalon Perles] 100 mg PO TID PRN #15 capsule 09/06/20 Ibuprofen 600 mg PO Q8H PRN #30 tab 09/06/20 Allergies Allergy/AdvReac Type Severity Reaction Status Date / Time adhesive tape Allergy Rash/Hives Verified 09/06/20 22:03 prednisone Allergy Swelling Verified 09/06/20 22:03 venom-honey bee Allergy Anaphylaxis Verified 09/06/20 22:03 [bee venom (honey bee)] Review of Systems ROS Statement: Those systems with pertinent positive or pertinent negative responses have been documented in the HPI. ROS Other: All systems not noted in ROS Statement are negative. Constitutional: Reports: fever, chills. Denies: weakness Respiratory: Reports: cough, wheezes. Denies: dyspnea Cardiovascular: Denies: chest pain, palpitations, orthopnea, edema, syncope Gastrointestinal: Reports: other (Occasional posttussive emesis). Denies: abdominal pain, nausea, vomiting, diarrhea Genitourinary: Reports: other (Occasional stress incontinence with cough). Denies: dysuria, frequency, hematuria Musculoskeletal: Denies: back pain Skin: Denies: rash Neurological: Denies: headache, weakness Past Medical History Past Medical History: Asthma, Hypertension Additional Past Medical History / Comment(s): gestational diabetes Covid 05/26 History of Any Multi-Drug Resistant Organisms: MRSA Date of last positivie culture/infection: 2014 MDRO Source:: Skin Past Surgical History: Section, Cholecystectomy Past Anesthesia/Blood Transfusion Reactions: Postoperative Nausea & Vomiting (PONV) Past Psychological History: Anxiety, Bipolar, Panic Disorder Smoking Status: Never smoker Past Alcohol Use History: None Reported Past Drug Use History: None Reported - Past Family History Mother Family Medical History: No Reported History General Exam Limitations: no limitations General appearance: alert, in no apparent distress Head exam: Present: atraumatic, normocephalic Eye exam: Present: normal appearance. Absent: scleral icterus, conjunctival injection ENT exam: Present: normal oropharynx, TM's normal bilaterally, normal external ear exam Neck exam: Present: normal inspection, full ROM, lymphadenopathy. Absent: tenderness, meningismus Respiratory exam: Present: normal lung sounds bilaterally, wheezes. Absent: respiratory distress, rales, rhonchi, stridor, accessory muscle use, decreased breath sounds Cardiovascular Exam: Present: regular rate, normal rhythm, normal heart sounds. Absent: systolic murmur, diastolic murmur, rubs, gallop GI/Abdominal exam: Present: soft. Absent: distended, tenderness, guarding, rebound, rigid, mass Extremities exam: Present: normal inspection, normal capillary refill. Absent: pedal edema, calf tenderness Back exam: Present: normal inspection. Absent: CVA tenderness (R), CVA tenderness (L) Neurological exam: Present: alert Skin exam: Present: warm, dry, intact, normal color. Absent: rash Course Vital Signs 09/06/20 22:03 Temperature 102.9 F H Pulse Rate 115 H Respiratory 20 Rate Blood Pressure 120/78 O2 Sat by Pulse 97 Oximetry Medical Decision Making - Lab Data Lab Results 09/06/20 Range/Units 22:20 Coronavirus (PCR) Not Detected (Not Detectd) Disposition Clinical Impression: Pneumonia Disposition: HOME SELF-CARE Condition: Good Instructions (If sedation given, give patient instructions): Pneumonia (ED) Prescriptions: Ibuprofen 600 mg PO Q8H PRN #30 tab PRN Reason: Fever Benzonatate [Tessalon Perles] 100 mg PO TID PRN #15 capsule PRN Reason: Cough Acetaminophen Tab [Tylenol] 650 mg PO Q6H PRN #40 tab PRN Reason: Fever Albuterol Inhaler [Ventolin Hfa Inhaler] 2 puff INHALATION Q4HR PRN #1 inhaler PRN Reason: Wheezing Azithromycin [Zithromax Z-pack (6 tabs)] 250 mg PO DIRECTED #6 tab Is patient prescribed a controlled substance at d/c from ED?: No Referrals: Felipa Mesa MD [Primary Care Provider] - 1-2 days
[2020-09-06] MEDS: IBUPROFEN 800 MG TAB PO STA (23:25)
[2020-09-06] MEDS: BENZONATATE 100 MG CAP PO STA (23:25)
[2020-09-06] MEDS: AZITHROMYCIN 500 MG TAB PO STA (23:29)
[2020-09-06] MEDS: ALBUTEROL NEBULIZED 2.5 MG/3 ML INHALATION STA (23:35)
[2020-09-07 00:06] VITALS: PULSE 104; TEMP 99.2
== END 2020-09-07 00:06 | disposition home or self-care (01) ==
LOC: EC 21:53
DX: J18.9 Pneumonia, unspecified organism (principal); M79.10 Myalgia, unspecified site; J45.909 Unspecified asthma, uncomplicated; I10 Essential (primary) hypertension; F31.9 Bipolar disorder, unspecified; F41.9 Anxiety disorder, unspecified; Z86.16 Personal history of COVID-19; Z20.822 Contact with and (suspected) exposure to COVID-19; Z79.51 Long term (current) use of inhaled steroids; Z79.82 Long term (current) use of aspirin
CPT/HCPCS: 71046; 87635; 94640; 99284

== ENCOUNTER 2020-10-05 16:16 | Emergency (ER) | payer OTHER ==
[2020-10-05 16:28] VITALS: RESP 16
--- NOTE | 2020-10-05 16:46 | ED ---
General Adult HPI - General Chief complaint: Abdominal Pain Stated complaint: Dizziness/Lt Side Pain Time Seen by Provider: 10/05/20 16:19 Source: patient, RN notes reviewed Mode of arrival: EMS Limitations: no limitations - History of Present Illness Initial comments: This is a 25-year-old female presents emergency Department with chief complaint left chest discomfort. Patient states she's been having issues last week. She states she's been having intermittent left-sided chest and abdominal pain. She states it hurts to take a deep breath feels short of breath because it. Patient has no prior cardiac or lung disease. She states today she was donating plasma states she was done kidney and her saline when she started having squeezing type pain again left-sided rib chest. She states she's started to breathe very rapidly like she would not pass out. Patient states the pain went down her left side. No current prescription medications. She's been donating plasma for last 4 years. - Related Data Home Medications Medication Instructions Recorded Confirmed Aspirin/Acetaminophen/Caffeine 1 tab PO Q12H PRN 07/27/18 07/27/18 [Excedrin Migraine Caplet] Previous Rx's Medication Instructions Recorded Azithromycin [Zithromax Z-pack (6 0 mg PO DIRECTED #1 pack 07/27/18 tabs)] Benzonatate [Tessalon Perles] 100 mg PO TID PRN #15 capsule 07/27/18 Fluticasone Nasal [place] [Flonase 2 spr EA NOSTRIL DAILY #1 bottle 07/27/18 Nasal [place]] Ibuprofen [Motrin] 600 mg PO Q8HR PRN #30 tab 07/27/18 Acetaminophen Tab [Tylenol Tab] 500 mg PO Q4H #30 tablet 05/24/20 Ibuprofen [Motrin] 600 mg PO Q8HR PRN #30 tab 05/24/20 Azithromycin [Zithromax Z-pack (6 0 mg PO DIRECTED #1 pack 08/10/20 tabs)] Acetaminophen Tab [Tylenol] 650 mg PO Q6H PRN #40 tab 09/06/20 Albuterol Inhaler [Ventolin Hfa 2 puff INHALATION Q4HR PRN #1 09/06/20 Inhaler] inhaler Azithromycin [Zithromax Z-pack (6 250 mg PO DIRECTED #6 tab 07/02/21 tabs)] Benzonatate [Tessalon Perles] 100 mg PO TID PRN #15 capsule 09/06/20 Ibuprofen 600 mg PO Q8H PRN #30 tab 09/06/20 Ibuprofen [Motrin] 600 mg PO Q8HR PRN #20 tab 10/05/20 Allergies Allergy/AdvReac Type Severity Reaction Status Date / Time adhesive tape Allergy Rash/Hives Verified 10/05/20 16:28 prednisone Allergy Swelling Verified 10/05/20 16:28 venom-honey bee Allergy Anaphylaxis Verified 10/05/20 16:28 [bee venom (honey bee)] Review of Systems ROS Statement: Those systems with pertinent positive or pertinent negative responses have been documented in the HPI. ROS Other: All systems not noted in ROS Statement are negative. Past Medical History Past Medical History: Asthma, Hypertension Additional Past Medical History / Comment(s): gestational diabetes Covid 05/26 History of Any Multi-Drug Resistant Organisms: MRSA Date of last positivie culture/infection: 2014 MDRO Source:: Skin Past Surgical History: Section, Cholecystectomy Past Anesthesia/Blood Transfusion Reactions: Postoperative Nausea & Vomiting (PONV) Past Psychological History: Anxiety, Bipolar, Panic Disorder Smoking Status: Never smoker Past Alcohol Use History: None Reported Past Drug Use History: None Reported - Past Family History Mother Family Medical History: No Reported History General Exam Limitations: no limitations General appearance: alert, in no apparent distress Head exam: Present: atraumatic, normocephalic, normal inspection Eye exam: Present: normal appearance, PERRL, EOMI. Absent: scleral icterus, conjunctival injection, periorbital swelling Neck exam: Present: normal inspection. Absent: tenderness, meningismus, lymphadenopathy Respiratory exam: Present: normal lung sounds bilaterally, chest wall tenderness. Absent: respiratory distress, wheezes, rales, rhonchi, stridor Cardiovascular Exam: Present: regular rate, normal rhythm, normal heart sounds. Absent: systolic murmur, diastolic murmur, rubs, gallop, clicks GI/Abdominal exam: Present: soft, tenderness, normal bowel sounds. Absent: distended, guarding, rebound, rigid Back exam: Absent: CVA tenderness (R), CVA tenderness (L) Neurological exam: Present: alert Skin exam: Present: warm, dry, intact, normal color. Absent: rash Course Vital Signs 0710/05/20 10/05/20 16:23 16:24 16:30 Temperature 98.5 F Pulse Rate 90 105 H Respiratory 16 Rate Blood Pressure 135/94 135/94 O2 Sat by Pulse 96 95 Oximetry 10/05/20 10/05/20 10/05/20 16:40 16:50 17:00 Temperature Pulse Rate 106 H 86 Respiratory Rate Blood Pressure 135/94 135/94 135/94 O2 Sat by Pulse 97 98 97 Oximetry 10/05/20 10/05/20 10/05/20 17:10 17:20 18:20 Temperature Pulse Rate 82 86 99 Respiratory 16 Rate Blood Pressure 128/76 O2 Sat by Pulse 99 100 95 Oximetry Medical Decision Making - Medical Decision Making 45-year-old presented for left sided chest discomfort. X-ray, d-dimer, troponin, labs unremarkable. Patient was updated on results she was resting in room sleeping. Patient may have some underlying chest wall inflammation was started on anti-inflammatories. Return parameters discussed. - Lab Data Result diagrams: 10/05/20 16:39 10/05/20 16:39 Lab Results 10/05/20 10/05/20 10/05/20 Range/Units 16:39 16:39 16:39 WBC 6.7 (3.8-10.6) k/uL RBC 5.56 H (3.80-5.40) m/uL Hgb 16.2 H (11.4-16.0) gm/dL Hct 48.2 H (34.0-46.0) % MCV 86.7 (80.0-100.0) fL MCH 29.2 (25.0-35.0) pg MCHC 33.7 (31.0-37.0) g/dL RDW 13.4 (11.5-15.5) % Plt Count 240 (150-450) k/uL MPV 8.3 Neutrophils % 65 % Lymphocytes % 27 % Monocytes % 5 % Eosinophils % 1 % Basophils % 1 % Neutrophils # 4.4 (1.3-7.7) k/uL Lymphocytes # 1.8 (1.0-4.8) k/uL Monocytes # 0.3 (0-1.0) k/uL Eosinophils # 0.1 (0-0.7) k/uL Basophils # 0.0 (0-0.2) k/uL PT 10.4 (9.0-12.0) sec INR 1.0 (<1.2) APTT 22.5 (22.0-30.0) sec D-Dimer 0.27 (<0.60) mg/L FEU Sodium 138 (137-145) mmol/L Potassium 4.2 (3.5-5.1) mmol/L Chloride 109 H (98-107) mmol/L Carbon Dioxide 22 (22-30) mmol/L Anion Gap 7 mmol/L BUN 14 (7-17) mg/dL Creatinine 0.62 (0.52-1.04) mg/dL Est GFR (CKD-EPI)AfAm >90 (>60 ml/min/1.73 sqM) Est GFR (CKD-EPI)NonAf >90 (>60 ml/min/1.73 sqM) Glucose 175 H (74-99) mg/dL Calcium 8.7 (8.4-10.2) mg/dL Magnesium 1.8 (1.6-2.3) mg/dL Total Bilirubin 0.3 (0.2-1.3) mg/dL AST 23 (14-36) U/L ALT 18 (4-34) U/L Alkaline Phosphatase 71 (38-126) U/L Troponin I (0.000-0.034) ng/mL Total Protein 6.1 L (6.3-8.2) g/dL Albumin 3.6 (3.5-5.0) g/dL Lipase 54 (23-300) U/L Urine Color Urine Appearance (Clear) Urine pH (5.0-8.0) Ur Specific [place] (1.001-1.035) Urine Protein (Negative) Urine Glucose (UA) (Negative) Urine Ketones (Negative) Urine Blood (Negative) Urine Nitrite (Negative) Urine Bilirubin (Negative) Urine Urobilinogen (<2.0) mg/dL Ur Leukocyte Esterase (Negative) Urine RBC (0-5) /hpf Urine WBC (0-5) /hpf Ur Squamous Epith Cells (0-4) /hpf Urine Bacteria (None) /hpf Urine Mucus (None) /hpf Urine HCG, Qual (Not Detectd) 10/05/20 10/05/20 10/05/20 Range/Units 16:39 17:50 17:50 WBC (3.8-10.6) k/uL RBC (3.80-5.40) m/uL Hgb (11.4-16.0) gm/dL Hct (34.0-46.0) % MCV (80.0-100.0) fL MCH (25.0-35.0) pg MCHC (31.0-37.0) g/dL RDW (11.5-15.5) % Plt Count (150-450) k/uL MPV Neutrophils % % Lymphocytes % % Monocytes % % Eosinophils % % Basophils % % Neutrophils # (1.3-7.7) k/uL Lymphocytes # (1.0-4.8) k/uL Monocytes # (0-1.0) k/uL Eosinophils # (0-0.7) k/uL Basophils # (0-0.2) k/uL PT (9.0-12.0) sec INR (<1.2) APTT (22.0-30.0) sec D-Dimer (<0.60) mg/L FEU Sodium (137-145) mmol/L Potassium (3.5-5.1) mmol/L Chloride (98-107) mmol/L Carbon Dioxide (22-30) mmol/L Anion Gap mmol/L BUN (7-17) mg/dL Creatinine (0.52-1.04) mg/dL Est GFR (CKD-EPI)AfAm (>60 ml/min/1.73 sqM) Est GFR (CKD-EPI)NonAf (>60 ml/min/1.73 sqM) Glucose (74-99) mg/dL Calcium (8.4-10.2) mg/dL Magnesium (1.6-2.3) mg/dL Total Bilirubin (0.2-1.3) mg/dL AST (14-36) U/L ALT (4-34) U/L Alkaline Phosphatase (38-126) U/L Troponin I <0.012 (0.000-0.034) ng/mL Total Protein (6.3-8.2) g/dL Albumin (3.5-5.0) g/dL Lipase (23-300) U/L Urine Color Yellow Urine Appearance Clear (Clear) Urine pH 5.0 (5.0-8.0) Ur Specific [place] 1.034 (1.001-1.035) Urine Protein Trace H (Negative) Urine Glucose (UA) Negative (Negative) Urine Ketones Negative (Negative) Urine Blood Trace H (Negative) Urine Nitrite Negative (Negative) Urine Bilirubin Negative (Negative) Urine Urobilinogen 2.0 (<2.0) mg/dL Ur Leukocyte Esterase Negative (Negative) Urine RBC 1 (0-5) /hpf Urine WBC 1 (0-5) /hpf Ur Squamous Epith Cells 3 (0-4) /hpf Urine Bacteria Occasional H (None) /hpf Urine Mucus Moderate H (None) /hpf Urine HCG, Qual Not Detected (Not Detectd) Disposition Clinical Impression: Chest wall pain Disposition: HOME SELF-CARE Condition: Stable Instructions (If sedation given, give patient instructions): Chest Pain (ED) Additional Instructions: Please return to the Emergency Department if symptoms worsen or any other concerns. Prescriptions: Ibuprofen [Motrin] 600 mg PO Q8HR PRN #20 tab PRN Reason: Pain Is patient prescribed a controlled substance at d/c from ED?: No Referrals: Felipa Mesa MD [Primary Care Provider] - 1-2 days Time of Disposition: 18:37
[2020-10-05 16:56] LABS: Basophils % (A) 1 %; Eosinophils # (A) 0.1 k/uL (0-0.7); Eosinophils % (A) 1 %; HCT 48.2 % (34.0-46.0); HGB 16.2 gm/dL (11.4-16.0); Lymphocytes # (A) 1.8 k/uL (1.0-4.8); Lymphocytes % (A) 27 %; MCH 29.2 pg (25.0-35.0); MCHC 33.7 g/dL (31.0-37.0); MCV 86.7 fL (80.0-100.0); Mean Platelet Volume 8.3; Monocytes # (A) 0.3 k/uL (0-1.0); Monocytes % (A) 5 %; Neutrophils # (A) 4.4 k/uL (1.3-7.7); Neutrophils % (A) 65 %; Platelet Count 240 k/uL (150-450); RBC 5.56 m/uL (3.80-5.40); RDW 13.4 % (11.5-15.5); WBC 6.7 k/uL (3.8-10.6)
[2020-10-05 17:09] LABS: ALT 18 U/L (4-34); AST 23 U/L (14-36); African American GFR (CKD) >90 (>60 ml/min/1.73 sqM); Albumin 3.6 g/dL (3.5-5.0); Alkaline Phosphatase 71 U/L (38-126); Anion Gap 7 mmol/L; Blood Urea Nitrogen 14 mg/dL (7-17); Calcium 8.7 mg/dL (8.4-10.2); Carbon Dioxide 22 mmol/L (22-30); Chloride 109 mmol/L (98-107); Glucose 175 mg/dL (74-99); Lipase 54 U/L (23-300); Magnesium 1.8 mg/dL (1.6-2.3); Non-African American GFR(CKD) >90 (>60 ml/min/1.73 sqM); Potassium 4.2 mmol/L (3.5-5.1); Sodium 138 mmol/L (137-145); Total Bilirubin 0.3 mg/dL (0.2-1.3); Total Protein 6.1 g/dL (6.3-8.2)
[2020-10-05 17:12] LABS: Prothrombin Time 10.4 sec (9.0-12.0)
[2020-10-05 17:19] LABS: Partial Thromboplastin Time 22.5 sec (22.0-30.0)
[2020-10-05] MEDS: METOCLOPRAMIDE 5 MG/ML 2 ML VIAL IVP STA (17:24)
[2020-10-05] MEDS: SODIUM CHLORIDE 0.9% 1,000 ML IV ONE (17:24)
--- NOTE | 2020-10-05 17:58 | XR ---
EXAMINATION TYPE: XR chest 2V DATE OF EXAM: 10/05/2020 COMPARISON: September 06, 2020 HISTORY: Fever TECHNIQUE: 2 views FINDINGS: Heart and mediastinum are normal. Lungs are clear. Diaphragm is normal. Bony thorax is inta ct. IMPRESSION: Normal chest. No change.
[2020-10-05 18:17] LABS: Appearance,Urine Clear (Clear); Bacteria,Urine Occasional /hpf; Bilirubin,Urine Negative (Negative); Blood,Urine Trace (Negative); Color,Urine Yellow; Glucose,Urine (UA) Negative (Negative); Ketones,Urine Negative (Negative); Leukocyte Esterase,Urine Negative (Negative); Mucus,Urine Moderate /hpf; Nitrite,Urine Negative (Negative); Protein,Urine Trace (Negative); RBC,Urine 1 /hpf (0-5); Specific Gravity,Urine 1.034 (1.001-1.035); Squamous Epithelial Cell,Urine 3 /hpf (0-4); WBC,Urine 1 /hpf (0-5)
[2020-10-05] MEDS: ACET/COD 300 MG/30 MG STARTER PACK 6 TAB BTL PO STA (19:06)
[2020-10-05 19:16] VITALS: BP 125/78; PULSE 78; TEMP 98.7
== END 2020-10-05 19:15 | disposition home or self-care (01) ==
LOC: EC 16:16
DX: R07.89 Other chest pain (principal); R06.02 Shortness of breath; I10 Essential (primary) hypertension; J45.909 Unspecified asthma, uncomplicated; F31.9 Bipolar disorder, unspecified; F41.9 Anxiety disorder, unspecified; Z86.16 Personal history of COVID-19; Z79.51 Long term (current) use of inhaled steroids; Z79.82 Long term (current) use of aspirin
CPT/HCPCS: 36415; 93005; 85379; 80053; 83690; 83735; 84484; 85025; 85610; 85730; 81001; 81025; 71046; 99285; 96374; 96361; J2765

== ENCOUNTER 2020-12-14 13:07 | Emergency (ER) | payer OTHER ==
[2020-12-14 13:18] VITALS: TEMP 98.5
--- NOTE | 2020-12-14 13:56 | ED ---
General Adult HPI - General Chief complaint: Chest Pain Stated complaint: chest pain Time Seen by Provider: 12/14/20 13:09 Source: patient, EMS, old records reviewed Mode of arrival: EMS Limitations: no limitations - History of Present Illness Initial comments: Patient is a 25-year-old female past medical history of asthma, hypertension when she was younger who presents to the emergency department with midsternal chest pain which radiates towards her back. She reports that her symptoms have been present over the past week. She has intermittent episodes where she gets sudden onset of chest pain, abdominal pain and shortness of breath. She gets a sense of doom as if she is going to . States that her wafer and has been having similar symptoms. Denies fevers, chills or cough. Denies concern for . No smoking or alcohol intake. Denies previous history of cardiac disease. No family history of sudden cardiac . She was seen at [facility] yesterday for similar complaint and diagnosed with tachycardia. Instructed to follow-up with a composite laminator. Patient reports that she had recurrence of her symptoms today, panicked and called EMS. Denies changes in her bowel or bladder habits. No other alleviating, precipitating or modifying factors - Related Data Previous Rx's Medication Instructions Recorded Ondansetron Odt [Zofran Odt] 4 mg PO Q8HR PRN #15 tab 12/14/20 Allergies Allergy/AdvReac Type Severity Reaction Status Date / Time adhesive tape Allergy Rash/Hives Verified 12/14/20 13:44 prednisone Allergy Swelling Verified 12/14/20 13:44 venom-honey bee Allergy Anaphylaxis Verified 12/14/20 13:44 [bee venom (honey bee)] Review of Systems ROS Statement: Those systems with pertinent positive or pertinent negative responses have been documented in the HPI. ROS Other: All systems not noted in ROS Statement are negative. Past Medical History Past Medical History: Asthma, Hypertension Additional Past Medical History / Comment(s): gestational diabetes Covid 05/26 History of Any Multi-Drug Resistant Organisms: MRSA Date of last positivie culture/infection: 2014 MDRO Source:: Skin Past Surgical History: Section, Cholecystectomy Past Anesthesia/Blood Transfusion Reactions: Postoperative Nausea & Vomiting (PONV) Past Psychological History: Anxiety, Bipolar, Panic Disorder Smoking Status: Never smoker Past Alcohol Use History: None Reported Past Drug Use History: None Reported - Past Family History Mother Family Medical History: No Reported History General Exam Limitations: no limitations General appearance: alert, in no apparent distress Head exam: Present: atraumatic, normocephalic, normal inspection Eye exam: Present: normal appearance, PERRL, EOMI. Absent: scleral icterus, conjunctival injection, periorbital swelling ENT exam: Present: normal exam, mucous membranes moist Neck exam: Present: normal inspection. Absent: tenderness, meningismus, lymphadenopathy Respiratory exam: Present: normal lung sounds bilaterally. Absent: respiratory distress, wheezes, rales, rhonchi, stridor Cardiovascular Exam: Present: regular rate, normal rhythm, normal heart sounds. Absent: systolic murmur, diastolic murmur, rubs, gallop, clicks GI/Abdominal exam: Present: soft, normal bowel sounds. Absent: distended, tenderness, guarding, rebound, rigid Extremities exam: Present: normal inspection, full ROM, normal capillary refill. Absent: tenderness, pedal edema, joint swelling, calf tenderness Back exam: Present: normal inspection Neurological exam: Present: alert, oriented X3, CN II-XII intact Psychiatric exam: Present: normal affect, normal mood Skin exam: Present: warm, dry, intact, normal color. Absent: rash Course Vital Signs 12/14/20 12/14/20 12/14/20 13:10 14:18 16:17 Temperature 98.5 F 98.5 F Pulse Rate 77 78 72 Respiratory 18 16 16 Rate Blood Pressure 123/88 124/81 130/73 O2 Sat by Pulse 99 98 100 Oximetry EKG Findings - EKG Comments: EKG Findings:: EKG demonstrates normal sinus rhythm with a ventricular rate of 73. NJ interval 138. QRS 72. QTC of 429. No acute ST segment elevations or depressions concerning for ischemic changes Medical Decision Making - Medical Decision Making Upon arrival patient is placed into room 27. Thorough history and physical exam was performed. IV had been established by EMS. Laboratory studies are conducted. Reports that her symptoms are gone at this time. 12-lead EKG was performed. Laboratory studies are reviewed. D-dimer 0.25. Troponin is negative. Chest x-ray demonstrates no acute ST process. Patient was discharged home at this time he needs to follow-up with her primary care physician in regards to her symptoms. Recommend that the patient have Holter monitoring and echo. She is also given follow-up information for [facility]. If the patient has any new or worsening symptoms she should return to the emergency room. Patient agreed to the treatment plan. Requesting prescription for Zofran for her nausea which is sent to the pharmacy. Patient was discharged home in stable condition - Lab Data Result diagrams: 12/14/20 14:33 12/14/20 14:33 Lab Results 12/14/20 12/14/20 12/14/20 Range/Units 14:33 14:33 14:33 WBC 5.2 (3.8-10.6) k/uL RBC 4.52 (3.80-5.40) m/uL Hgb 13.0 (11.4-16.0) gm/dL Hct 39.6 (34.0-46.0) % MCV 87.7 (80.0-100.0) fL MCH 28.7 (25.0-35.0) pg MCHC 32.8 (31.0-37.0) g/dL RDW 13.3 (11.5-15.5) % Plt Count 209 (150-450) k/uL MPV 8.3 Neutrophils % 59 % Lymphocytes % 33 % Monocytes % 5 % Eosinophils % 1 % Basophils % 0 % Neutrophils # 3.1 (1.3-7.7) k/uL Lymphocytes # 1.7 (1.0-4.8) k/uL Monocytes # 0.3 (0-1.0) k/uL Eosinophils # 0.1 (0-0.7) k/uL Basophils # 0.0 (0-0.2) k/uL PT 10.4 (9.0-12.0) sec INR 1.0 (<1.2) APTT 22.6 (22.0-30.0) sec D-Dimer 0.25 (<0.60) mg/L FEU Sodium 139 (137-145) mmol/L Potassium 3.9 (3.5-5.1) mmol/L Chloride 111 H (98-107) mmol/L Carbon Dioxide 22 (22-30) mmol/L Anion Gap 6 mmol/L BUN 11 (7-17) mg/dL Creatinine 0.61 (0.52-1.04) mg/dL Est GFR (CKD-EPI)AfAm >90 (>60 ml/min/1.73 sqM) Est GFR (CKD-EPI)NonAf >90 (>60 ml/min/1.73 sqM) Glucose 95 (74-99) mg/dL Calcium 8.7 (8.4-10.2) mg/dL Magnesium 2.0 (1.6-2.3) mg/dL Total Bilirubin 0.4 (0.2-1.3) mg/dL AST 22 (14-36) U/L ALT 17 (4-34) U/L Alkaline Phosphatase 55 (38-126) U/L Troponin I (0.000-0.034) ng/mL Total Protein 6.0 L (6.3-8.2) g/dL Albumin 3.6 (3.5-5.0) g/dL Lipase 49 (23-300) U/L 12/14/20 Range/Units 14:33 WBC (3.8-10.6) k/uL RBC (3.80-5.40) m/uL Hgb (11.4-16.0) gm/dL Hct (34.0-46.0) % MCV (80.0-100.0) fL MCH (25.0-35.0) pg MCHC (31.0-37.0) g/dL RDW (11.5-15.5) % Plt Count (150-450) k/uL MPV Neutrophils % % Lymphocytes % % Monocytes % % Eosinophils % % Basophils % % Neutrophils # (1.3-7.7) k/uL Lymphocytes # (1.0-4.8) k/uL Monocytes # (0-1.0) k/uL Eosinophils # (0-0.7) k/uL Basophils # (0-0.2) k/uL PT (9.0-12.0) sec INR (<1.2) APTT (22.0-30.0) sec D-Dimer (<0.60) mg/L FEU Sodium (137-145) mmol/L Potassium (3.5-5.1) mmol/L Chloride (98-107) mmol/L Carbon Dioxide (22-30) mmol/L Anion Gap mmol/L BUN (7-17) mg/dL Creatinine (0.52-1.04) mg/dL Est GFR (CKD-EPI)AfAm (>60 ml/min/1.73 sqM) Est GFR (CKD-EPI)NonAf (>60 ml/min/1.73 sqM) Glucose (74-99) mg/dL Calcium (8.4-10.2) mg/dL Magnesium (1.6-2.3) mg/dL Total Bilirubin (0.2-1.3) mg/dL AST (14-36) U/L ALT (4-34) U/L Alkaline Phosphatase (38-126) U/L Troponin I <0.012 (0.000-0.034) ng/mL Total Protein (6.3-8.2) g/dL Albumin (3.5-5.0) g/dL Lipase (23-300) U/L Disposition Clinical Impression: Chest pain Disposition: HOME SELF-CARE Condition: Stable Instructions (If sedation given, give patient instructions): Chest Pain (ED) Additional Instructions: Please follow up with your PCP in 2-4 days. You need holter monitoring and an echo. Return to the ED for any new or worsening symptoms. Prescriptions: Ondansetron Odt [Zofran Odt] 4 mg PO Q8HR PRN #15 tab PRN Reason: Nausea Is patient prescribed a controlled substance at d/c from ED?: No Referrals: Felipa Mesa MD [Primary Care Provider] - 1-2 days [facility] [Provider Group] - 1-2 days Time of Disposition: 15:54
[2020-12-14 14:51] LABS: Basophils % (A) 0 %; Eosinophils # (A) 0.1 k/uL (0-0.7); Eosinophils % (A) 1 %; HCT 39.6 % (34.0-46.0); Lymphocytes # (A) 1.7 k/uL (1.0-4.8); Lymphocytes % (A) 33 %; MCH 28.7 pg (25.0-35.0); MCHC 32.8 g/dL (31.0-37.0); MCV 87.7 fL (80.0-100.0); Mean Platelet Volume 8.3; Monocytes # (A) 0.3 k/uL (0-1.0); Monocytes % (A) 5 %; Neutrophils # (A) 3.1 k/uL (1.3-7.7); Neutrophils % (A) 59 %; Platelet Count 209 k/uL (150-450); RBC 4.52 m/uL (3.80-5.40); RDW 13.3 % (11.5-15.5); WBC 5.2 k/uL (3.8-10.6)
--- NOTE | 2020-12-14 14:51 | XR ---
EXAMINATION TYPE: XR chest 2V DATE OF EXAM: 12/14/2020 COMPARISON: 10/05/2020 HISTORY: Chest pain TECHNIQUE: 2 views FINDINGS: Heart and mediastinum are normal. Lungs are clear. Diaphragm is normal. Bony thorax is inta ct. IMPRESSION: Normal chest. No change.
[2020-12-14 15:00] LABS: ALT 17 U/L (4-34); AST 22 U/L (14-36); African American GFR (CKD) >90 (>60 ml/min/1.73 sqM); Albumin 3.6 g/dL (3.5-5.0); Alkaline Phosphatase 55 U/L (38-126); Anion Gap 6 mmol/L; Blood Urea Nitrogen 11 mg/dL (7-17); Calcium 8.7 mg/dL (8.4-10.2); Carbon Dioxide 22 mmol/L (22-30); Chloride 111 mmol/L (98-107); Glucose 95 mg/dL (74-99); Lipase 49 U/L (23-300); Non-African American GFR(CKD) >90 (>60 ml/min/1.73 sqM); Potassium 3.9 mmol/L (3.5-5.1); Sodium 139 mmol/L (137-145); Total Bilirubin 0.4 mg/dL (0.2-1.3)
[2020-12-14 15:04] LABS: Partial Thromboplastin Time 22.6 sec (22.0-30.0); Prothrombin Time 10.4 sec (9.0-12.0)
[2020-12-14 15:16] VITALS: RESP 16
[2020-12-14 16:18] VITALS: BP 130/73; PULSE 72
== END 2020-12-14 16:18 | disposition home or self-care (01) ==
LOC: EC 13:07
DX: R07.89 Other chest pain (principal); I10 Essential (primary) hypertension; J45.909 Unspecified asthma, uncomplicated
CPT/HCPCS: 36415; 71046; 80053; 83690; 83735; 84484; 85025; 85379; 85610; 85730; 93005; 99285

== ENCOUNTER 2021-03-26 17:58 | Emergency (ER) | payer OTHER ==
[2021-03-26 19:10] VITALS: BP 122/92; PULSE 83; RESP 18; TEMP 99.2
--- NOTE | 2021-03-26 19:31 | ED ---
General Adult HPI - General Chief complaint: Upper Respiratory Infection Stated complaint: post Covid chest pain Time Seen by Provider: 03/26/21 19:20 Source: patient, RN notes reviewed, old records reviewed Mode of arrival: ambulatory Limitations: no limitations - History of Present Illness Initial comments: This is a well-appearing 26-year-old female who presents to the emergency room ambulatory with complaints of persistent shortness of breath, chest pain and abdominal pain after being diagnosed with coronavirus on March 15. Patient states she continues to have low-grade fevers. She is ALLERGIC to prednisone but was prescribed an albuterol inhaler which she has been using. She has a temperature of 99.2 with oxygen saturation 98%. Pt is in no acute distress. -: days(s) (11) Location: chest Quality: aching Consistency: intermittent Associated Symptoms: cough, malaise Treatments Prior to Arrival: none - Related Data Home Medications Medication Instructions Recorded Confirmed Albuterol Inhaler [Ventolin Hfa 2 puff INHALATION RT-QID PRN 03/26/21 03/26/21 Inhaler] Previous Rx's Medication Instructions Recorded Acetaminophen [Tylenol] 500 mg PO Q6HR PRN 14 Days #56 tab 03/15/21 Ibuprofen [Motrin] 400 mg PO Q6HR PRN 14 Days #56 tab 03/15/21 Allergies Allergy/AdvReac Type Severity Reaction Status Date / Time adhesive tape Allergy Rash/Hives Verified 03/26/21 19:43 prednisone Allergy Swelling Verified 03/26/21 19:43 venom-honey bee Allergy Anaphylaxis Verified 03/26/21 19:43 [bee venom (honey bee)] Review of Systems ROS Statement: Those systems with pertinent positive or pertinent negative responses have been documented in the HPI. ROS Other: All systems not noted in ROS Statement are negative. Past Medical History Past Medical History: Asthma, Hypertension Additional Past Medical History / Comment(s): gestational diabetes Covid 05/26 History of Any Multi-Drug Resistant Organisms: MRSA Date of last positivie culture/infection: 2014 MDRO Source:: Skin Past Surgical History: Section, Cholecystectomy Past Anesthesia/Blood Transfusion Reactions: Postoperative Nausea & Vomiting (PONV) Past Psychological History: Anxiety, Bipolar, Panic Disorder Smoking Status: Never smoker Past Alcohol Use History: None Reported Past Drug Use History: None Reported - Past Family History Mother Family Medical History: No Reported History General Exam Limitations: no limitations General appearance: alert, in no apparent distress Head exam: Present: atraumatic, normocephalic, normal inspection Eye exam: Present: normal appearance, EOMI Respiratory exam: Present: normal lung sounds bilaterally, chest wall tenderness (left side). Absent: respiratory distress, wheezes, rales, rhonchi, stridor, accessory muscle use, decreased breath sounds Cardiovascular Exam: Present: regular rate, normal rhythm, normal heart sounds. Absent: systolic murmur, diastolic murmur, rubs, gallop, clicks, JVD Neurological exam: Present: alert, oriented X3, normal gait Psychiatric exam: Present: normal affect, normal mood Skin exam: Present: warm, dry, intact, normal color. Absent: rash, cyanosis, diaphoretic, petechiae, pallor Course Vital Signs 03/26/21 19:08 Temperature 99.2 F Pulse Rate 83 Respiratory 18 Rate Blood Pressure 122/92 O2 Sat by Pulse 98 Oximetry Medical Decision Making - Medical Decision Making 18-year-old female presents emergency room with complaints of continued left- sided chest tightness, abdominal pain and low-grade fevers since being diagnosed with Covid on March 15. She has been using her albuterol inhaler with minimal relief. She does have a history of asthma and hypertension. She is ALLERGIC to prednisone which causes swelling. Patient is in no respiratory distress. Ambulating in hallway with no dyspnea. Heart rate is 83, oxygen saturation is 98% on room air, temp is 99.2. I have no concerns for pulmonary embolism, PERC rule applied no risk for PE. Chest x-ray shows normal chest, no evidence of infiltrate. No change compared to chest x-ray done 03/15/2021. This is likely symptoms are remaining from coronavirus. She'll be discharged home to continue her albuterol, increase fluid intake and follow-up with her primary care doctor. Return to the emergency room with any new or concerning symptoms. Disposition Clinical Impression: URI (upper respiratory infection) Disposition: HOME SELF-CARE Condition: Good Instructions (If sedation given, give patient instructions): Upper Respiratory Infection (ED) Additional Instructions: Continue using the albuterol as prescribed. You can take vitamin C, vitamin D and zinc daily to improve immune health. Increase your fluid intake. Follow-up with your primary care doctor in 1 week. Is patient prescribed a controlled substance at d/c from ED?: No Referrals: Felipa Mesa MD [Primary Care Provider] - 1-2 days Time of Disposition: 19:56
[2021-03-26] MEDS ORDERED: IBUPROFEN 800 MG TAB PO STA (19:32)
--- NOTE | 2021-03-26 19:47 | XR ---
EXAMINATION TYPE: XR chest 2V DATE OF EXAM: 03/26/2021 COMPARISON: 03/15/2021 HISTORY: Cough and short of breath TECHNIQUE: 2 views FINDINGS: Heart and mediastinum are normal. Lungs are clear. Diaphragm is normal. Bony thorax is inta ct. IMPRESSION: Normal chest. No change.
== END 2021-03-26 20:27 | disposition home or self-care (01) ==
LOC: EC 17:58
DX: J06.9 Acute upper respiratory infection, unspecified (principal); I10 Essential (primary) hypertension; J45.909 Unspecified asthma, uncomplicated; R10.9 Unspecified abdominal pain; Z88.8 Allergy status to other drugs, medicaments and biological substances; Z86.16 Personal history of COVID-19; Z91.09 Other allergy status, other than to drugs and biological substances; Z91.030 Bee allergy status
CPT/HCPCS: 71046; 99284

== ENCOUNTER 2021-12-05 17:25 | Emergency (ER) | payer OTHER ==
[2021-12-05] MEDS ORDERED: IBUPROFEN 600 MG TAB PO STA (18:26)
--- NOTE | 2021-12-05 19:29 | ED ---
General Adult HPI - General Chief complaint: Fever Stated complaint: Cough Time Seen by Provider: 12/05/21 18:07 Source: patient Mode of arrival: ambulatory - History of Present Illness Initial comments: Patient is a 26-year-old female presenting with chief complaint of cough. Cough is been ongoing for the last several days, nonproductive. Patient admits to occasional chills, she has not taken her temperature but believes she has a fever. No sore throat, chest pain, shortness of breath, abdominal pain, nausea, vomiting, ear pain. Patient admits to some right-sided jaw pain, she has known dental caries to this area. No difficulty swallowing or breathing. - Related Data Previous Rx's Medication Instructions Recorded Fluticasone Nasal [place] [Flonase 1 spray EA NOSTRIL DAILY #16 gm 07/24/21 Nasal [place]] Amoxic-Pot Clav 875-125Mg 1 tab PO Q12HR 10 Days #20 tab 10/29/21 [Augmentin 875-125] Amoxic-Pot Clav 875-125Mg 1 tab PO Q12HR 7 Days #14 tab 12/05/21 [Augmentin 875-125] Ibuprofen [Motrin] 400 mg PO Q6HR PRN #30 tab 12/06/21 Allergies Allergy/AdvReac Type Severity Reaction Status Date / Time adhesive tape Allergy Rash/Hives Verified 12/05/21 17:46 prednisone Allergy Swelling Verified 12/05/21 17:46 venom-honey bee Allergy Anaphylaxis Verified 12/05/21 17:46 [bee venom (honey bee)] Review of Systems ROS Statement: Those systems with pertinent positive or pertinent negative responses have been documented in the HPI. ROS Other: All systems not noted in ROS Statement are negative. Past Medical History Past Medical History: Asthma, Hypertension Additional Past Medical History / Comment(s): gestational diabetes Covid 05/26 History of Any Multi-Drug Resistant Organisms: MRSA Date of last positivie culture/infection: 2014 MDRO Source:: Skin Past Surgical History: Section, Cholecystectomy Past Anesthesia/Blood Transfusion Reactions: Postoperative Nausea & Vomiting (PONV) Past Psychological History: Anxiety, Bipolar, Panic Disorder Smoking Status: Never smoker Past Alcohol Use History: None Reported Past Drug Use History: None Reported - Past Family History Mother Family Medical History: No Reported History General Exam Limitations: no limitations General appearance: alert, in no apparent distress Head exam: Present: atraumatic, normocephalic, normal inspection Eye exam: Present: normal appearance, PERRL, EOMI. Absent: scleral icterus, conjunctival injection, periorbital swelling ENT exam: Present: mucous membranes moist, TM's normal bilaterally Expanded Mouth exam: Present: tongue normal. Absent: drooling, trismus, muffled voice Teeth exam: Present: dental caries, other (R sided jaw tenderness) Neck exam: Present: normal inspection Respiratory exam: Present: normal lung sounds bilaterally. Absent: respiratory distress, wheezes, rales, rhonchi, stridor Cardiovascular Exam: Present: regular rate, normal rhythm, normal heart sounds. Absent: systolic murmur, diastolic murmur, rubs, gallop, clicks Neurological exam: Present: alert, oriented X3, CN II-XII intact Psychiatric exam: Present: normal affect, normal mood Skin exam: Present: warm, dry, intact, normal color. Absent: rash Course Vital Signs 12/05/21 12/05/21 12/05/21 17:44 18:10 20:53 Temperature 98.0 F 98.5 F Pulse Rate 68 83 Respiratory 18 20 18 Rate Blood Pressure 152/102 141/87 O2 Sat by Pulse 99 96 Oximetry Medical Decision Making - Medical Decision Making Patient is a 26-year-old female presenting with chief complaint of cough. She states family members at home are sick and wants to be tested for Covid. She is also complaining of some right-sided jaw tenderness, patient has known dental caries. On examination heart and lungs are clear to auscultation, there is some tenderness to the right side of the jaw, no noticeable swelling or gumline enlargement, remainder of HEENT exam is unremarkable. Patient is negative for Covid and influenza. She will receive treatment for potential dental abscess and instructed to follow-up with her dentist. Educated on supportive treatment for viral infection. Follow-up with PCP. Report back to ER with any new or worsening symptoms. Discussed return parameters and answered all questions. Patient conveyed verbal understanding and agreed to the plan. I discussed this case in detail with my attending Dr. Arita. - Lab Data Lab Results 12/05/21 12/05/21 Range/Units 18:20 18:25 Coronavirus (PCR) Not Detected (Not Detectd) Influenza Type A RNA Not Detected (Not Detectd) Influenza Type B (PCR) Not Detected (Not Detectd) Disposition Clinical Impression: URI (upper respiratory infection), Dental abscess Disposition: HOME SELF-CARE Condition: Good Instructions (If sedation given, give patient instructions): Dental Abscess (ED), Upper Respiratory Infection (ED) Additional Instructions: Follow-up with PCP and dentist. Report back to ER with any new or worsening symptoms. Take medication as prescribed. Take Motrin and Tylenol as needed for pain control. Prescriptions: Amoxic-Pot Clav 875-125Mg [Augmentin 875-125] 1 tab PO Q12HR 7 Days #14 tab Ibuprofen [Motrin] 400 mg PO Q6HR PRN #30 tab PRN Reason: Pain Is patient prescribed a controlled substance at d/c from ED?: No Referrals: Felipa Mesa MD [Primary Care Provider] - 1-2 days Time of Disposition: 20:13
[2021-12-05] MEDS ORDERED: AMOXIC-POT CLAV 875-125MG 1 EACH TAB PO STA (20:10)
[2021-12-05 21:07] VITALS: BP 141/87; PULSE 83; RESP 18; TEMP 98.5
== END 2021-12-05 20:55 | disposition home or self-care (01) ==
LOC: EC 17:25
DX: J06.9 Acute upper respiratory infection, unspecified (principal); K04.7 Periapical abscess without sinus; I10 Essential (primary) hypertension; J45.909 Unspecified asthma, uncomplicated; Z90.49 Acquired absence of other specified parts of digestive tract; Z86.16 Personal history of COVID-19; Z91.030 Bee allergy status; Z88.8 Allergy status to other drugs, medicaments and biological substances; Z91.048 Other nonmedicinal substance allergy status; Z20.822 Contact with and (suspected) exposure to COVID-19; Z79.899 Other long term (current) drug therapy
CPT/HCPCS: 87502; 87635; 99283

== ENCOUNTER 2022-02-21 09:40 | Emergency (ER) | payer OTHER ==
[2022-02-21 09:52] VITALS: TEMP 100.5
[2022-02-21] MEDS ORDERED: SODIUM CHLORIDE 0.9% 1,000 ML IV STA ×2 (10:00)
[2022-02-21] MEDS ORDERED: ACETAMINOPHEN TAB 500 MG TAB PO STA (10:01)
[2022-02-21 10:14] LABS: Basophils % (A) 0 %; Eosinophils % (A) 1 %; HCT 38.8 % (34.0-46.0); Lymphocytes # (A) 0.5 k/uL (1.0-4.8); Lymphocytes % (A) 8 %; MCHC 33.4 g/dL (31.0-37.0); MCV 83.7 fL (80.0-100.0); Mean Platelet Volume 8.3; Monocytes # (A) 0.2 k/uL (0-1.0); Monocytes % (A) 3 %; Neutrophils # (A) 5.9 k/uL (1.3-7.7); Neutrophils % (A) 87 %; Platelet Count 202 k/uL (150-450); RBC 4.64 m/uL (3.80-5.40); RDW 13.5 % (11.5-15.5); WBC 6.8 k/uL (3.8-10.6)
[2022-02-21 10:18] LABS: Appearance,Urine Clear (Clear); Bilirubin,Urine Negative (Negative); Blood,Urine Negative (Negative); Color,Urine Yellow; Glucose,Urine (UA) Trace (Negative); Ketones,Urine Negative (Negative); Leukocyte Esterase,Urine Negative (Negative); Nitrite,Urine Negative (Negative); Protein,Urine Negative (Negative); Urobilinogen,Urine <2.0 mg/dL (<2.0)
[2022-02-21 10:23] LABS: ALT 25 U/L (4-34); AST 26 U/L (14-36); African American GFR (CKD) >90 (>60 ml/min/1.73 sqM); Alkaline Phosphatase 82 U/L (38-126); Anion Gap 6 mmol/L; Blood Urea Nitrogen 11 mg/dL (7-17); Calcium 8.5 mg/dL (8.4-10.2); Carbon Dioxide 24 mmol/L (22-30); Chloride 109 mmol/L (98-107); Glucose 181 mg/dL (74-99); INR 0.9 (<1.2); Magnesium 1.5 mg/dL (1.6-2.3); Non-African American GFR(CKD) >90 (>60 ml/min/1.73 sqM); Partial Thromboplastin Time 22.8 sec (22.0-30.0); Potassium 3.6 mmol/L (3.5-5.1); Sodium 139 mmol/L (137-145); Total Bilirubin 0.6 mg/dL (0.2-1.3); Total Protein 6.5 g/dL (6.3-8.2)
--- NOTE | 2022-02-21 10:47 | XR ---
EXAMINATION TYPE: XR chest 2V DATE OF EXAM: 02/21/2022 10:37 AM COMPARISON: Chest radiographs from 03/26/2021 TECHNIQUE: XR chest 2V Frontal and lateral views of the chest. CLINICAL INDICATION:Female, 26 years old with history of Chest Pain; FINDINGS: Lungs/Pleura: There is no evidence of pleural effusion, focal consolidation, or pneumothorax. Pulmonary vascularity: Unremarkable. Heart/mediastinum: Cardiomediastinal silhouette is unremarkable. Musculoskeletal: No acute osseous pathology. IMPRESSION: No acute cardiopulmonary disease/process.
[2022-02-21 10:58] VITALS: PULSE 110
[2022-02-21] MEDS ORDERED: IBUPROFEN 600 MG TAB PO STA (11:02)
[2022-02-21] MEDS ORDERED: MAGNESIUM SULFATE-D5W PMX 1 GM in DEXTROSE/WATER 1 100ML.BAG IVPB ONE (11:03)
--- NOTE | 2022-02-21 11:21 | ED ---
Chest Pain HPI - General Chief Complaint: Chest Pain Stated Complaint: Chest pain,SOB Time Seen by Provider: 02/21/22 09:52 Source: EMS Mode of arrival: EMS Limitations: no limitations - History of Present Illness Initial Comments: Patient is a 26-year-old female presenting with chief complaint of lightheadedness. Patient states that when she was showering today she felt lightheaded. She admits to cough and a sensation of a heaviness in her chest. She states that her daughter is currently ill with similar symptoms. She admits to fatigue and body aches. Admits to chills, has not taken her temperature. No abdominal pain, nausea, vomiting, rash, neck pain or stiffness, vision or hearing changes, syncope, palpitations. - Related Data Previous Rx's Medication Instructions Recorded Fluticasone Nasal [place] [Flonase 1 spray EA NOSTRIL DAILY #16 gm 07/24/21 Nasal [place]] Ibuprofen [Motrin] 400 mg PO Q6HR PRN #30 tab 12/06/21 Acetaminophen [Tylenol] 2 capsule PO Q4-6H PRN #30 capsule 02/21/22 Benzonatate [Tessalon Perles] 100 mg PO TID PRN #10 capsule 02/21/22 Oseltamivir [Tamiflu] 75 mg PO Q12HR #9 cap 02/22/22 Allergies Allergy/AdvReac Type Severity Reaction Status Date / Time adhesive tape Allergy Rash/Hives Verified 02/21/22 09:52 prednisone Allergy Swelling Verified 02/21/22 09:52 venom-honey bee Allergy Anaphylaxis Verified 02/21/22 09:52 [bee venom (honey bee)] Review of Systems ROS Statement: Those systems with pertinent positive or pertinent negative responses have been documented in the HPI. ROS Other: All systems not noted in ROS Statement are negative. Past Medical History Past Medical History: Asthma, Hypertension Additional Past Medical History / Comment(s): gestational diabetes Covid 05/26 History of Any Multi-Drug Resistant Organisms: MRSA Date of last positivie culture/infection: 2014 MDRO Source:: Skin Past Surgical History: Section, Cholecystectomy Past Anesthesia/Blood Transfusion Reactions: Postoperative Nausea & Vomiting (PONV) Past Psychological History: Anxiety, Bipolar, Panic Disorder Smoking Status: Never smoker Past Alcohol Use History: None Reported Past Drug Use History: None Reported - Past Family History Mother Family Medical History: No Reported History General Exam Limitations: no limitations General appearance: alert, in no apparent distress Head exam: Present: atraumatic, normocephalic, normal inspection Eye exam: Present: normal appearance, PERRL, EOMI. Absent: scleral icterus, conjunctival injection, periorbital swelling ENT exam: Present: mucous membranes moist Neck exam: Present: normal inspection, full ROM Respiratory exam: Present: normal lung sounds bilaterally. Absent: respiratory distress, wheezes, rales, rhonchi, stridor Cardiovascular Exam: Present: regular rate, normal rhythm, normal heart sounds. Absent: systolic murmur, diastolic murmur, rubs, gallop, clicks Neurological exam: Present: alert, oriented X3, CN II-XII intact Psychiatric exam: Present: normal affect, normal mood Skin exam: Present: warm, dry, intact, normal color. Absent: rash Course Vital Signs 02/21/22 02/21/22 02/21/22 09:48 09:57 10:56 Temperature 100.5 F H Pulse Rate 125 H 120 H 110 H Respiratory 20 16 24 Rate Blood Pressure 141/90 141/90 O2 Sat by Pulse 99 97 100 Oximetry 02/21/22 12:17 Temperature Pulse Rate 110 H Respiratory 18 Rate Blood Pressure 146/53 O2 Sat by Pulse 96 Oximetry Chest Pain [facility] Patient is a 26-year-old female presenting with chief complaint of lightheadedness, body aches, fatigue, cough, chest heaviness. On physical examination heart and lungs are clear to auscultation. Patient is febrile and tachycardic, given Motrin and Tylenol. CBC shows no leukocytosis or anemia. Magnesium is 1.5, will give 1 g of magnesium sulfate. Urine shows trace glucose hCG is negative. EKG shows no ischemic changes troponin is less than 0.012. Patient tested positive for influenza A. Chest x-ray shows no acute cardiopulmonary process. Patient is educated on supportive treatment. Follow-up with PCP. Report back to ER with any new or worsening symptoms. Discussed return parameters and answered all questions. Patient conveyed verbal understanding and agreed to the plan. I discussed this case in detail with my attending Dr. Nobles Disposition Clinical Impression: Influenza A Disposition: HOME SELF-CARE Condition: Good Instructions (If sedation given, give patient instructions): Influenza (ED) Additional Instructions: Follow-up with PCP. Report back to ER if any new or worsening symptoms. Alternate Motrin and Tylenol as needed for pain and fever control. Take medication as prescribed. Stay well-hydrated and get plenty of rest. Prescriptions: Benzonatate [Tessalon Perles] 100 mg PO TID PRN #10 capsule PRN Reason: Cough Acetaminophen [Tylenol] 2 capsule PO Q4-6H PRN #30 capsule PRN Reason: Fever Is patient prescribed a controlled substance at d/c from ED?: No Referrals: Felipa Mesa MD [Primary Care Provider] - 1-2 days Time of Disposition: 11:21
[2022-02-21 12:18] VITALS: BP 146/53; RESP 18
== END 2022-02-21 12:18 | disposition home or self-care (01) ==
LOC: EC 09:40
DX: J10.1 Influenza due to other identified influenza virus with other respiratory manifestations (principal); J45.909 Unspecified asthma, uncomplicated; I10 Essential (primary) hypertension; F41.9 Anxiety disorder, unspecified; F31.9 Bipolar disorder, unspecified; Z91.048 Other nonmedicinal substance allergy status; Z91.030 Bee allergy status; Z88.8 Allergy status to other drugs, medicaments and biological substances; Z20.822 Contact with and (suspected) exposure to COVID-19
CPT/HCPCS: 36415; 93005; 80053; 83735; 84484; 85025; 85610; 85730; 81003; 81025; 87636; 71046; 99285; 96365; J3475

== ENCOUNTER 2022-02-21 21:36 | Observation (INO) | payer OTHER ==
[2022-02-21] MEDS ORDERED: SODIUM CHLORIDE 0.9% 500 ML 500 ML IV STA (22:27)
[2022-02-21] MEDS ORDERED: DEXAMETHASONE SOD PHOSPHATE 10 MG/ML 1 ML VIAL IVP STA (22:27)
[2022-02-21] MEDS ORDERED: MORPHINE SULFATE 2 MG/ML SYRINGE IVP STA (22:27)
[2022-02-21] MEDS ORDERED: SODIUM CHLORIDE 0.9% 1,000 ML IV STA (22:27)
[2022-02-21] MEDS ORDERED: ONDANSETRON 4 MG/2 ML VIAL IVP STA (22:27)
[2022-02-21] MEDS ORDERED: KETOROLAC 15 MG/ML 1 ML VIAL IVP STA (22:27)
[2022-02-21] MEDS ORDERED: ACETAMINOPHEN IV (For NPO) 1,000 MG in EMPTY BAG 1 BAG IVPB STA (22:27)
--- NOTE | 2022-02-21 22:28 | ED ---
Recheck HPI - General Chief Complaint: Recheck/Abnormal Lab/Rx Stated Complaint: Revisit-influenza A Time Seen by Provider: 02/21/22 22:22 Source: patient, RN notes reviewed, old records reviewed Mode of arrival: ambulatory Limitations: no limitations - History of Present Illness MD Complaint: wound re-check, abnormal lab -: days(s) Returns Today for: persistent/worsening pain related to initial visit Symptoms Since Prior Visit: worsening pain Context: planned re-check, called for abnormal lab result Associated Symptoms: fever, chills Treatments Prior to Arrival: other medications - Related Data Previous Rx's Medication Instructions Recorded Fluticasone Nasal [place] [Flonase 1 spray EA NOSTRIL DAILY #16 gm 07/24/21 Nasal [place]] Amoxic-Pot Clav 875-125Mg 1 tab PO Q12HR 10 Days #20 tab 10/29/21 [Augmentin 875-125] Amoxic-Pot Clav 875-125Mg 1 tab PO Q12HR 7 Days #14 tab 12/05/21 [Augmentin 875-125] Ibuprofen [Motrin] 400 mg PO Q6HR PRN #30 tab 12/06/21 Acetaminophen [Tylenol] 2 capsule PO Q4-6H PRN #30 capsule 02/21/22 Benzonatate [Tessalon Perles] 100 mg PO TID PRN #10 capsule 02/21/22 Ibuprofen [Motrin] 400 mg PO Q6HR PRN #30 tab 02/21/22 Allergies Allergy/AdvReac Type Severity Reaction Status Date / Time adhesive tape Allergy Rash/Hives Verified 02/21/22 09:52 prednisone Allergy Swelling Verified 02/21/22 09:52 venom-honey bee Allergy Anaphylaxis Verified 02/21/22 09:52 [bee venom (honey bee)] Review of Systems ROS Statement: Those systems with pertinent positive or pertinent negative responses have been documented in the HPI. ROS Other: All systems not noted in ROS Statement are negative. Past Medical History Past Medical History: Asthma, Hypertension Additional Past Medical History / Comment(s): gestational diabetes Covid 05/26 History of Any Multi-Drug Resistant Organisms: MRSA Date of last positivie culture/infection: 2014 MDRO Source:: Skin Past Surgical History: Section, Cholecystectomy Past Anesthesia/Blood Transfusion Reactions: Postoperative Nausea & Vomiting (PONV) Past Psychological History: Anxiety, Bipolar, Panic Disorder Smoking Status: Never smoker Past Alcohol Use History: None Reported Past Drug Use History: None Reported - Past Family History Mother Family Medical History: No Reported History General Exam Limitations: no limitations General appearance: alert, in no apparent distress Head exam: Present: atraumatic, normocephalic, normal inspection Eye exam: Present: normal appearance, PERRL, EOMI. Absent: scleral icterus, conjunctival injection, periorbital swelling ENT exam: Present: normal exam, mucous membranes moist Neck exam: Present: normal inspection. Absent: tenderness, meningismus, lymphadenopathy Respiratory exam: Present: normal lung sounds bilaterally. Absent: respiratory distress, wheezes, rales, rhonchi, stridor Cardiovascular Exam: Present: regular rate, normal rhythm, normal heart sounds. Absent: systolic murmur, diastolic murmur, rubs, gallop, clicks GI/Abdominal exam: Present: soft, normal bowel sounds. Absent: distended, tenderness, guarding, rebound, rigid Extremities exam: Present: normal inspection, full ROM, normal capillary refill. Absent: tenderness, pedal edema, joint swelling, calf tenderness Back exam: Present: normal inspection Neurological exam: Present: alert, oriented X3, CN II-XII intact Psychiatric exam: Present: normal affect, normal mood Skin exam: Present: warm, dry, intact, normal color. Absent: rash Course Vital Signs 02/21/22 02/22/22 02/22/22 22:07 00:20 00:34 Temperature 100.6 F H 101.2 F H Pulse Rate 122 H 92 97 Respiratory 20 15 15 Rate Blood Pressure 154/85 138/74 122/68 O2 Sat by Pulse 97 100 97 Oximetry Medical Decision Making - Lab Data Result diagrams: 02/21/22 23:14 02/21/22 23:14 Lab Results 02/21/22 02/21/22 Range/Units 23:14 23:14 WBC 4.5 (3.8-10.6) k/uL RBC 4.29 (3.80-5.40) m/uL Hgb 12.6 (11.4-16.0) gm/dL Hct 35.9 (34.0-46.0) % MCV 83.7 (80.0-100.0) fL MCH 29.4 (25.0-35.0) pg MCHC 35.1 (31.0-37.0) g/dL RDW 13.4 (11.5-15.5) % Plt Count 161 (150-450) k/uL MPV 8.3 Neutrophils % 86 % Lymphocytes % 7 % Monocytes % 5 % Eosinophils % 1 % Basophils % 0 % Neutrophils # 3.9 (1.3-7.7) k/uL Lymphocytes # 0.3 L (1.0-4.8) k/uL Monocytes # 0.2 (0-1.0) k/uL Eosinophils # 0.0 (0-0.7) k/uL Basophils # 0.0 (0-0.2) k/uL Sodium 137 (137-145) mmol/L Potassium 3.5 (3.5-5.1) mmol/L Chloride 109 H (98-107) mmol/L Carbon Dioxide 21 L (22-30) mmol/L Anion Gap 7 mmol/L BUN 6 L (7-17) mg/dL Creatinine 0.60 (0.52-1.04) mg/dL Est GFR (CKD-EPI)AfAm >90 (>60 ml/min/1.73 sqM) Est GFR (CKD-EPI)NonAf >90 (>60 ml/min/1.73 sqM) Glucose 121 H (74-99) mg/dL Calcium 8.1 L (8.4-10.2) mg/dL Phosphorus 1.5 L (2.5-4.5) mg/dL Magnesium 1.6 (1.6-2.3) mg/dL Total Bilirubin 0.6 (0.2-1.3) mg/dL AST 37 H (14-36) U/L ALT 30 (4-34) U/L Alkaline Phosphatase 73 (38-126) U/L Total Protein 6.0 L (6.3-8.2) g/dL Albumin 3.6 (3.5-5.0) g/dL Disposition Clinical Impression: Influenza A, Fever, Weak Disposition: ADMITTED IP TO THIS HOSP Condition: Fair Is patient prescribed a controlled substance at d/c from ED?: No Referrals: Felipa Mesa MD [Primary Care Provider] - 1-2 days Time of Disposition: 00:45
[2022-02-21 23:30] LABS: Basophils % (A) 0 %; Eosinophils % (A) 1 %; HCT 35.9 % (34.0-46.0); HGB 12.6 gm/dL (11.4-16.0); Lymphocytes # (A) 0.3 k/uL (1.0-4.8); Lymphocytes % (A) 7 %; MCH 29.4 pg (25.0-35.0); MCHC 35.1 g/dL (31.0-37.0); MCV 83.7 fL (80.0-100.0); Mean Platelet Volume 8.3; Monocytes # (A) 0.2 k/uL (0-1.0); Monocytes % (A) 5 %; Neutrophils # (A) 3.9 k/uL (1.3-7.7); Neutrophils % (A) 86 %; Platelet Count 161 k/uL (150-450); RBC 4.29 m/uL (3.80-5.40); RDW 13.4 % (11.5-15.5); WBC 4.5 k/uL (3.8-10.6)
--- NOTE | 2022-02-21 23:48 | XR ---
EXAMINATION TYPE: XR chest 1V portable DATE OF EXAM: 02/21/2022 COMPARISON: Today HISTORY: Chest pain TECHNIQUE: Single view FINDINGS: Heart and mediastinum are normal. Lungs are clear. Diaphragm is normal. Bony thorax is inta ct IMPRESSION: Normal chest. No change.
[2022-02-21 23:51] LABS: ALT 30 U/L (4-34); AST 37 U/L (14-36); African American GFR (CKD) >90 (>60 ml/min/1.73 sqM); Albumin 3.6 g/dL (3.5-5.0); Alkaline Phosphatase 73 U/L (38-126); Anion Gap 7 mmol/L; Blood Urea Nitrogen 6 mg/dL (7-17); Calcium 8.1 mg/dL (8.4-10.2); Carbon Dioxide 21 mmol/L (22-30); Chloride 109 mmol/L (98-107); Glucose 121 mg/dL (74-99); Magnesium 1.6 mg/dL (1.6-2.3); Non-African American GFR(CKD) >90 (>60 ml/min/1.73 sqM); Phosphorus 1.5 mg/dL (2.5-4.5); Potassium 3.5 mmol/L (3.5-5.1); Sodium 137 mmol/L (137-145); Total Bilirubin 0.6 mg/dL (0.2-1.3)
[2022-02-22] MEDS ORDERED: MORPHINE SULFATE 4 MG/ML SYRINGE IV PRN (00:38)
[2022-02-22] MEDS ORDERED: IBUPROFEN 400 MG TAB PO PRN (00:38)
[2022-02-22] MEDS ORDERED: KETOROLAC 15 MG/ML 1 ML VIAL IVP PRN (00:38)
[2022-02-22] MEDS ORDERED: ONDANSETRON 4 MG/2 ML VIAL IVP PRN (00:38)
[2022-02-22] MEDS ORDERED: ACETAMINOPHEN TAB 325 MG TAB PO PRN (00:38)
[2022-02-22] MEDS ORDERED: NALOXONE 0.4 MG/ML 1 ML VIAL IV PRN (00:38)
[2022-02-22] MEDS ORDERED: OSELTAMIVIR 75 MG CAP PO STA (00:48)
--- NOTE | 2022-02-22 02:21 | P.HPIM ---
History of Present Illness H&P Date: 02/22/22 The patient is a 26-year-old female with no known PMH who presents to the emergency room with complaints of body aches, headache, chest tightness, and dizziness. Patient reports that her symptoms started roughly 30 hours ago and came on suddenly. She was seen in the emergency room earlier today and was diagnosed with influenza type A and was sent home and advised to alternate Motrin and Tylenol. The patient returns to the emergency room stating that she attempted to the above medications without much relief. In the emergency room, the patient's T-max was 101.2 with pulse 122, BP 154/85, and SpO2 97% on room air. At time of interview, she reports that her symptoms have significantly improved and she currently only reported a 2 out of 10 mild headache. Report that she only had a mild chest discomfort which resolved with antipyretics in the emergency room. Denied experiencing cough. Chest x-ray in the emergency room was unremarkable with EKG showing sinus tachycardia 120 bpm. Review of systems: Pertinent positives and negatives as discussed in HPI, a complete review of systems was performed and all other systems are negative. Physical examination: General: non toxic, no distress, appears at stated age, obese Derm: no unusual rashes/lesions, warm Head: atraumatic, normocephalic, symmetric Eyes: EOMI, no lid lag, anicteric sclera, pupils equal round reactive to light ENT: Nose and ears atraumatic Neck: No cervical lymphadenopathy, trachea midline, supple Mouth: no lip lesion, mucus membranes moist Cardiovascular: S1S2 reg, no murmur, positive dorsalis pedis pulse bilateral, no edema Lungs: CTA bilateral, no rhonchi, no rales, no accessory muscle use Abdominal: soft, nontender to palpation, no guarding Ext: muscle strength 5 out of 5 in all 4 extremities grossly, no gross muscle atrophy, no contractures, Neuro: CN II-XI grossly intact, no gross focal neuro deficits Psych: Alert, oriented, appropriate affect Assessment/plan Influenza type A infection -Continue with Tamiflu -IV fluids -Antipyretics DVT prophylaxis -Heparin subcu The patient is admitted with an anticipated less than 2 midnight stay for evaluation of flu type A CODE STATUS: Full Code Discussed with: Patient Anticipated discharge date: in am Anticipated discharge place: Home Past Medical History Past Medical History: Asthma, Hypertension Additional Past Medical History / Comment(s): gestational diabetes Covid 3 History of Any Multi-Drug Resistant Organisms: MRSA Date of last positivie culture/infection: 2014 MDRO Source:: Skin Past Surgical History: Section, Cholecystectomy Past Anesthesia/Blood Transfusion Reactions: Postoperative Nausea & Vomiting (PONV) Past Psychological History: Anxiety, Bipolar, Panic Disorder Smoking Status: Never smoker Past Alcohol Use History: None Reported Past Drug Use History: None Reported - Past Family History Mother Additional Family Medical History / Comment(s): Patient does not recall any significant family history Medications and Allergies Home Medications Medication Instructions Recorded Confirmed Type Fluticasone Nasal [place] [Flonase 1 spray EA NOSTRIL DAILY #16 gm 07/24/21 Rx Nasal [place]] Amoxic-Pot Clav 875-125Mg 1 tab PO Q12HR 10 Days #20 tab 10/29/21 Rx [Augmentin 875-125] Amoxic-Pot Clav 875-125Mg 1 tab PO Q12HR 7 Days #14 tab 12/05/21 Rx [Augmentin 875-125] Ibuprofen [Motrin] 400 mg PO Q6HR PRN #30 tab 12/06/21 Rx Acetaminophen [Tylenol] 2 capsule PO Q4-6H PRN #30 capsule 02/21/22 Rx Benzonatate [Tessalon Perles] 100 mg PO TID PRN #10 capsule 02/21/22 Rx Ibuprofen [Motrin] 400 mg PO Q6HR PRN #30 tab 02/21/22 Rx Allergies Allergy/AdvReac Type Severity Reaction Status Date / Time adhesive tape Allergy Rash/Hives Verified 02/21/22 09:52 prednisone Allergy Swelling Verified 02/21/22 09:52 venom-honey bee Allergy Anaphylaxis Verified 02/21/22 09:52 [bee venom (honey bee)] Physical Exam Vitals: Vital Signs Temp Pulse Resp BP Pulse Ox 02/22/22 01:43 98.5 F 02/22/22 00:34 101.2 F H 97 15 122/68 97 02/22/22 00:20 92 15 138/74 100 02/21/22 22:07 100.6 F H 122 H 20 154/85 97 Intake and Output 02/21/22 02/21/22 02/22/22 14:59 22:59 06:59 Other: Weight 108.862 kg Results CBC & Chem 7: 02/21/22 23:14 02/21/22 23:14 Labs: Abnormal Lab Results - Last 24 Hours (Table) 02/21/22 02/21/22 Range/Units 23:14 23:14 Lymphocytes # 0.3 L (1.0-4.8) k/uL Chloride 109 H (98-107) mmol/L Carbon Dioxide 21 L (22-30) mmol/L BUN 6 L (7-17) mg/dL Glucose 121 H (74-99) mg/dL Calcium 8.1 L (8.4-10.2) mg/dL Phosphorus 1.5 L (2.5-4.5) mg/dL AST 37 H (14-36) U/L Total Protein 6.0 L (6.3-8.2) g/dL
[2022-02-22] MEDS: SODIUM CHLORIDE 0.9% 1,000 ML IV SCH ×2 (03:50→08:30)
[2022-02-22] MEDS ORDERED: HEPARIN SODIUM,PORCINE/PF 5,000 UNIT/0.5 ML SYRINGE SQ SCH (08:00)
--- NOTE | 2022-02-22 08:03 | P.DS ---
Providers Date of admission: 02/22/22 00:38 Attending physician: Carito Campoverde MD Primary care physician: [facility] Course: Discharge diagnosis Influenza A Discharge summary The patient is a 26-year-old female with no known PMH who presents to the emergency room with complaints of body aches, headache, chest tightness, and dizziness. Patient reports that her symptoms started roughly 30 hours ago and came on suddenly. She was seen in the emergency room earlier today and was diagnosed with influenza type A and was sent home and advised to alternate Motrin and Tylenol. The patient returns to the emergency room stating that she attempted to the above medications without much relief. In the emergency room, the patient's T-max was 101.2 with pulse 122, BP 154/85, and SpO2 97% on room air. At time of interview, she reports that her symptoms have significantly improved and she currently only reported a 2 out of 10 mild headache. Report that she only had a mild chest discomfort which resolved with antipyretics in the emergency room. Denied experiencing cough. Chest x-ray in the emergency room was unremarkable with EKG showing sinus tachycardia 120 bpm. Patient was re-evaluated in the morning and patient reported that she was feeling better and is ready to go home. Patient will be discharged on tamilfu to complete the course. PE General examination - Alert and Oriented 3 in NAD Heart - + S1S2 no murmurs Lungs - Clear to auscultation Abdomen soft NT ND +ve BS Extremities - No edema [employer] - Moving all 4 extremities spontaneously Psych - Calm and cooperative Patient Condition at Discharge: Fair Plan - Discharge Summary Discharge Rx Participant: No New Discharge Prescriptions: New Oseltamivir [Tamiflu] 75 mg PO Q12HR #9 cap Continue Ibuprofen [Motrin] 400 mg PO Q6HR PRN #30 tab PRN Reason: Pain Benzonatate [Tessalon Perles] 100 mg PO TID PRN #10 capsule PRN Reason: Cough Acetaminophen [Tylenol] 2 capsule PO Q4-6H PRN #30 capsule PRN Reason: Fever Fluticasone Nasal [place] [Flonase Nasal [place]] 1 spray EA NOSTRIL DAILY #16 gm Discontinued Amoxic-Pot Clav 875-125Mg [Augmentin 875-125] 1 tab PO Q12HR 10 Days #20 tab Amoxic-Pot Clav 875-125Mg [Augmentin 875-125] 1 tab PO Q12HR 7 Days #14 tab Ibuprofen [Motrin] 400 mg PO Q6HR PRN #30 tab PRN Reason: Fever Discharge Medication List Fluticasone Nasal [place] [Flonase Nasal [place]] 1 spray EA NOSTRIL DAILY #16 gm 07/24/21 [Rx] Ibuprofen [Motrin] 400 mg PO Q6HR PRN #30 tab 12/06/21 [Rx] Acetaminophen [Tylenol] 2 capsule PO Q4-6H PRN #30 capsule 02/21/22 [Rx] Benzonatate [Tessalon Perles] 100 mg PO TID PRN #10 capsule 02/21/22 [Rx] Oseltamivir [Tamiflu] 75 mg PO Q12HR #9 cap 02/22/22 [Rx] Follow up Appointment(s)/Referral(s): Felipa Mesa MD [Primary Care Provider] - 1-2 days Discharge Disposition: HOME SELF-CARE
[2022-02-22 08:18] VITALS: BP 114/78; PULSE 88; RESP 14; TEMP 98.3
[2022-02-22] MEDS ORDERED: OSELTAMIVIR 75 MG CAP PO SCH (12:00)
== END 2022-02-22 12:07 | disposition home or self-care (01) ==
LOC: EC 21:36 → 6NMEDSUR 02-22 00:38
PROVIDERS: ADMIT Internal Medicine; ATTEND Internal Medicine
DX: J10.1 Influenza due to other identified influenza virus with other respiratory manifestations (principal); I10 Essential (primary) hypertension; J45.909 Unspecified asthma, uncomplicated; F41.0 Panic disorder [episodic paroxysmal anxiety]; F31.9 Bipolar disorder, unspecified; F41.9 Anxiety disorder, unspecified; R42 Dizziness and giddiness; R00.0 Tachycardia, unspecified; Z79.899 Other long term (current) drug therapy; Z91.030 Bee allergy status; Z88.8 Allergy status to other drugs, medicaments and biological substances; Z91.048 Other nonmedicinal substance allergy status; Z86.32 Personal history of gestational diabetes; Z86.16 Personal history of COVID-19; Z86.14 Personal history of Methicillin resistant Staphylococcus aureus infection; Z95.5 Presence of coronary angioplasty implant and graft; Z98.891 History of uterine scar from previous surgery
CPT/HCPCS: 96376; 96361; 96365; 96375; 99285; 36415; 80053; 83735; 84100; 85025; 71045; G0378; J2270 ×2; J1100; J2405; J0131; J1885

== ENCOUNTER 2022-03-03 06:52 | Emergency (ER) | payer OTHER ==
[2022-03-03] MEDS ORDERED: SODIUM CHLORIDE 0.9% 1,000 ML IV ONE (07:06)
[2022-03-03] MEDS ORDERED: SODIUM CHLORIDE 0.9% 500 ML 500 ML IV ONE (07:06)
--- NOTE | 2022-03-03 07:32 | ED ---
URI HPI - General Chief Complaint: Upper Respiratory Infection Stated Complaint: Flu Symptoms Time Seen by Provider: 03/03/22 06:53 Source: patient, EMS, RN notes reviewed Mode of arrival: EMS Limitations: no limitations - History of Present Illness Initial Comments: 18-year-old female presents emergency Department chief complaint cough, congestion. Patient states that she was diagnosed with influenza of recent she was hospitalized and discharged on states she stated she took Tamiflu states that symptoms seem to be getting worse. Patient denies any reported fever but states that she still having sweats. He denies any shortness breath but complains of rib pain with excessive coughing. Patient denies any prior asthma or any prior lung disease denies ear pain, sore throat. As mentioned nausea vomiting. - Related Data Previous Rx's Medication Instructions Recorded Fluticasone Nasal [place] [Flonase 1 spray EA NOSTRIL DAILY #16 gm 07/24/21 Nasal [place]] Ibuprofen [Motrin] 400 mg PO Q6HR PRN #30 tab 12/06/21 Acetaminophen [Tylenol] 2 capsule PO Q4-6H PRN #30 capsule 02/21/22 Benzonatate [Tessalon Perles] 100 mg PO TID PRN #10 capsule 02/21/22 Oseltamivir [Tamiflu] 75 mg PO Q12HR #9 cap 02/22/22 Azithromycin [Zithromax Z Pack] 0 tab PO DIRECTED #6 tab 03/03/22 guaiFENesin-DM 100-10MG/5ML 10 ml PO TID #8 oz 03/03/22 [Robitussin DM] Allergies Allergy/AdvReac Type Severity Reaction Status Date / Time adhesive tape Allergy Rash/Hives Verified 02/21/22 09:52 prednisone Allergy Swelling Verified 02/21/22 09:52 venom-honey bee Allergy Anaphylaxis Verified 02/21/22 09:52 [bee venom (honey bee)] Review of Systems ROS Statement: Those systems with pertinent positive or pertinent negative responses have been documented in the HPI. ROS Other: All systems not noted in ROS Statement are negative. Past Medical History Past Medical History: Asthma, Hypertension Additional Past Medical History / Comment(s): gestational diabetes Covid 05/26 History of Any Multi-Drug Resistant Organisms: MRSA Date of last positivie culture/infection: 2014 MDRO Source:: Skin Past Surgical History: Section, Cholecystectomy Past Anesthesia/Blood Transfusion Reactions: Postoperative Nausea & Vomiting (PONV) Past Psychological History: Anxiety, Bipolar, Panic Disorder Smoking Status: Never smoker Past Alcohol Use History: None Reported Past Drug Use History: None Reported - Past Family History Mother Family Medical History: No Reported History Additional Family Medical History / Comment(s): Patient does not recall any significant family history General Exam Limitations: no limitations General appearance: alert, in no apparent distress Head exam: Present: atraumatic, normocephalic, normal inspection Eye exam: Present: normal appearance, PERRL, EOMI. Absent: scleral icterus, conjunctival injection, periorbital swelling ENT exam: Present: normal exam, normal oropharynx, mucous membranes moist Neck exam: Present: normal inspection. Absent: tenderness, meningismus, lymphadenopathy Respiratory exam: Present: normal lung sounds bilaterally. Absent: respiratory distress, wheezes, rales, rhonchi, stridor Cardiovascular Exam: Present: normal rhythm, tachycardia, normal heart sounds. Absent: systolic murmur, diastolic murmur, rubs, gallop, clicks Neurological exam: Present: alert Skin exam: Present: warm, dry, intact, normal color. Absent: rash Course Vital Signs 03/03/22 03/03/22 06:53 07:00 Temperature 98.9 F Pulse Rate 115 H Respiratory 20 Rate Blood Pressure 142/96 O2 Sat by Pulse 95 Oximetry Medical Decision Making - Medical Decision Making Chest x-ray shows evidence of acute bronchitis. Patient no evidence of pneumonia. Patient 2 weeks out from influenza. Patient discharged in stable condition patient states that she cannot take oral steroids. Disposition Clinical Impression: Acute bronchitis Disposition: HOME SELF-CARE Condition: Stable Instructions (If sedation given, give patient instructions): Acute Bronchitis (ED) Additional Instructions: Please return to the Emergency Department if symptoms worsen or any other conc erns. Prescriptions: guaiFENesin-DM 100-10MG/5ML [Robitussin DM] 10 ml PO TID #8 oz Azithromycin [Zithromax Z Pack] 0 tab PO DIRECTED #6 tab Is patient prescribed a controlled substance at d/c from ED?: No Referrals: Felipa Mesa MD [Primary Care Provider] - 1-2 days Time of Disposition: 08:15
--- NOTE | 2022-03-03 07:34 | XR ---
EXAMINATION TYPE: XR chest 2V DATE OF EXAM: 03/03/2022 COMPARISON: 02/21/2022 HISTORY: 26-year-old female with cough and chest pressure TECHNIQUE: PA and lateral views FINDINGS: Heart normal size. Aorta and pulmonary vasculature within normal limits. Mild central peribronchial c uffing is noted. Some minimal strandy atelectasis in the lower lungs. No consolidation or pleural eff usion. IMPRESSION: Peribronchial cuffing suggests bronchitis or asthma. No focal infiltrates seen.
[2022-03-03] MEDS: guaiFENesin-Coden 100-10MG/5ML 10 ML CUP PO STA ×2 (07:53→08:03)
[2022-03-03] MEDS ORDERED: guaiFENesin-DM 100-10MG/5ML 10 ML CUP PO STA (08:00)
[2022-03-03 09:55] VITALS: BP 119/82; PULSE 98; RESP 18; TEMP 98.7
== END 2022-03-03 09:47 | disposition home or self-care (01) ==
LOC: EC 06:52
DX: J20.9 Acute bronchitis, unspecified (principal); J45.909 Unspecified asthma, uncomplicated; I10 Essential (primary) hypertension; F41.9 Anxiety disorder, unspecified; F31.9 Bipolar disorder, unspecified; Z91.048 Other nonmedicinal substance allergy status; Z88.8 Allergy status to other drugs, medicaments and biological substances; Z91.030 Bee allergy status
CPT/HCPCS: 71046; 96360; 99284

== ENCOUNTER 2022-08-28 21:58 | Emergency (ER) | payer OTHER ==
[2022-08-28] MEDS ORDERED: KETOROLAC 15 MG/ML 1 ML VIAL IVP STA (22:05)
[2022-08-28 22:06] VITALS: RESP 20
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
[2022-08-28 23:33] VITALS: BP 144/80; PULSE 98; TEMP 98.2
== END 2022-08-28 23:30 | disposition home or self-care (01) ==
LOC: EC 21:58
DX: S80.11XA Contusion of right lower leg, initial encounter (principal); M25.532 Pain in left wrist; I10 Essential (primary) hypertension; J45.909 Unspecified asthma, uncomplicated; E66.9 Obesity, unspecified; Z68.43 Body mass index [BMI] 50.0-59.9, adult; Z79.51 Long term (current) use of inhaled steroids; Z79.899 Other long term (current) drug therapy; Z91.030 Bee allergy status; Z88.8 Allergy status to other drugs, medicaments and biological substances; Z91.09 Other allergy status, other than to drugs and biological substances; Z86.16 Personal history of COVID-19; V23.49XA Other motorcycle driver injured in collision with car, pick-up truck or van in traffic accident, initial encounter; Y92.410 Unspecified street and highway as the place of occurrence of the external cause; Y93.55 Activity, bike riding
CPT/HCPCS: 72170; 73090; 73590; 71045; 99285; 96374; J1885

== ENCOUNTER 2023-01-06 20:18 | Emergency (ER) | payer BC, OTHER ==
--- NOTE | 2023-01-06 21:03 | ED ---
General Adult HPI - General Source: patient, RN notes reviewed <Mirta Buchanan - Last Filed: 01/06/23 21:02> <Ja Ordonez - Last Filed: 01/08/23 04:49> - General Stated complaint: Cough,sob Time Seen by Provider: 01/06/23 21:02 - History of Present Illness Initial comments: 27-year-old female presents to the emergency Department with chief complaint of cough, congestion. Symptoms have been going on for around 3 days. Her daughter has similar symptoms. She admits to fever, chills. (Mirta Buchanan) 27-year-old female presenting with chief complaint of URI-like symptoms. Patient has been experiencing cough and congestion for the last 3 days. Her daughter also has similar symptoms. She admits to intermittent fever and chills. She admits to vomiting. No chest pain, difficulty breathing, abdominal pain, sore throat. (Ja Ordonez) - Related Data Previous Rx's Medication Instructions Recorded Fluticasone Nasal [place] [Flonase 1 spray EA NOSTRIL DAILY #16 gm 07/24/21 Nasal [place]] Ibuprofen [Motrin] 400 mg PO Q6HR PRN #30 tab 12/06/21 Acetaminophen [Tylenol] 2 capsule PO Q4-6H PRN #30 capsule 02/21/22 Benzonatate [Tessalon Perles] 100 mg PO TID PRN #10 capsule 02/21/22 Oseltamivir [Tamiflu] 75 mg PO Q12HR #9 cap 02/22/22 Azithromycin [Zithromax Z Pack] 0 tab PO DIRECTED #6 tab 03/03/22 guaiFENesin-DM 100-10MG/5ML 10 ml PO TID #8 oz 03/03/22 [Robitussin DM] Acetaminophen Tab [Tylenol] 650 mg PO Q6H #30 tab 08/28/22 Ibuprofen [Motrin] 800 mg PO Q8H #30 tab 08/28/22 Benzonatate [Tessalon Perles] 100 mg PO TID PRN #15 capsule 01/06/23 Fluticasone Nasal [place] [Flonase 1 spray EA NOSTRIL DAILY #16 gm 01/06/23 Nasal [place]] Allergies Allergy/AdvReac Type Severity Reaction Status Date / Time adhesive tape Allergy Rash/Hives Verified 01/06/23 21:01 prednisone Allergy Swelling Verified 01/06/23 21:01 venom-honey bee Allergy Anaphylaxis Verified 01/06/23 21:01 [bee venom (honey bee)] Review of Systems ROS Other: All systems not noted in ROS Statement are negative. <Mirta Buchanan - Last Filed: 01/06/23 21:02> ROS Other: All systems not noted in ROS Statement are negative. <Ja Ordonez - Last Filed: 01/08/23 04:49> ROS Statement: Those systems with pertinent positive or pertinent negative responses have been documented in the HPI. Past Medical History Past Medical History: Asthma, Hypertension Additional Past Medical History / Comment(s): gestational diabetes Covid 05/26 History of Any Multi-Drug Resistant Organisms: MRSA Date of last positivie culture/infection: 2014 MDRO Source:: Skin Past Surgical History: Section, Cholecystectomy Past Anesthesia/Blood Transfusion Reactions: Postoperative Nausea & Vomiting (PONV) Past Psychological History: Anxiety, Bipolar, Panic Disorder Smoking Status: Never smoker Past Alcohol Use History: None Reported Past Drug Use History: None Reported - Past Family History Mother Family Medical History: No Reported History Additional Family Medical History / Comment(s): Patient does not recall any significant family history <Mirta Buchanan - Last Filed: 01/06/23 21:02> General Exam <Mirta Buchanan - Last Filed: 01/06/23 21:02> Limitations: no limitations General appearance: alert, in no apparent distress Head exam: Present: atraumatic, normocephalic, normal inspection Eye exam: Present: normal appearance, EOMI ENT exam: Present: normal oropharynx, mucous membranes moist Neck exam: Present: normal inspection, full ROM Respiratory exam: Present: normal lung sounds bilaterally. Absent: respiratory distress, wheezes, rales, rhonchi, stridor Cardiovascular Exam: Present: regular rate, normal rhythm, normal heart sounds. Absent: systolic murmur, diastolic murmur, rubs, gallop, clicks Neurological exam: Present: alert, oriented X3 Psychiatric exam: Present: normal affect, normal mood Skin exam: Present: warm, dry, intact, normal color. Absent: rash <Ja Ordonez - Last Filed: 01/08/23 04:49> - General Exam Comments Initial Comments: Visual Physical Exam Vital signs reviewed General: Well-appearing, nontoxic, no acute distress. Head: Normocephalic, atraumatic Eyes: PERRLA, EOMI ENT: Airway patent Chest: Nonlabored breathing Skin: No visual rash, normal skin tone Neuro: Alert and oriented 3 Musculoskeletal: No gross abnormalities (Mirta Buchanan) Course Vital Signs 01/06/23 01/07/23 21:02 00:55 Temperature 99 F 98.3 F Pulse Rate 104 H 110 H Respiratory 18 17 Rate Blood Pressure 125/70 109/74 O2 Sat by Pulse 96 96 Oximetry Medical Decision Making <Mirta Buchanan - Last Filed: 01/06/23 21:02> <Ja Ordonez - Last Filed: 01/08/23 04:49> - Medical Decision Making I preformed the quick note portion of this chart. Electronically signed by Mirta Buchanan PA-C (Mirta Buchanan) Was pt. sent in by a medical professional or institution (MOR Garcia, DATA SPECIALIST, urgent care, hospital, or fci...) When possible be specific @ -No Did you speak to anyone other than the patient for history (EMS, parent, family, police, friend...)? What history was obtained from this source @ -No Did you review nursing and triage notes (agree or disagree)? Why? @ -I reviewed and agree with nursing and triage notes Were old charts reviewed (outside hosp., previous admission, EMS record, old EKG, old radiological studies, urgent care reports/EKG's, fci records)? Report findings @ -No old charts were reviewed Differential Diagnosis (chest pain, altered mental status, abdominal pain women, abdominal pain men, vaginal bleeding, weakness, fever, dyspnea, syncope, headache, dizziness, GI bleed, back pain, seizure, CVA, palpatations, mental health, musculoskeletal)? @ -Differential includes influenza, RSV, Covid, group A strep, pneumonia, this is not an all inclusive list EKG interpreted by me (3pts min.). @ -As above X-rays interpreted by me (1pt min.). @ -Negative chest x-ray CT interpreted by me (1pt min.). @ -None done U/S interpreted by me (1pt. min.). @ -None done What testing was considered but not performed or refused? (CT, X-rays, U/S, labs)? Why? @ -None What meds were considered but not given or refused? Why? @ -None Did you discuss the management of the patient with other professionals (professionals i.e. , PA, DATA SPECIALIST, lab, RT, psych nurse, social media community manager, paint tinter, teacher, money position officer, heel caser)? Give summary @ -No Was smoking cessation discussed for >3mins.? @ -No Was critical care preformed (if so, how long)? @ -No Were there social determinants of health that impacted care today? How? (Homelessness, low income, unemployed, alcoholism, drug addiction, transportation, low edu. Level, literacy, decrease access to med. care, fpc, rehab)? @ -No Was there de-escalation of care discussed even if they declined (Discuss DNR or withdrawal of care, Hospice)? DNR status @ -No What co-morbidities impacted this encounter? (DM, HTN, Smoking, COPD, CAD, Cancer, CVA, ARF, Chemo, Hep., AIDS, mental health diagnosis, sleep apnea, morbid obesity)? @ -None Was patient admitted / discharged? Hospital course, mention meds given and route, prescriptions, significant lab abnormalities, going to OR and other pertinent info. @ -27-year-old female presenting with chief complaint of URI-like symptoms for the last 3 days. His exam is conducted. She is negative for influenza, RSV, Covid, group A strep. Negative chest x-ray. She is educated on today's findings and supportive management at home. Follow-up with PCP. Report back to ER with any new or worsening symptoms. Discussed return parameters and answered all questions. Patient conveyed verbal understanding and agreed to the plan. I discussed this case in detail with my attending Dr. Gleason Undiagnosed new problem with uncertain prognosis? @ -No Drug Therapy requiring intensive monitoring for toxicity (Heparin, Nitro, Insulin, Cardizem)? @ -No Were any procedures done? @ -No Diagnosis/symptom? @ -URI Acute, or Chronic, or Acute on Chronic? @ -Acute Uncomplicated (without systemic symptoms) or Complicated (systemic symptoms)? @ -Uncomplicated Side effects of treatment? @ -No Exacerbation, Progression, or Severe Exacerbation? @ -No Poses a threat to life or bodily function? How? (Chest pain, [place], [place], pneumonia, PE, COPD, DKA, ARF, appy, cholecystitis, CVA, Diverticulitis, Homicidal, Suicidal, threat to staff... and all critical care pts) @ -No (Ja Ordonez) - Lab Data Lab Results 01/06/23 01/06/23 Range/Units 21:06 23:49 Influenza Type A (PCR) Not Detected (Not Detectd) Influenza Type B (PCR) Not Detected (Not Detectd) RSV (PCR) Not Detected (Not Detectd) SARS-CoV-2 (PCR) Not Detected (Not Detectd) Group A Strep (PCR) NOT DETECTED (Not Detectd) Disposition <Mirta Buchanan - Last Filed: 01/06/23 21:02> Is patient prescribed a controlled substance at d/c from ED?: No Time of Disposition: 23:34 <Ja Ordonez - Last Filed: 01/08/23 04:49> Clinical Impression: Acute upper respiratory infection Disposition: HOME SELF-CARE Condition: Good Instructions (If sedation given, give patient instructions): Upper Respiratory Infection (ED) Additional Instructions: Follow-up with PCP. Report back to ER with any new or worsening symptoms. Prescriptions: Fluticasone Nasal [place] [Flonase Nasal [place]] 1 spray EA NOSTRIL DAILY #16 gm Benzonatate [Tessalon Perles] 100 mg PO TID PRN #15 capsule PRN Reason: cough Referrals: Pete Espinosa NPC [Family Provider] - 1-2 days
--- NOTE | 2023-01-06 21:41 | XR ---
EXAMINATION TYPE: XR chest 2V DATE OF EXAM: 01/06/2023 COMPARISON: 08/08/2022 INDICATION: Cough, fever, short of breath TECHNIQUE: Single frontal view of the chest is obtained. FINDINGS: The heart size is normal. The pulmonary vasculature is normal. The lungs are clear. IMPRESSION: 1. No acute pulmonary process.
[2023-01-07 01:15] VITALS: BP 109/74; PULSE 110; RESP 17; TEMP 98.3
== END 2023-01-07 00:56 | disposition home or self-care (01) ==
LOC: EC 20:18
DX: J06.9 Acute upper respiratory infection, unspecified (principal); J45.909 Unspecified asthma, uncomplicated; I10 Essential (primary) hypertension; Z20.822 Contact with and (suspected) exposure to COVID-19; Z91.048 Other nonmedicinal substance allergy status; Z88.8 Allergy status to other drugs, medicaments and biological substances; Z91.030 Bee allergy status; Z90.49 Acquired absence of other specified parts of digestive tract; Z86.16 Personal history of COVID-19
CPT/HCPCS: 71046; 87636; 87651; 99285

== ENCOUNTER 2023-02-21 02:49 | Emergency (ER) | payer BC, OTHER ==
[2023-02-21 02:54] VITALS: RESP 18; TEMP 98.2
[2023-02-21] MEDS ORDERED: KETOROLAC 15 MG/ML 1 ML VIAL IVP STA (03:23)
--- NOTE | 2023-02-21 03:30 | ED ---
General Adult HPI - General Chief complaint: Back Pain/Injury Stated complaint: chest pain,back pain Time Seen by Provider: 02/21/23 02:55 Source: patient Mode of arrival: wheelchair Limitations: no limitations - History of Present Illness Initial comments: 27-year-old female presents emergency department reporting upper back pain which radiates through to her chest. Started 2 days ago and is not improving. Pain is worse with movement and deep inspiration. She denies fevers, chills. Does admit that she has been coughing. No recent illnesses. Denies any cardiac history. No history of DVT or PE. No leg swelling. No concern for . No other alleviating, precipitating or modifying factors - Related Data Previous Rx's Medication Instructions Recorded Fluticasone Nasal [place] [Flonase 1 spray EA NOSTRIL DAILY #16 gm 07/24/21 Nasal [place]] Ibuprofen [Motrin] 400 mg PO Q6HR PRN #30 tab 12/06/21 Acetaminophen [Tylenol] 2 capsule PO Q4-6H PRN #30 capsule 02/21/22 Benzonatate [Tessalon Perles] 100 mg PO TID PRN #10 capsule 02/21/22 Oseltamivir [Tamiflu] 75 mg PO Q12HR #9 cap 02/22/22 Azithromycin [Zithromax Z Pack] 0 tab PO DIRECTED #6 tab 03/03/22 guaiFENesin-DM 100-10MG/5ML 10 ml PO TID #8 oz 03/03/22 [Robitussin DM] Acetaminophen Tab [Tylenol] 650 mg PO Q6H #30 tab 08/28/22 Ibuprofen [Motrin] 800 mg PO Q8H #30 tab 08/28/22 Benzonatate [Tessalon Perles] 100 mg PO TID PRN #15 capsule 01/06/23 Fluticasone Nasal [place] [Flonase 1 spray EA NOSTRIL DAILY #16 gm 01/06/23 Nasal [place]] Albuterol Inhaler [Ventolin Hfa 1 - 2 puff INHALATION Q6H PRN #1 02/21/23 Inhaler] each Benzonatate [Tessalon Perles] 100 mg PO TID PRN #20 capsule 02/21/23 Cyclobenzaprine [Flexeril] 10 mg PO TID PRN #20 tab 02/21/23 Ketorolac [Toradol] 10 mg PO Q8HR #15 tab 02/21/23 Allergies Allergy/AdvReac Type Severity Reaction Status Date / Time adhesive tape Allergy Rash/Hives Verified 02/21/23 02:51 prednisone Allergy Swelling Verified 02/21/23 02:51 venom-honey bee Allergy Anaphylaxis Verified 02/21/23 02:51 [bee venom (honey bee)] Review of Systems ROS Statement: Those systems with pertinent positive or pertinent negative responses have been documented in the HPI. ROS Other: All systems not noted in ROS Statement are negative. Past Medical History Past Medical History: Asthma, Hypertension Additional Past Medical History / Comment(s): gestational diabetes Covid 05/26 History of Any Multi-Drug Resistant Organisms: MRSA Date of last positivie culture/infection: 2014 MDRO Source:: Skin Past Surgical History: Section, Cholecystectomy Past Anesthesia/Blood Transfusion Reactions: Postoperative Nausea & Vomiting (PONV) Past Psychological History: Anxiety, Bipolar, Panic Disorder Smoking Status: Never smoker Past Alcohol Use History: None Reported Past Drug Use History: None Reported - Past Family History Mother Family Medical History: No Reported History Additional Family Medical History / Comment(s): Patient does not recall any significant family history General Exam Limitations: no limitations General appearance: alert, in no apparent distress Head exam: Present: atraumatic, normocephalic, normal inspection Eye exam: Present: normal appearance, PERRL, EOMI. Absent: scleral icterus, conjunctival injection, periorbital swelling ENT exam: Present: normal exam, mucous membranes moist Neck exam: Present: normal inspection, tenderness (Tenderness to palpation of the posterior scapula). Absent: meningismus, lymphadenopathy Respiratory exam: Present: normal lung sounds bilaterally. Absent: respiratory distress, wheezes, rales, rhonchi, stridor Cardiovascular Exam: Present: regular rate, normal rhythm, normal heart sounds. Absent: systolic murmur, diastolic murmur, rubs, gallop, clicks GI/Abdominal exam: Present: soft, normal bowel sounds. Absent: distended, tenderness, guarding, rebound, rigid Extremities exam: Present: normal inspection, full ROM, normal capillary refill. Absent: tenderness, pedal edema, joint swelling, calf tenderness Back exam: Present: normal inspection Neurological exam: Present: alert, oriented X3, CN II-XII intact Psychiatric exam: Present: normal affect, normal mood Skin exam: Present: warm, dry, intact, normal color. Absent: rash Course Vital Signs 02/21/23 02/21/23 02:51 04:54 Temperature 98.2 F Pulse Rate 95 92 Respiratory 18 18 Rate Blood Pressure 132/94 134/65 O2 Sat by Pulse 98 97 Oximetry Medical Decision Making - Medical Decision Making Was pt. sent in by a medical professional or institution (, MOR, BLUEPRINT PROCESSOR, urgent care, hospital, or [facility]...) When possible be specific @ -No Did you speak to anyone other than the patient for history (EMS, parent, family, police, friend...)? What history was obtained from this source @ -No Did you review nursing and triage notes (agree or disagree)? Why? @ -I reviewed and agree with nursing and triage notes Were old charts reviewed (outside hosp., previous admission, EMS record, old EKG, old radiological studies, urgent care reports/EKG's, [facility] records)? Report findings @ -No old charts were reviewed Differential Diagnosis (chest pain, altered mental status, abdominal pain women, abdominal pain men, vaginal bleeding, weakness, fever, dyspnea, syncope, headache, dizziness, GI bleed, back pain, seizure, CVA, palpatations, mental health, musculoskeletal)? @ -Differential Chest Pain: Stable Angina, Unstable Angina, STEMI, NSTEMI Aortic Dissection, Pneumothorax, Musculoskeletal, Esophageal Spasm GERD, Cholecystitis, Pancreatitis, Zoster, this is not meant to be an all-inclusive list. EKG interpreted by me (3pts min.). @ -Yes and demonstrates sinus rhythm with a rate of 86. DC interval 138. QRS 81. QTC of 410. No acute ST segment elevations. Q wave with inverted T-wave in lead 3 X-rays interpreted by me (1pt min.). @ -Yes and demonstrates no acute process CT interpreted by me (1pt min.). @ -None done U/S interpreted by me (1pt. min.). @ -None done What testing was considered but not performed or refused? (CT, X-rays, U/S, labs)? Why? @ -None What meds were considered but not given or refused? Why? @ -None Did you discuss the management of the patient with other professionals ( professionals i.e. , PA, BLUEPRINT PROCESSOR, lab, RT, psych nurse, criminal justice social worker, health sanitarian, teacher, commanding officer motorized squad, disease case manager rn)? Give summary @ -No Was smoking cessation discussed for >3mins.? @ -No Was critical care preformed (if so, how long)? @ -No Were there social determinants of health that impacted care today? How? (Homelessness, low income, unemployed, alcoholism, drug addiction, transpo rtation, low edu. Level, literacy, decrease access to med. care, half-way, rehab)? @ -No Was there de-escalation of care discussed even if they declined (Discuss DNR or withdrawal of care, Hospice)? DNR status @ -No What co-morbidities impacted this encounter? (DM, HTN, Smoking, COPD, CAD, Cancer, CVA, ARF, Chemo, Hep., AIDS, mental health diagnosis, sleep apnea, morbid obesity)? @ -None Was patient admitted / discharged? Hospital course, mention meds given and route, prescriptions, significant lab abnormalities, going to OR and other pertinent info. @ -Upon arrival patient was placed in room 11. History and physical exam is performed. IV access was established laboratory studies are conducted. Chest x-ray was performed. Symptoms appear musculoskeletal in nature. Laboratory studies are within normal limits including d-dimer. Patient will be treated with Toradol, Tessalon Perles, Flexeril and albuterol inhaler. She is to place warm compresses to the site. Follow up with her doctor and return for any new or worsening symptoms for patient Mariam plan she is discharged in stable condition Undiagnosed new problem with uncertain prognosis? @ -Yes Drug Therapy requiring intensive monitoring for toxicity (Heparin, Nitro, Insulin, Cardizem)? @ -No Were any procedures done? @ -No Diagnosis/symptom? @ -Acute thoracic back pain Acute, or Chronic, or Acute on Chronic? @ -Acute Uncomplicated (without systemic symptoms) or Complicated (systemic symptoms)? @ -Complicated Side effects of treatment? @ -No Exacerbation, Progression, or Severe Exacerbation? @ -No Poses a threat to life or bodily function? How? (Chest pain, [place], [place], pneumonia, PE, COPD, DKA, ARF, appy, cholecystitis, CVA, Diverticulitis, Homicidal, Suicidal, threat to staff... and all critical care pts) @ -No - Lab Data Result diagrams: 02/21/23 04:40 02/21/23 04:40 Lab Results 02/21/23 02/21/23 02/21/23 Range/Units 04:40 04:40 04:40 WBC 8.1 (3.8-10.6) k/uL RBC 4.53 (3.80-5.40) m/uL Hgb 12.7 (11.4-16.0) gm/dL Hct 38.1 (34.0-46.0) % MCV 84.1 (80.0-100.0) fL MCH 28.1 (25.0-35.0) pg MCHC 33.4 (31.0-37.0) g/dL RDW 13.6 (11.5-15.5) % Plt Count 224 (150-450) k/uL MPV 8.4 Neutrophils % 71 % Lymphocytes % 21 % Monocytes % 5 % Eosinophils % 1 % Basophils % 1 % Neutrophils # 5.8 (1.3-7.7) k/uL Lymphocytes # 1.7 (1.0-4.8) k/uL Monocytes # 0.4 (0-1.0) k/uL Eosinophils # 0.1 (0-0.7) k/uL Basophils # 0.0 (0-0.2) k/uL D-Dimer (<0.60) mg/L FEU Sodium 139 (137-145) mmol/L Potassium 3.9 (3.5-5.1) mmol/L Chloride 107 (98-107) mmol/L Carbon Dioxide 24 (22-30) mmol/L Anion Gap 8 mmol/L BUN 15 (7-17) mg/dL Creatinine 0.59 (0.52-1.04) mg/dL Est GFR (CKD-EPI)AfAm >90 (>60 ml/min/1.73 sqM) Est GFR (CKD-EPI)NonAf >90 (>60 ml/min/1.73 sqM) Glucose 161 H (74-99) mg/dL Calcium 9.3 (8.4-10.2) mg/dL Magnesium 1.9 (1.6-2.3) mg/dL Total Bilirubin 0.5 (0.2-1.3) mg/dL AST 24 (14-36) U/L ALT 21 (4-34) U/L Alkaline Phosphatase 87 (38-126) U/L Troponin I <0.012 (0.000-0.034) ng/mL Total Protein 6.4 (6.3-8.2) g/dL Albumin 3.8 (3.5-5.0) g/dL 02/21/23 Range/Units 04:40 WBC (3.8-10.6) k/uL RBC (3.80-5.40) m/uL Hgb (11.4-16.0) gm/dL Hct (34.0-46.0) % MCV (80.0-100.0) fL MCH (25.0-35.0) pg MCHC (31.0-37.0) g/dL RDW (11.5-15.5) % Plt Count (150-450) k/uL MPV Neutrophils % % Lymphocytes % % Monocytes % % Eosinophils % % Basophils % % Neutrophils # (1.3-7.7) k/uL Lymphocytes # (1.0-4.8) k/uL Monocytes # (0-1.0) k/uL Eosinophils # (0-0.7) k/uL Basophils # (0-0.2) k/uL D-Dimer 0.33 (<0.60) mg/L FEU Sodium (137-145) mmol/L Potassium (3.5-5.1) mmol/L Chloride (98-107) mmol/L Carbon Dioxide (22-30) mmol/L Anion Gap mmol/L BUN (7-17) mg/dL Creatinine (0.52-1.04) mg/dL Est GFR (CKD-EPI)AfAm (>60 ml/min/1.73 sqM) Est GFR (CKD-EPI)NonAf (>60 ml/min/1.73 sqM) Glucose (74-99) mg/dL Calcium (8.4-10.2) mg/dL Magnesium (1.6-2.3) mg/dL Total Bilirubin (0.2-1.3) mg/dL AST (14-36) U/L ALT (4-34) U/L Alkaline Phosphatase (38-126) U/L Troponin I (0.000-0.034) ng/mL Total Protein (6.3-8.2) g/dL Albumin (3.5-5.0) g/dL Disposition Clinical Impression: Cough, Pain of right scapula Disposition: HOME SELF-CARE Condition: Stable Instructions (If sedation given, give patient instructions): Chest Wall Pain (ED) Additional Instructions: Please take the anti-inflammatories and muscle relaxers as directed. Place warm compresses to the site. Follow-up with your doctor and return for any new or worsening symptoms Prescriptions: Cyclobenzaprine [Flexeril] 10 mg PO TID PRN #20 tab PRN Reason: Muscle Spasm Benzonatate [Tessalon Perles] 100 mg PO TID PRN #20 capsule PRN Reason: Cough Ketorolac [Toradol] 10 mg PO Q8HR #15 tab Albuterol Inhaler [Ventolin Hfa Inhaler] 1 - 2 puff INHALATION Q6H PRN #1 each PRN Reason: Cough Is patient prescribed a controlled substance at d/c from ED?: No Referrals: Felipa Mesa MD [Primary Care Provider] - 1-2 days Time of Disposition: 06:31
[2023-02-21 05:01] LABS: Basophils % (A) 1 %; Eosinophils # (A) 0.1 k/uL (0-0.7); Eosinophils % (A) 1 %; HCT 38.1 % (34.0-46.0); HGB 12.7 gm/dL (11.4-16.0); Lymphocytes # (A) 1.7 k/uL (1.0-4.8); Lymphocytes % (A) 21 %; MCH 28.1 pg (25.0-35.0); MCHC 33.4 g/dL (31.0-37.0); MCV 84.1 fL (80.0-100.0); Mean Platelet Volume 8.4; Monocytes # (A) 0.4 k/uL (0-1.0); Monocytes % (A) 5 %; Neutrophils # (A) 5.8 k/uL (1.3-7.7); Neutrophils % (A) 71 %; Platelet Count 224 k/uL (150-450); RBC 4.53 m/uL (3.80-5.40); RDW 13.6 % (11.5-15.5); WBC 8.1 k/uL (3.8-10.6)
[2023-02-21 05:11] LABS: AST 24 U/L (14-36); African American GFR (CKD) >90 (>60 ml/min/1.73 sqM); Albumin 3.8 g/dL (3.5-5.0); Anion Gap 8 mmol/L; Blood Urea Nitrogen 15 mg/dL (7-17); Carbon Dioxide 24 mmol/L (22-30); Chloride 107 mmol/L (98-107); Magnesium 1.9 mg/dL (1.6-2.3); Non-African American GFR(CKD) >90 (>60 ml/min/1.73 sqM); Potassium 3.9 mmol/L (3.5-5.1); Sodium 139 mmol/L (137-145); Total Bilirubin 0.5 mg/dL (0.2-1.3); Total Protein 6.4 g/dL (6.3-8.2)
[2023-02-21 05:15] LABS: ALT 21 U/L (4-34); Alkaline Phosphatase 87 U/L (38-126); Calcium 9.3 mg/dL (8.4-10.2); Glucose 161 mg/dL (74-99)
[2023-02-21 05:23] VITALS: BP 134/65; PULSE 92
[2023-02-21] MEDS ORDERED: CYCLOBENZAPRINE 10 MG TAB PO STA (06:26)
--- NOTE | 2023-02-21 07:16 | XR ---
EXAMINATION TYPE: XR chest 2V DATE OF EXAM: 02/21/2023 3:52 AM CLINICAL INDICATION:Female, 27 years old with history of Chest Pain; [facility] COMPARISON: Chest radiographs from 01/06/2023 TECHNIQUE: XR chest 2V Frontal and lateral views of the chest. FINDINGS: Lungs/Pleura: There is no evidence of pleural effusion, focal consolidation, or pneumothorax. Pulmonary vascularity: Unremarkable. Heart/mediastinum: Cardiomediastinal silhouette is unremarkable. Musculoskeletal: No acute osseous pathology. IMPRESSION: No acute cardiopulmonary disease/process.
== END 2023-02-21 06:38 | disposition home or self-care (01) ==
LOC: EC 02:49
DX: M54.6 Pain in thoracic spine (principal); R05.9 Cough, unspecified; I10 Essential (primary) hypertension; J45.909 Unspecified asthma, uncomplicated; F31.9 Bipolar disorder, unspecified; Z79.51 Long term (current) use of inhaled steroids; Z79.899 Other long term (current) drug therapy; Z88.8 Allergy status to other drugs, medicaments and biological substances; Z91.030 Bee allergy status; Z91.09 Other allergy status, other than to drugs and biological substances; Z86.16 Personal history of COVID-19; Z90.49 Acquired absence of other specified parts of digestive tract
CPT/HCPCS: 36415; 93005; 85379; 80053; 83735; 84484; 85025; 71046; 99284; 96374; J1885

== ENCOUNTER 2023-12-28 15:19 | Emergency (ER) | payer BC, OTHER ==
[2023-12-28] MEDS ORDERED: SODIUM CHLORIDE 0.9% 1,000 ML IV STA (15:53)
[2023-12-28] MEDS ORDERED: KETOROLAC 15 MG/ML 1 ML VIAL IVP STA (15:54)
--- NOTE | 2023-12-28 15:54 | ED ---
URI HPI - General Chief Complaint: Upper Respiratory Infection Stated Complaint: Chest pain Time Seen by Provider: 12/28/23 15:47 Source: patient, RN notes reviewed, old records reviewed Mode of arrival: ambulatory Limitations: no limitations - History of Present Illness Initial Comments: This is a 28-year-old female to the ER for evaluation this patient presents today for evaluation in regards to cough congestion runny nose feels like she may have pneumonia MD Complaint: fever, cough, sore throat -: days(s) Severity: severe Severity scale (1-10): 8 Quality: burning, dull Consistency: constant Improves With: nothing Worsens With: nothing, deep breaths Associated Symptoms: denies other symptoms - Related Data Previous Rx's Medication Instructions Recorded Fluticasone Nasal [place] [Flonase 1 spray EA NOSTRIL DAILY #16 gm 07/24/21 Nasal [place]] Ibuprofen [Motrin] 400 mg PO Q6HR PRN #30 tab 12/06/21 Acetaminophen [Tylenol] 2 capsule PO Q4-6H PRN #30 capsule 02/21/22 Benzonatate [Tessalon Perles] 100 mg PO TID PRN #10 capsule 02/21/22 Oseltamivir [Tamiflu] 75 mg PO Q12HR #9 cap 02/22/22 Azithromycin [Zithromax Z Pack] 0 tab PO DIRECTED #6 tab 03/03/22 guaiFENesin-DM 100-10MG/5ML 10 ml PO TID #8 oz 03/03/22 [Robitussin DM] Acetaminophen Tab [Tylenol] 650 mg PO Q6H #30 tab 08/28/22 Ibuprofen [Motrin] 800 mg PO Q8H #30 tab 08/28/22 Benzonatate [Tessalon Perles] 100 mg PO TID PRN #15 capsule 01/06/23 Fluticasone Nasal [place] [Flonase 1 spray EA NOSTRIL DAILY #16 gm 01/06/23 Nasal [place]] Albuterol Inhaler [Ventolin Hfa 1 - 2 puff INHALATION Q6H PRN #1 02/21/23 Inhaler] each Benzonatate [Tessalon Perles] 100 mg PO TID PRN #20 capsule 02/21/23 Cyclobenzaprine [Flexeril] 10 mg PO TID PRN #20 tab 02/21/23 Ketorolac [Toradol] 10 mg PO Q8HR #15 tab 02/21/23 Amoxic-Pot Clav 875-125Mg 1 tab PO Q12HR #20 tablet 12/28/23 [Augmentin 875-125] Allergies Allergy/AdvReac Type Severity Reaction Status Date / Time adhesive tape Allergy Rash/Hives Verified 12/28/23 15:35 prednisone Allergy Swelling Verified 12/28/23 15:35 venom-honey bee Allergy Anaphylaxis Verified 12/28/23 15:35 [bee venom (honey bee)] Review of Systems ROS Statement: Those systems with pertinent positive or pertinent negative responses have been documented in the HPI. ROS Other: All systems not noted in ROS Statement are negative. Past Medical History Past Medical History: Asthma, Hypertension Additional Past Medical History / Comment(s): gestational diabetes Covid 05/26 History of Any Multi-Drug Resistant Organisms: MRSA Date of last positivie culture/infection: 2014 MDRO Source:: Skin Past Surgical History: Section, Cholecystectomy Past Anesthesia/Blood Transfusion Reactions: Postoperative Nausea & Vomiting (PONV) Past Psychological History: Anxiety, Bipolar, Panic Disorder Smoking Status: Never smoker Past Alcohol Use History: None Reported Past Drug Use History: None Reported - Past Family History Mother Family Medical History: No Reported History Additional Family Medical History / Comment(s): Patient does not recall any significant family history General Exam Limitations: no limitations General appearance: alert, in no apparent distress Head exam: Present: atraumatic, normocephalic, normal inspection Eye exam: Present: normal appearance, PERRL, EOMI. Absent: scleral icterus, conjunctival injection, periorbital swelling ENT exam: Present: normal exam, mucous membranes moist Neck exam: Present: normal inspection. Absent: tenderness, meningismus, lymphadenopathy Respiratory exam: Present: normal lung sounds bilaterally. Absent: respiratory distress, wheezes, rales, rhonchi, stridor Cardiovascular Exam: Present: regular rate, normal rhythm, normal heart sounds. Absent: systolic murmur, diastolic murmur, rubs, gallop, clicks GI/Abdominal exam: Present: soft, normal bowel sounds. Absent: distended, tenderness, guarding, rebound, rigid Extremities exam: Present: normal inspection, full ROM, normal capillary refill. Absent: tenderness, pedal edema, joint swelling, calf tenderness Back exam: Present: normal inspection Neurological exam: Present: alert, oriented X3, CN II-XII intact Psychiatric exam: Present: normal affect, normal mood Skin exam: Present: warm, dry, intact, normal color. Absent: rash Course Vital Signs 12/28/23 12/28/23 12/28/23 15:31 15:53 17:25 Temperature 98.3 F Pulse Rate 102 H 92 Respiratory 20 18 Rate Blood Pressure 139/88 O2 Sat by Pulse 97 Oximetry 12/28/23 12/28/23 17:37 18:07 Temperature 98.4 F Pulse Rate 96 91 Respiratory 18 Rate Blood Pressure 131/79 O2 Sat by Pulse 98 Oximetry - Reevaluation(s) Reevaluation #1: 12/28/23 16:39 Medical records reviewed Reevaluation #2: 12/28/23 17:37 patient symptoms improved Reevaluation #3: 12/28/23 17:37 Patient informed of results and questions answered Reevaluation #4: Was pt. sent in by a medical professional or institution (, PA, DRIVER HELPER, urgent care, hospital, or prison...) When possible be specific @ -no Did you speak to anyone other than the patient for history (EMS, parent, family, police, friend...)? What history was obtained from this source @ -no Did you review nursing and triage notes (agree or disagree)? Why? @ -agree Are old charts reviewed (outside hosp., previous admission, EMS record, old EKG, old radiological studies, urgent care reports/EKG's, prison records)? Report findings @ -yes Differential Diagnosis (chest pain, altered mental status, abdominal pain women, abdominal pain men, vaginal bleeding, weakness, fever, dyspnea, syncope, headache, dizziness, GI bleed, back pain, seizure, CVA, palpatations, mental health, musculoskeletal)? @ -prior EKG interpreted by me (3pts min.). @ -yes X-rays interpreted by me (1pt min.). @ -yes negative for acute disease CT interpreted by me (1pt min.). @ -no U/S interpreted by me (1pt. min.). @ -no What testing was considered but not performed or refused? (CT, X-rays, U/S, labs)? Why? @ -none What meds were considered but not given or refused? Why? @ -none Did you discuss the management of the patient with other professionals (professionals i.e. , PA, DRIVER HELPER, lab, RT, psych nurse, social and political studies professor, blacktop paver operator, teacher, aviation tactical readiness officer, casework specialist)? Give summary @ -no Was smoking cessation discussed for >3mins.? @ -no Was critical care preformed (if so, how long)? @ -no Were there social determinants of health that impacted care today? How? (Ho melessness, low income, unemployed, alcoholism, drug addiction, transportation, low edu. Level, literacy, decrease access to med. care, group home, rehab)? @ -none Was there de-escalation of care discussed even if they declined (Discuss DNR or withdrawal of care, Hospice)? DNR status @ -no What co-morbidities impacted this encounter? (DM, HTN, Smoking, COPD, CAD, Cancer, CVA, ARF, Chemo, Hep., AIDS, mental health diagnosis, sleep apnea, morbid obesity)? @ -none Was patient admitted / discharged? Hospital course, mention meds given and route, prescriptions, significant lab abnormalities, going to OR and other pertinent info. @ - 28 female to the ER for evaluation of upper respiratory infection positive for pneumonia patient can be discharged home on antibiotics Discharge Undiagnosed new problem with uncertain prognosis? @ -no Drug Therapy requiring intensive monitoring for toxicity (Heparin, Nitro, Insulin, Cardizem)? @ -no Were any procedures done? @ -no Diagnosis/symptom? @ -Fever pneumonia Acute, or Chronic, or Acute on Chronic? @ -Acute Uncomplicated (without systemic symptoms) or Complicated (systemic symptoms)? @ -Complicated Side effects of treatment? @ -no Exacerbation, Progression, or Severe Exacerbation? @ -exacerbation Poses a threat to life or bodily function? How? (Chest pain, [place], [place], pneumonia, PE, COPD, DKA, ARF, appy, cholecystitis, CVA, Diverticulitis, Homicidal, Suicidal, threat to staff... and all critical care pts) @ -Yes with infection Reevaluation #5: Differential Dyspnea: Coronary syndrome, arrhythmia, tamponade, asthma, COPD, pulmonary embolism, pneumonia, pneumothorax, pulmonary effusion, anaphylaxis, diabetic ketoacidosis, flailed chest, pulmonary contusion, diaphragmatic rupture, anemia, neuromuscular, this is not meant to be an all-inclusive list. Medical Decision Making - Medical Decision Making 28 female to the ER for evaluation of upper respiratory infection positive for pneumonia patient can be discharged home on antibiotics - Lab Data Lab Results 12/28/23 Range/Units 16:22 Influenza Type A (PCR) Not Detected (Not Detectd) Influenza Type B (PCR) Not Detected (Not Detectd) RSV (PCR) Not Detected (Not Detectd) SARS-CoV-2 (PCR) Not Detected (Not Detectd) - EKG Data -: EKG Interpreted by Me (EKG is sinus 98 AL 140 QRS 89 QTc 393) - Radiology Data Radiology results: report reviewed (Chest x-ray is positive for pneumonia), image reviewed Disposition Clinical Impression: Fever, Pneumonia Disposition: HOME SELF-CARE Condition: Good Instructions (If sedation given, give patient instructions): Community Acquired Pneumonia (ED) Prescriptions: Amoxic-Pot Clav 875-125Mg [Augmentin 875-125] 1 tab PO Q12HR #20 tablet Is patient prescribed a controlled substance at d/c from ED?: No Referrals: Felipa Mesa MD [Primary Care Provider] - 1-2 days Time of Disposition: 17:00
[2023-12-28] MEDS ORDERED: DEXAMETHASONE SOD PHOSPHATE 10 MG/ML 1 ML VIAL IVP STA (15:55)
[2023-12-28 15:58] VITALS: RESP 18
[2023-12-28] MEDS ORDERED: KETOROLAC 15 MG/ML 1 ML VIAL IM STA (16:10)
--- NOTE | 2023-12-28 16:30 | XR ---
EXAMINATION TYPE: XR chest 1V portable DATE OF EXAM: 12/28/2023 4:17 PM CLINICAL INDICATION: Female, 28 years old with history of cp; [facility] COMPARISON: Chest radiographs from TECHNIQUE: XR chest 1V portable Frontal view of the chest. FINDINGS: Lungs/Pleura: Left upper lung airspace opacitiese There is no evidence of pleural effusion, focal con solidation, or pneumothorax. Pulmonary vascularity: Unremarkable. Heart/mediastinum: Cardiomediastinal silhouette is unremarkable. Musculoskeletal: No acute osseous pathology. Other findings: None Lines/Tubes: IMPRESSION: Left upper lung airspace opacities correlate for developing pneumonia. [facility], , 12/28/2023 4:27 PM
[2023-12-28] MEDS: ACETAMINOPHEN TAB 500 MG TAB PO STA (16:37)
[2023-12-28] MEDS: dexAMETHasone 2 MG TAB PO STA (16:38)
[2023-12-28] MEDS ORDERED: IBUPROFEN 600 MG STARTER PACK 4 TAB BTL PO STA (16:58)
[2023-12-28] MEDS ORDERED: AMOXIC-POT CLAV 875MG STARTER PACK 2 TAB BTL PO STA (16:58)
[2023-12-28] MEDS ORDERED: AMOXIC-POT CLAV 875-125MG 1 EACH TAB PO STA (16:58)
[2023-12-28] MEDS: IPRATROPIUM-ALBUTEROL 3 ML NEB INHALATION STA (17:25)
[2023-12-28 18:10] VITALS: BP 131/79; PULSE 91; TEMP 98.4
== END 2023-12-28 19:00 | disposition home or self-care (01) ==
LOC: EC 15:19
CPT/HCPCS: 71045; 87636; 93005; 94640; 99284

== ENCOUNTER 2024-07-02 20:47 | Emergency (ER) | payer OTHER ==
[2024-07-02 20:54] VITALS: RESP 18
--- NOTE | 2024-07-02 20:57 | ED ---
URI HPI - General Chief Complaint: Upper Respiratory Infection Stated Complaint: Left ear hearing loss, chest pain Time Seen by Provider: 07/02/24 20:55 Source: patient, RN notes reviewed, old records reviewed Mode of arrival: ambulatory Limitations: no limitations - History of Present Illness Initial Comments: This is a 29-year-old female to the ER for evaluation of severe left ear pain. Patient has had worsening left ear pain since this afternoon decreased hearing of the left ear severe pain of the left ear swelling and redness of the left lobe. Patient states the ear is just painful, atraumatic no fevers she does have a mild sore throat swelling of the left side of her throat as well and noted some swelling on the left side of her cheek MD Complaint: sore throat, nasal congestion, other (Left ear pain) -: hour(s) Severity: moderate Severity scale (1-10): 4 Quality: sharp, crushing Consistency: constant Improves With: nothing Worsens With: nothing Treatments Prior to Arrival: none - Related Data Previous Rx's Medication Instructions Recorded Fluticasone Nasal [place] [Flonase 1 spray EA NOSTRIL DAILY #16 gm 07/24/21 Nasal [place]] Ibuprofen [Motrin] 400 mg PO Q6HR PRN #30 tab 12/06/21 Acetaminophen [Tylenol] 2 capsule PO Q4-6H PRN #30 capsule 02/21/22 Benzonatate [Tessalon Perles] 100 mg PO TID PRN #10 capsule 02/21/22 Oseltamivir [Tamiflu] 75 mg PO Q12HR #9 cap 02/22/22 Azithromycin [Zithromax Z Pack] 0 tab PO DIRECTED #6 tab 03/03/22 guaiFENesin-DM 100-10MG/5ML 10 ml PO TID #8 oz 03/03/22 [Robitussin DM] Acetaminophen Tab [Tylenol] 650 mg PO Q6H #30 tab 08/28/22 Ibuprofen [Motrin] 800 mg PO Q8H #30 tab 08/28/22 Benzonatate [Tessalon Perles] 100 mg PO TID PRN #15 capsule 01/06/23 Fluticasone Nasal [place] [Flonase 1 spray EA NOSTRIL DAILY #16 gm 01/06/23 Nasal [place]] Albuterol Inhaler [Ventolin Hfa 1 - 2 puff INHALATION Q6H PRN #1 02/21/23 Inhaler] each Benzonatate [Tessalon Perles] 100 mg PO TID PRN #20 capsule 02/21/23 Cyclobenzaprine [Flexeril] 10 mg PO TID PRN #20 tab 02/21/23 Ketorolac [Toradol] 10 mg PO Q8HR #15 tab 02/21/23 Amoxic-Pot Clav 875-125Mg 1 tab PO Q12HR #20 tablet 12/28/23 [Augmentin 875-125] Allergies Allergy/AdvReac Type Severity Reaction Status Date / Time adhesive tape Allergy Rash/Hives Verified 07/02/24 20:54 prednisone Allergy Swelling Verified 07/02/24 20:54 venom-honey bee Allergy Anaphylaxis Verified 07/02/24 20:54 [bee venom (honey bee)] Review of Systems ROS Statement: Those systems with pertinent positive or pertinent negative responses have been documented in the HPI. ROS Other: All systems not noted in ROS Statement are negative. Past Medical History Past Medical History: Asthma, Hypertension Additional Past Medical History / Comment(s): gestational diabetes Covid 05/26 History of Any Multi-Drug Resistant Organisms: MRSA Date of last positivie culture/infection: 2014 MDRO Source:: Skin Past Surgical History: Section, Cholecystectomy Past Anesthesia/Blood Transfusion Reactions: Postoperative Nausea & Vomiting (PONV) Past Psychological History: Anxiety, Bipolar, Panic Disorder Smoking Status: Never smoker Past Alcohol Use History: None Reported Past Drug Use History: None Reported - Past Family History Mother Family Medical History: No Reported History Additional Family Medical History / Comment(s): Patient does not recall any significant family history General Exam Limitations: no limitations General appearance: alert, in no apparent distress Head exam: Present: atraumatic, normocephalic, normal inspection Eye exam: Present: normal appearance, PERRL, EOMI. Absent: scleral icterus, conjunctival injection, periorbital swelling ENT exam: Present: mucous membranes moist, TM's normal bilaterally (Left TM external canal cellulitis) Neck exam: Present: normal inspection. Absent: tenderness, meningismus, lymphadenopathy Respiratory exam: Present: normal lung sounds bilaterally. Absent: respiratory distress, wheezes, rales, rhonchi, stridor Cardiovascular Exam: Present: regular rate, normal rhythm, normal heart sounds. Absent: systolic murmur, diastolic murmur, rubs, gallop, clicks GI/Abdominal exam: Present: soft, normal bowel sounds. Absent: distended, tenderness, guarding, rebound, rigid Extremities exam: Present: normal inspection, full ROM, normal capillary refill. Absent: tenderness, pedal edema, joint swelling, calf tenderness Back exam: Present: normal inspection Neurological exam: Present: alert, oriented X3, CN II-XII intact Psychiatric exam: Present: normal affect, normal mood Skin exam: Present: warm, dry, intact, normal color. Absent: rash Course Vital Signs 07/02/24 20:50 Temperature 98.4 F Pulse Rate 103 H Respiratory 18 Rate Blood Pressure 140/106 O2 Sat by Pulse 95 Oximetry - Reevaluation(s) Reevaluation #1: 07/02/24 22:10 Medical records reviewed Reevaluation #2: 07/02/24 22:10 Patient's symptoms improved Reevaluation #3: 07/02/24 22:10 Patient informed of results and questions answered Reevaluation #4: Was pt. sent in by a medical professional or institution (, PA, ELEMENT SETTER, urgent care, hospital, or group home...) When possible be specific @ -no Did you speak to anyone other than the patient for history (EMS, parent, family, police, friend...)? What history was obtained from this source @ -no Did you review nursing and triage notes (agree or disagree)? Why? @ -agree Are old charts reviewed (outside hosp., previous admission, EMS record, old EKG, old radiological studies, urgent care reports/EKG's, group home records)? Report findings @ -yes Differential Diagnosis (chest pain, altered mental status, abdominal pain women, abdominal pain men, vaginal bleeding, weakness, fever, dyspnea, syncope, headache, dizziness, GI bleed, back pain, seizure, CVA, palpatations, mental health, musculoskeletal)? @ -prior EKG interpreted by me (3pts min.). @ -yes X-rays interpreted by me (1pt min.). @ -yes negative for acute disease CT interpreted by me (1pt min.). @ -no U/S interpreted by me (1pt. min.). @ -no What testing was considered but not performed or refused? (CT, X-rays, U/S, labs)? Why? @ -none What meds were considered but not given or refused? Why? @ -none Did you discuss the management of the patient with other professionals (professionals i.e. , PA, ELEMENT SETTER, lab, RT, psych nurse, social welfare research worker, [place] construction supervisor, teacher, chief analytics officer, employment case manager)? Give summary @ -no Was smoking cessation discussed for >3mins.? @ -no Was critical care preformed (if so, how long)? @ -no Were there social determinants of health that impacted care today? How? (Homelessness, low income, unemployed, alcoholism, drug addiction, tra nsportation, low edu. Level, literacy, decrease access to med. care, intermediate, rehab)? @ -none Was there de-escalation of care discussed even if they declined (Discuss DNR or withdrawal of care, Hospice)? DNR status @ -no What co-morbidities impacted this encounter? (DM, HTN, Smoking, COPD, CAD, Cancer, CVA, ARF, Chemo, Hep., AIDS, mental health diagnosis, sleep apnea, morbid obesity)? @ -none Was patient admitted / discharged? Hospital course, mention meds given and route, prescriptions, significant lab abnormalities, going to OR and other pertinent info. @ - Undiagnosed new problem with uncertain prognosis? @ -no Drug Therapy requiring intensive monitoring for toxicity (Heparin, Nitro, Insulin, Cardizem)? @ -no Were any procedures done? @ -no Diagnosis/symptom? @ - Acute, or Chronic, or Acute on Chronic? @ -Acute Uncomplicated (without systemic symptoms) or Complicated (systemic symptoms)? @ -Complicated Side effects of treatment? @ -no Exacerbation, Progression, or Severe Exacerbation? @ -exacerbation Poses a threat to life or bodily function? How? (Chest pain, [place], [place], pneumonia, PE, COPD, DKA, ARF, appy, cholecystitis, CVA, Diverticulitis, Homicidal, Suicidal, threat to staff... and all critical care pts) @ -yes Medical Decision Making - Medical Decision Making 29 female is here for evaluation of severe left ear pain severe tenderness, patient has otitis externa will be placed on oral and eardrops and can be discharged home - EKG Data -: EKG Interpreted by Me (EKG sinus 97 NM 143 QRS 89 QTc 396) Disposition Clinical Impression: Otitis media, Left otitis externa Disposition: HOME SELF-CARE Condition: Good Instructions (If sedation given, give patient instructions): Barotitis Media (ED) Is patient prescribed a controlled substance at d/c from ED?: No Referrals: Felipa Mesa MD [Primary Care Provider] - 1-2 days Time of Disposition: 22:00
[2024-07-02] MEDS: ACETAMINOPHEN TAB 500 MG TAB PO STA (21:29)
[2024-07-02] MEDS: IBUPROFEN 800 MG TAB PO STA (21:30)
--- NOTE | 2024-07-02 21:37 | XR ---
EXAMINATION TYPE: XR chest 2V DATE OF EXAM: 07/02/2024 9:29 PM COMPARISON: Chest radiographs from 12/26/2023 CLINICAL INDICATION: Female, 29 years old with history of pain; [facility] TECHNIQUE: XR chest 2V Frontal and lateral views of the chest. FINDINGS: Lungs/Pleura: There is no evidence of pleural effusion, focal consolidation, or pneumothorax. Pulmonary vascularity: Unremarkable. Heart/mediastinum: Cardiomediastinal silhouette is unremarkable. Musculoskeletal: No acute osseous pathology. Other findings: None IMPRESSION: No acute cardiopulmonary disease/process. [facility], , 07/02/2024 9:35 PM
[2024-07-02 22:16] LABS: Influenza A Not Detected (Not Detectd); Influenza B Not Detected (Not Detectd); RSV Not Detected (Not Detectd)
[2024-07-02] MEDS: traMADol 50 MG TAB PO STA (22:17)
[2024-07-02] MEDS: AMOXIC-POT CLAV 875-125MG 1 EACH TAB PO STA (22:18)
[2024-07-02] MEDS: traMADol 50 MG STARTER PACK 3 TAB BTL PO STA (22:18)
[2024-07-02 22:20] VITALS: BP 168/99; PULSE 100; TEMP 98.9
[2024-07-02] MEDS: CIPROFLOXACIN-DEXAMETH 0.3-0.1% DROPS 7.5 ML BTL LEFT EAR STA (22:37)
== END 2024-07-02 22:37 | disposition home or self-care (01) ==
LOC: EC 20:47
DX: H60.92 Unspecified otitis externa, left ear (principal); H66.92 Otitis media, unspecified, left ear; R07.0 Pain in throat; Z91.030 Bee allergy status; Z88.8 Allergy status to other drugs, medicaments and biological substances
CPT/HCPCS: 71046; 87636; 93005; 99285

== ENCOUNTER 2024-07-22 02:02 | Emergency (ER) | payer OTHER ==
[2024-07-22 02:07] VITALS: BP 144/99; PULSE 98; RESP 18; TEMP 98
[2024-07-22] MEDS: ACET/COD 300 MG/30 MG STARTER PACK 6 TAB BTL PO STA (03:21)
[2024-07-22] MEDS: KETOROLAC 15 MG/ML 1 ML VIAL IM STA (03:21)
[2024-07-22] MEDS: CEFDINIR 300 MG CAP PO STA (03:22)
--- NOTE | 2024-07-22 03:30 | ED ---
ENT HPI - General Chief complaint: Dental/Oral Stated complaint: tooth pain Time Seen by Provider: 07/22/24 03:25 Source: patient, RN notes reviewed Mode of arrival: ambulatory Limitations: no limitations - History of Present Illness Initial comments: 29-year-old female presenting for left lower dental pain x 3 days. States she has an exposed nerve with a fractured tooth on the left lower molar which she believes is causing the pain. States she was recently treated for a left ear infection with Augmentin 2 weeks ago. She is able to tolerate orals. No difficulty breathing or swallowing. No lip or tongue swelling. - Related Data Previous Rx's Medication Instructions Recorded Fluticasone Nasal [place] [Flonase 1 spray EA NOSTRIL DAILY #16 gm 07/24/21 Nasal [place]] Ibuprofen [Motrin] 400 mg PO Q6HR PRN #30 tab 12/06/21 Acetaminophen [Tylenol] 2 capsule PO Q4-6H PRN #30 capsule 02/21/22 Benzonatate [Tessalon Perles] 100 mg PO TID PRN #10 capsule 02/21/22 Oseltamivir [Tamiflu] 75 mg PO Q12HR #9 cap 02/22/22 Azithromycin [Zithromax Z Pack] 0 tab PO DIRECTED #6 tab 03/03/22 guaiFENesin-DM 100-10MG/5ML 10 ml PO TID #8 oz 03/03/22 [Robitussin DM] Acetaminophen Tab [Tylenol] 650 mg PO Q6H #30 tab 08/28/22 Ibuprofen [Motrin] 800 mg PO Q8H #30 tab 08/28/22 Benzonatate [Tessalon Perles] 100 mg PO TID PRN #15 capsule 01/06/23 Fluticasone Nasal [place] [Flonase 1 spray EA NOSTRIL DAILY #16 gm 01/06/23 Nasal [place]] Albuterol Inhaler [Ventolin Hfa 1 - 2 puff INHALATION Q6H PRN #1 02/21/23 Inhaler] each Benzonatate [Tessalon Perles] 100 mg PO TID PRN #20 capsule 02/21/23 Cyclobenzaprine [Flexeril] 10 mg PO TID PRN #20 tab 02/21/23 Ketorolac [Toradol] 10 mg PO Q8HR #15 tab 02/21/23 Amoxic-Pot Clav 875-125Mg 1 tab PO Q12HR #20 tablet 12/28/23 [Augmentin 875-125] Acetaminophen Tab [Tylenol Tab] 500 mg PO Q4H #60 tablet 07/02/24 Amoxic-Pot Clav 875-125Mg 1 tab PO Q12HR 10 Days #20 tab 07/02/24 [Augmentin 875-125] Ibuprofen [Motrin] 600 mg PO Q8HR #60 tab 07/02/24 clindamycin HCL 300 mg PO QID #40 cap 07/22/24 Allergies Allergy/AdvReac Type Severity Reaction Status Date / Time adhesive tape Allergy Rash/Hives Verified 07/22/24 02:04 prednisone Allergy Swelling Verified 07/22/24 02:04 venom-honey bee Allergy Anaphylaxis Verified 07/22/24 02:04 [bee venom (honey bee)] Review of Systems ROS Statement: Those systems with pertinent positive or pertinent negative responses have been documented in the HPI. ROS Other: All systems not noted in ROS Statement are negative. Past Medical History Past Medical History: Asthma, Hypertension Additional Past Medical History / Comment(s): gestational diabetes Covid 05/26 History of Any Multi-Drug Resistant Organisms: MRSA Date of last positivie culture/infection: 2014 MDRO Source:: Skin Past Surgical History: Section, Cholecystectomy Past Anesthesia/Blood Transfusion Reactions: Postoperative Nausea & Vomiting (PONV) Past Psychological History: Anxiety, Bipolar, Panic Disorder Smoking Status: Never smoker Past Alcohol Use History: None Reported Past Drug Use History: None Reported - Past Family History Mother Family Medical History: No Reported History Additional Family Medical History / Comment(s): Patient does not recall any significant family history General Exam Limitations: no limitations General appearance: alert, in no apparent distress Head exam: Present: atraumatic, normocephalic, normal inspection Eye exam: Present: normal appearance, PERRL, EOMI. Absent: scleral icterus, conjunctival injection, periorbital swelling ENT exam: Present: mucous membranes moist, other (No lip or tongue swelling). Absent: normal exam, normal oropharynx (Dental caries throughout oral cavity. There is a fractured left lower molar with pain to palpation. No fluctuant abscesses or active drainage) Neck exam: Present: normal inspection. Absent: tenderness, meningismus, lymphadenopathy Respiratory exam: Present: normal lung sounds bilaterally. Absent: respiratory distress, wheezes, rales, rhonchi, stridor Cardiovascular Exam: Present: regular rate, normal rhythm, normal heart sounds. Absent: systolic murmur, diastolic murmur, rubs, gallop, clicks Neurological exam: Present: alert, oriented X3 Psychiatric exam: Present: normal affect, normal mood Skin exam: Present: warm, dry, intact, normal color. Absent: rash Course Vital Signs 07/22/24 02:04 Temperature 98.0 F Pulse Rate 98 Respiratory 18 Rate Blood Pressure 144/99 O2 Sat by Pulse 96 Oximetry Medical Decision Making - Medical Decision Making Was pt. sent in by a medical professional or institution (, MOR, STEAM DISTRIBUTION SUPERVISOR, urgent care, hospital, or correction...) When possible be specific @ -No Did you speak to anyone other than the patient for history (EMS, parent, family, police, friend...)? What history was obtained from this source @ -No Did you review nursing and triage notes (agree or disagree)? Why? @ -I reviewed and agree with nursing and triage notes Were old charts reviewed (outside hosp., previous admission, EMS record, old EKG, old radiological studies, urgent care reports/EKG's, correction records)? Report findings @ -No old charts were reviewed Differential Diagnosis (chest pain, altered mental status, abdominal pain women, abdominal pain men, vaginal bleeding, weakness, fever, dyspnea, syncope, headache, dizziness, GI bleed, back pain, seizure, CVA, palpatations, mental health, musculoskeletal)? @ -Dental infection, dental abscess, Praful's angina, gingivitis, fractured tooth EKG interpreted by me (3pts min.). @ -None X-rays interpreted by me (1pt min.). @ -None done CT interpreted by me (1pt min.). @ -None done U/S interpreted by me (1pt. min.). @ -None done What testing was considered but not performed or refused? (CT, X-rays, U/S, labs)? Why? @ -None What meds were considered but not given or refused? Why? @ -None Did you discuss the management of the patient with other professionals (professionals i.e. , MOR, STEAM DISTRIBUTION SUPERVISOR, lab, RT, psych nurse, social sciences professor, manager chemical, teacher, conservation officer, onsite case manager)? Give summary @ -No Was smoking cessation discussed for >3mins.? @ -No Was critical care preformed (if so, how long)? @ -No Were there social determinants of health that impacted care today? How? (Homelessness, low income, unemployed, alcoholism, drug addiction, transportation, low edu. Level, literacy, decrease access to med. care, alf, rehab)? @ -No Was there de-escalation of care discussed even if they declined (Discuss DNR or withdrawal of care, Hospice)? DNR status @ -No What co-morbidities impacted this encounter? (DM, HTN, Smoking, COPD, CAD, Cancer, CVA, ARF, Chemo, Hep., AIDS, mental health diagnosis, sleep apnea, morbid obesity)? @ -None Was patient admitted / discharged? Hospital course, mention meds given and route, prescriptions, significant lab abnormalities, going to OR and other pertinent info. @ -Discharge. 29-year-old female presenting for dental pain x 3 days. No red flag symptoms. Patient is able to breathe and swallow without difficulties. On physical examination there are dental caries throughout oral cavity and fractured left lower molar with pain to palpation. Patient is provided with appropriate pain control and antibiotics. I recommended following up with a dentist as soon as possible. Appropriate return precautions and supportive care discussed. Case was discussed with my ED attending Dr. Norton. Undiagnosed new problem with uncertain prognosis? @ -No Drug Therapy requiring intensive monitoring for toxicity (Heparin, Nitro, Insulin, Cardizem)? @ -No Were any procedures done? @ -No Diagnosis/symptom? @ -Left dental infection Acute, or Chronic, or Acute on Chronic? @ -Acute Uncomplicated (without systemic symptoms) or Complicated (systemic symptoms)? @ -Uncomplicated Side effects of treatment? @ -No Exacerbation, Progression, or Severe Exacerbation? @ -No Poses a threat to life or bodily function? How? (Chest pain, [place], [place], pneumonia, PE, COPD, DKA, ARF, appy, cholecystitis, CVA, Diverticulitis, Homicidal, Suicidal, threat to staff... and all critical care pts) @ -No Disposition Clinical Impression: Dental infection Disposition: HOME SELF-CARE Condition: Stable Instructions (If sedation given, give patient instructions): Toothache (ED) Additional Instructions: Take clindamycin as prescribed. Alternate Tylenol threes and ibuprofen for pain. Apply ice to the left cheek. Follow-up with dentist as soon as possible. Please return to the Emergency Department if symptoms worsen or any other concerns. Prescriptions: clindamycin HCL 300 mg PO QID #40 cap Is patient prescribed a controlled substance at d/c from ED?: No Referrals: Felpia Mesa MD [Primary Care Provider] - 1-2 days Time of Disposition: 03:56
== END 2024-07-22 03:41 | disposition home or self-care (01) ==
LOC: EC 02:02
DX: K04.7 Periapical abscess without sinus (principal); Z91.09 Other allergy status, other than to drugs and biological substances; Z91.030 Bee allergy status; Z88.8 Allergy status to other drugs, medicaments and biological substances
CPT/HCPCS: 99282; 96372; J1885